=== PATIENT | female | born 1945 | race Caucasian/White ===

== ENCOUNTER 2017-08-16 15:59 | Emergency (ER) | payer MEDICARE ==
[2017-08-16] MEDS ORDERED: METOCLOPRAMIDE HCL INJ/PF 10 MG/2 ML SDV IV ONE (16:20)
--- NOTE | 2017-08-16 16:28 | ER Document Report ---
ED General - General Stated Complaint: ABDOMINAL PAIN Time Seen by Provider: 08/16/17 16:07 - HPI Notes: Patient is a 72-year-old female with a history of lung cancer (RUL removed), COPD (O2 dependent on 4L NC), AAA (9cm- per family on 1st CT), GERD who presents the ED complaining of right lower quadrant pain and epigastric versus right upper quadrant pain. 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 Certified Maintenance Welder states that there is no acute pulmonary condition at this time. Patient states that she has had this pain for months, but began getting worse over the last couple days. Patient states that she has been constipated, but did have a bowel movement today. She is urinating normally. Patient is not sure if food improves or worsens her symptoms. Patient has had nausea without vomiting patient states that the pain does not radiate. Pain is described as a sharp pain. Certified Maintenance Welder wanted her evaluated because of the risk of a rupturing AAA. Patient admits allergy to PCN's. Patient is a continued smoker. Denies any headache, fever, neck pain, URI, sore throat, chest pain, palpitations, syncope, cough, acute shortness of breath, wheeze, dyspnea, melena, hematochezia , vomiting/diarrhea, urinary retention, dysuria, hematuria, back pain, loss of control of bowel or bladder, numbness/tingling, saddle anesthesia, muscle paralysis/weakness, or rash. Family also states that they had a repeat CT which showed vasculature to be no more than 3cm. - Related Data Allergies/Adverse Reactions: Penicillins Allergy (Verified 08/16/17 17:39) Past Medical History - Social History Smoking Status: Current Every Day Smoker Family History: Reviewed & Not Pertinent Review of Systems - Review of Systems Notes: REVIEW OF SYSTEMS: CONSTITUTIONAL : Denies fever, chills, or sweats. Denies recent illness. EENT: Denies eye, ear, throat, or mouth pain or symptoms. Denies nasal or sinus congestion or discharge. Denies throat, tongue, or mouth swelling or difficulty swallowing. CARDIOVASCULAR: Denies chest pain. Denies palpitations or racing or irregular heart beat. Denies ankle edema. RESPIRATORY: see hpi. No acute resp symptoms. Denies acute cough, cold, or chest congestion. Denies acute shortness of breath, difficulty breathing, or wheezing. GASTROINTESTINAL: see hpi. GENITOURINARY: Denies difficulty urinating, painful urination, burning, frequency, blood in urine, or discharge. MUSCULOSKELETAL: Denies back or neck pain or stiffness. Denies joint pain or swelling. SKIN: Denies rash, lesions or sores. NEUROLOGICAL: Denies confusion or altered mental status. Denies passing out or loss of consciousness. Denies dizziness or lightheadedness. Denies headache. Denies weakness or paralysis or loss of use of either side. Denies problems with gait or speech. Denies sensory loss, numbness, or tingling. Denies seizures. ALL OTHER SYSTEMS REVIEWED AND NEGATIVE. Dictation was performed using [employer] voice recognition software Physical Exam - Vital signs Vitals: Resp 26 H 08/16/17 16:06 - Notes Notes: PHYSICAL EXAMINATION: GENERAL: Well-appearing, well-nourished and in no acute distress. A&Ox4. HEAD: Atraumatic, normocephalic. EYES: Pupils equal round and reactive to light, extraocular movements intact, sclera anicteric, conjunctiva are normal. ENT: Nares patent and without discharge. oropharynx clear without exudates. No tonsilar hypertrophy or erythema. Moist mucous membranes. NECK: Normal range of motion, supple without lymphadenopathy LUNGS: Breath sounds clear to auscultation bilaterally and equal. No wheezes rales or rhonchi. No retractions. Pt cannot speak in 4-5 word sentences, states that is normal for her. On 4L NC currently and is at 98%. HEART: Regular rate and rhythm without murmurs, rubs, gallops. ABDOMEN: Soft, nondistended abdomen. No guarding, no rebound. No masses appreciated. Normal bowel sounds present. No CVA tenderness bilaterally. + tenderness to the epigastrum/RUQ and RLQ. No obvious pulsatile mass noted. Musculoskeletal: LE's b/l: FROM to passive/active. Strength 5+/5. Extremities: No cyanosis, clubbing, or edema b/l. Peripheral pulses 2+. Capillary refill less than 3 seconds. NEUROLOGICAL: Cranial nerves grossly intact. Normal speech. Normal sensory, motor exams PSYCH: Normal mood, normal affect. SKIN: Warm, Dry, normal turgor, no rashes or lesions noted. Course - Re-evaluation Re-evalutation: 08/16/17 18:59 Patient is an afebrile, well-hydrated, 72-year-old female who presents to the ED with abdominal pain, suspect gastritis versus possible ulceration. Vitals are stable. PE is otherwise unremarkable. CBC, CMP, lipase, urinalysis, CT scan of the abdomen/pelvis with IV contrast, CXR were unremarkable for any acute pathology. GI cocktail resolved patient's pain in her epigastrium. Patient states that she is feeling much better. Patient is tolerating p.o. without any difficulties. Patient and family state they ready to go home. Low suspicion/risk for acute appendicitis, bowel obstruction, acute cholecystitis, acute cholangitis, perforated diverticulitis, incarcerated hernia, pancreatitis , perforated ulcer, peritonitis, sepsis, pelvic inflammatory disease, ectopic , tubo-ovarian abscess, ovarian torsion, or other systemic emergent condition at this time. Patient is aware that her condition can change from initial presentation and she needs to monitor symptoms closely and seek medical attention if any acute changes. I will send her home with a prescription for Carafate to add to her lansoprazole. Conservative measures otherwise for symptoms. Recheck with your PCM in 3-5 days. Consider consult with a metal numerical tool programmer. Return to the ED with any worsening/concerning symptoms otherwise as reviewed in discharge. Patient is in agreement. - Vital Signs Vital signs: Temp Pulse Resp BP Pulse Ox 97.8 F 13 104/64 94 08/16/17 16:25 08/16/17 17:03 08/16/17 16:15 08/16/17 16:15 - Laboratory Result Diagrams: 08/16/17 16:25 08/16/17 16:15 Laboratory results interpreted by me: 08/16/17 08/16/17 08/16/17 16:15 16:25 17:30 WBC 10.9 H RDW 15.2 H Direct Bilirubin 0.5 H Total Protein 6.1 L Urine Blood SMALL H Discharge - Discharge Clinical Impression: Gastritis Qualifiers: Gastritis type: unspecified gastritis Chronicity: acute Gastritis bleeding: without bleeding Qualified Code(s): K29.00 - Acute gastritis without bleeding Unspecified abdominal pain Qualifiers: Abdominal location: upper abdomen, unspecified Qualified Code(s): R10.10 - Upper abdominal pain, unspecified Condition: Stable Disposition: HOME, SELF-CARE Instructions: Abdominal Pain ([facility]), Gastritis ([facility]), Low-Fat Diet ([facility]) Additional Instructions: Maintain adequate fluid and food intake [place] diet ([employer] Bananas, rice, apples, toast, etc Zofran as needed Take carafate as directed tylenol if needed Monitor for any worsening symptoms Make sure you are staying hydrated enough to urinate and have normal BM's Recheck with your PCM in 3-5 days Schedule an appointment with Dr. Goldberg for further evaluation and management and possible endoscopy. Return to the ED with any worsening symptoms and/or development of fever, headache, chest pain, palpitations, syncope, shortness of breath, trouble breathing, abdominal pain, n/v/d, blood in stool/urine, weakness, or other worsening symptoms that are concerning to you. Prescriptions: Ondansetron [Zofran Odt 4 mg Tablet] 1 - 2 tab PO Q4H PRN #15 tab.rapdis PRN Reason: For Nausea/Vomiting Sucralfate [Carafate] 1 gm PO QID PRN #420 ml PRN Reason: Referrals: ALEX GOLDBERG MD [ACTIVE STAFF] - Follow up in 3-5 days
[2017-08-16 16:44] LABS: ABSOLUTE BASOPHILS # (AUTO) 0.1 10^3/uL (0.0-0.2); ABSOLUTE EOSINOPHILS # (AUTO) 0.5 10^3/uL (0.0-0.6); ABSOLUTE LYMPHOCYTES (AUTO) 2.9 10^3/uL (0.5-4.7); ABSOLUTE MONOCYTES (AUTO) 0.9 10^3/uL (0.1-1.4); ABSOLUTE NEUT (AUTO) 6.5 10^3/uL (1.7-8.2); BASOPHILS % (AUTO) 1.1 % (0-2); EOSINOPHILS % (AUTO) 4.5 % (0-6); HEMATOCRIT 37.5 % (36.0-47.0); HEMOGLOBIN 12.4 g/dL (12.0-15.5); LYMPHOCYTES % (AUTO) 26.6 % (13-45); MEAN CORPUSCULAR HEMOGLOBIN 31.7 pg (27.0-33.4); MEAN CORPUSCULAR HGB CONC 33.2 g/dL (32.0-36.0); MEAN CORPUSCULAR VOLUME 95 fl (80-97); PLATELET COUNT 288 10^3/uL (150-450); RED BLOOD COUNT 3.93 10^6/uL (3.72-5.28); RED CELL DISTRIBUTION WIDTH 15.2 % (11.5-14.0); SEGMENTED NEUTROPHILS % (AUTO) 59.8 % (42-78); TOTAL CELLS COUNTED % (AUTO) 100 %; WHITE BLOOD COUNT 10.9 10^3/uL (4.0-10.5)
[2017-08-16 16:47] LABS: ALANINE AMINOTRANSFERASE 28 U/L (9-52); ALBUMIN 3.7 g/dL (3.5-5.0); ALKALINE PHOSPHATASE 72 U/L (38-126); ANION GAP 12 (5-19); ASPARTATE AMINO TRANSFERASE 20 U/L (14-36); BILIRUBIN,DIRECT 0.5 mg/dL (0.0-0.4); BILIRUBIN,TOTAL 0.5 mg/dL (0.2-1.3); BLOOD UREA NITROGEN 7 mg/dL (7-20); CALCIUM 10.2 mg/dL (8.4-10.2); CARBON DIOXIDE 24 mmol/L (22-30); CHLORIDE 104 mmol/L (98-107); GLUCOSE 76 mg/dL (75-110); LIPASE 92.7 U/L (23-300); SODIUM 139.6 mmol/L (137-145); TOTAL PROTEIN 6.1 g/dL (6.3-8.2)
--- NOTE | 2017-08-16 17:16 | RADIOLOGY REPORT (SQ) ---
EXAM DESCRIPTION: CHEST PA/LAT COMPLETED DATE/TIME: 08/16/2017 5:05 pm REASON FOR STUDY: epigastric pain COMPARISON: None. EXAM PARAMETERS: NUMBER OF VIEWS: two views TECHNIQUE: Digital Frontal and Lateral radiographic views of the chest acquired. RADIATION DOSE: NA LIMITATIONS: none FINDINGS: LUNGS AND PLEURA: COPD with chronic interstitial changes. Linear increased density in the left base possibly atelectasis or scarring. Component of pneumonia in the left base cannot be exclu ded. Volume loss on the right with linear scarring in the base. Superiorly there is suggestion of c hronic cavitary changes with pleural thickening. Findings on the right may be postsurgical MEDIASTINUM AND HILAR STRUCTURES: No masses or contour abnormalities. HEART AND VASCULAR STRUCTURES: Heart normal size. No evidence for failure. BONES: No acute findings. HARDWARE: None in the chest. OTHER: No other significant finding. IMPRESSION: 1. Chronic appearing changes on the right with associated volume loss which may be post surgical. 2. COPD and chronic interstitial changes on the left. 3. Increased density in the left base which may only represent atelectasis or scarring. Component o f pneumonia cannot be excluded. TECHNICAL DOCUMENTATION: JOB ID: [id number] [employer]- All Rights Reserved
[2017-08-16 17:51] LABS: APPEARANCE,URINE CLEAR; BILIRUBIN,URINE NEGATIVE (NEGATIVE); COLOR,URINE STRAW; GLUCOSE, URINE NEGATIVE (NEGATIVE); KETONES,URINE NEGATIVE (NEGATIVE); LEUKOCYTE ESTERASE,URINE NEGATIVE (NEGATIVE); NITRITE,URINE NEGATIVE (NEGATIVE); PROTEIN,URINE NEGATIVE (NEGATIVE); URINE SPECIFIC GRAVITY 1.003; UROBILINOGEN,URINE NEGATIVE mg/dL (<2.0)
--- NOTE | 2017-08-16 18:08 | RADIOLOGY REPORT (SQ) ---
EXAM DESCRIPTION: CT ABD/PELVIS WITH IV ONLY COMPLETED DATE/TIME: 08/16/2017 5:51 pm REASON FOR STUDY: RLQ pain and upper abdominal pain COMPARISON: None. TECHNIQUE: CT scan of the abdomen and pelvis performed using helical scanning technique with dynamic intravenous contrast injection. No oral contrast. Images reviewed with lung, soft tissue, and bone windows. Reconstructed coronal and sagittal MPR images reviewed. Delayed images for evaluation of the urinary system also acquired. All images stored on PACS. All CT scanners at this facility use dose modulation, iterative reconstruction, and/or weight based d osing when appropriate to reduce radiation dose to as low as reasonably achievable (ALARA). [facility]: Dose Right [facility]: CareDose [facility]: Dose Right [facility]: Teradose 4D [facility]: [employer] CONTRAST TYPE AND DOSE: contrast/concentration: Isovue 370.00 mg/ml; Total Contrast Delivered: 52.0 ml; Total Saline Delivered: 40.0 ml RENAL FUNCTION: BUN 7 creatinine 0.64. RADIATION DOSE: CT Rad equipment meets quality standard of care and radiation dose reduction techniq ues were employed. CTDIvol: 4.9 - 5.6 mGy. DLP: 536 mGy-cm.. LIMITATIONS: None. FINDINGS: LOWER CHEST: Emphysematous changes with apparent chronic scarring and volume loss on the r ight. LIVER: Normal size. 1 cm cyst in the left lobe. No masses. No dilated ducts. SPLEEN: Normal size. No focal lesions. PANCREAS: No masses. No significant calcifications. No adjacent inflammation or peripancreatic fluid collections. Pancreatic duct not dilated. GALLBLADDER: No identified stones by CT criteria. No inflammatory changes to suggest cholecystitis. ADRENAL GLANDS: No significant masses or asymmetry. RIGHT KIDNEY AND URETER: 3 cm cortical cyst with small calcification. No solid masses. No signific ant calcifications. No hydronephrosis or hydroureter. LEFT KIDNEY AND URETER: Subcentimeter cortical cyst. No solid masses. No significant calcification s. No hydronephrosis or hydroureter. AORTA AND VESSELS: Upper limits of normal in size, measuring just under 3 cm in maximum diameter. No dissection. Renal arteries, SMA, celiac without stenosis. RETROPERITONEUM: No retroperitoneal adenopathy, hemorrhage or masses. BOWEL AND PERITONEAL CAVITY: Scattered diverticuli. No masses or inflammatory changes. No free fluid or peritoneal masses. APPENDIX: Normal. PELVIS: No mass. No free fluid. Normal bladder. ABDOMINAL WALL: No masses. No hernias. BONES: No significant or acute findings. Left hip prosthesis. Old left pelvic fracture. Degenerati ve changes in the spine. OTHER: No other significant finding. IMPRESSION: SEVERAL CHRONIC FINDINGS ABOVE. CYSTS IN THE LIVER AND KIDNEYS. COLONIC DIVERTICULO SIS WITH NO CT FINDINGS OF ACUTE DIVERTICULITIS. OTHERWISE NO SIGNIFICANT OR ACUTE FINDING IN THE AB DOMEN OR PELVIS ON CT SCAN WITH IV CONTRAST. TECHNICAL DOCUMENTATION: JOB ID: [id number] Quality ID # [id number]: Final reports with documentation of one or more dose reduction techniques (e.g., Au tomated exposure control, adjustment of the mA and/or kV according to patient size, use of iterative reconstruction technique) 2010 [employer]- All Rights Reserved
[2017-08-16 18:11] VITALS: BP 104/64
[2017-08-16] MEDS ORDERED: LIDOCAINE 2% VISCOUS SOLN 20 ML UDCUP PO ONE (18:12)
[2017-08-16] MEDS ORDERED: METOCLOPRAMIDE HCL ORAL SOLN 10 MG/10 ML UDCUP PO ONE (18:12)
[2017-08-16] MEDS ORDERED: MAG HYDROX/AL HYDROX/SIMETH SUSP 30 ML UDCUP PO ONE (18:12)
--- NOTE | 2017-08-17 08:02 | EKG REPORT ---
SEVERITY:- NORMAL ECG - SINUS RHYTHM : Confirmed by: Bert Diez MD 17-Aug-2017 08:01:39
== END 2017-08-16 19:13 | disposition home or self-care (01) ==
LOC: ER 15:59
DX: K29.00 Acute gastritis without bleeding (principal); R10.10 Upper abdominal pain, unspecified; Z85.118 Personal history of other malignant neoplasm of bronchus and lung; F17.200 Nicotine dependence, unspecified, uncomplicated
CPT/HCPCS: 93005; 99285; 96374; 36415; 83690; 85025; 80053; 81001; 71046; 74177; 93010; J3490; J2765; A9270

== ENCOUNTER 2017-08-20 21:03 | Emergency (ER) | payer MEDICARE ==
--- NOTE | 2017-08-20 22:10 | RADIOLOGY REPORT (SQ) ---
EXAM DESCRIPTION: ELBOW RIGHT OVER 2 VIEWS COMPLETED DATE/TIME: 08/20/2017 9:55 pm REASON FOR STUDY: injury/ swelling COMPARISON: None. NUMBER OF VIEWS: Four views. TECHNIQUE: AP, lateral, and both oblique radiographic images acquired of the right elbow. LIMITATIONS: None. FINDINGS: MINERALIZATION: Normal. BONES: Supracondylar distal humerus fracture with 3 mm posterior displacement and mild angulation and impaction. No joint dislocation. JOINT: Moderate effusion. SOFT TISSUES: No soft tissue swelling. No foreign body. OTHER: No other significant finding. IMPRESSION: Supracondylar distal humerus fracture with 3 mm posterior displacement and mild angulati on and impaction. No joint dislocation. TECHNICAL DOCUMENTATION: JOB ID: [id number] [place]-72 2010 [employer]- All Rights Reserved
--- NOTE | 2017-08-20 22:12 | ER Document Report ---
ED Medical Screen (RME) - General Chief Complaint: Arm Injury Stated Complaint: FALL,ARM PAIN Time Seen by Provider: 08/20/17 22:10 Mode of Arrival: Wheelchair Information source: Patient Notes: 72-year-old female presents to ED for complaint of pain to the right arm and elbow. She states tonight she stood up became very lightheaded and fell. She then could not get up. She states sometimes occasionally she gets lightheaded but she does not usually fall from this. She does have a history of COPD and lung cancer. Her right arm was x-rayed and the elbow is broken. O2 sat 98% lungs clear respirations unlabored. I have greeted and performed a rapid initial assessment of this patient. A comprehensive ED assessment and evaluation of the patient, analysis of test results and completion of medical decision making process will be conducted by an additional ED providers. TRAVEL OUTSIDE OF THE [place] IN LAST 30 DAYS: No - Related Data Allergies/Adverse Reactions: Penicillins Allergy (Verified 08/16/17 17:39) Past Medical History Pulmonary Medical History: Reports: Hx COPD Renal/ Medical History: Denies: Hx Peritoneal Dialysis
[2017-08-20] MEDS ORDERED: OXYCODONE-ACETAMINOPHEN 5-325 MG TABLET PO ONE (22:13)
--- NOTE | 2017-08-20 22:39 | EKG REPORT ---
SEVERITY:- NORMAL ECG - SINUS RHYTHM : Confirmed by: Ramez Cabello 20-Aug-2017 22:38:34
--- NOTE | 2017-08-20 23:11 | RADIOLOGY REPORT (SQ) ---
EXAM DESCRIPTION: CHEST PA/LAT COMPLETED DATE/TIME: 08/20/2017 10:53 pm REASON FOR STUDY: syncope COMPARISON: 08/16/2017 EXAM PARAMETERS: NUMBER OF VIEWS: two views TECHNIQUE: Digital Frontal and Lateral radiographic views of the chest acquired. RADIATION DOSE: NA LIMITATIONS: none FINDINGS: LUNGS AND PLEURA: Similar chronic scarring and architectural distortion in the right lung. Mild basilar fibrotic changes are present. No acute opacities, masses or pneumothorax. No pleural effusion. MEDIASTINUM AND HILAR STRUCTURES: Stable. HEART AND VASCULAR STRUCTURES: Stable. BONES: No acute findings. HARDWARE: None in the chest. OTHER: No other significant finding. IMPRESSION: No acute findings. TECHNICAL DOCUMENTATION: JOB ID: [id number] [place]-72 2010 [employer]- All Rights Reserved
[2017-08-21] MEDS ORDERED: FENTANYL CITRATE INJ/PF 100 MCG/2 ML AMPUL IV ONE (01:35)
[2017-08-21] MEDS ORDERED: FENTANYL CITRATE INJ/PF 100 MCG/2 ML AMPUL ONE (01:38)
--- NOTE | 2017-08-21 01:56 | ER Document Report ---
ED General - General Chief Complaint: Arm Injury Stated Complaint: FALL,ARM PAIN Time Seen by Provider: 08/20/17 22:10 Mode of Arrival: Wheelchair Notes: Patient is a 72-year-old female who presents after having a near syncopal episode and landing on her right upper extremity prior to arrival. Patient states she went from a sitting to standing position, became lightheaded and either passed out or almost passed out striking the ground with her right upper extremity. She denies any trauma to any other location. She does note a dull, constant throbbing pain to her right upper extremity just above the level of the elbow. She is right-hand dominant. Nothing improves the pain, moving arm worsens the pain. No history of similar injuries to this area in the past. She notes that she has had frequent near syncopal or syncopal episodes secondary to orthostasis in the past. She has not seen her general doctor regarding today's concerns. She denies any associated weakness, numbness, or altered sensation of the right upper extremity. She denies any concerns to any other area of her body other than her right upper extremity. She denies chest pain, shortness of breath, or abdominal pain. TRAVEL OUTSIDE OF THE [place] IN LAST 30 DAYS: No - Related Data Allergies/Adverse Reactions: Penicillins Allergy (Verified 08/16/17 17:39) Past Medical History - General Information source: Patient - Social History Smoking Status: Former Smoker Frequency of alcohol use: None Drug Abuse: None Lives with: Alone Family History: Reviewed & Not Pertinent Pulmonary Medical History: Reports: Hx COPD Renal/ Medical History: Denies: Hx Peritoneal Dialysis Review of Systems - Review of Systems Notes: Constitutional: Negative for fever. HENT: Negative for sore throat. Eyes: Negative for visual changes. Cardiovascular: Negative for chest pain. Respiratory: Negative for shortness of breath. Gastrointestinal: Negative for abdominal pain, vomiting or diarrhea. Genitourinary: Negative for dysuria. Musculoskeletal: Positive for right upper extremity injury Skin: Negative for rash. Neurological: Negative for headaches, weakness or numbness. 10 point ROS negative except as marked above and in HPI. Physical Exam - Vital signs Vitals: Temp Pulse Resp BP Pulse Ox 97 F L 85 18 134/74 H 98 08/20/17 22:03 08/20/17 22:03 08/20/17 22:03 08/20/17 22:03 08/20/17 22:03 Interpretation: Normal Notes: PHYSICAL EXAMINATION: GENERAL: Well-appearing, well-nourished and in no acute distress. HEAD: Atraumatic, normocephalic. EYES: Pupils equal round and reactive to light, extraocular movements intact, sclera anicteric, conjunctiva are normal. ENT: nares patent, oropharynx clear without exudates. Moist mucous membranes. NECK: Normal range of motion, supple without lymphadenopathy LUNGS: Breath sounds clear to auscultation bilaterally and equal. No wheezes rales or rhonchi. HEART: Regular rate and rhythm without murmurs, 2+ radial pulses bilaterally, capillary refill is less than 1 second in all digits of the right hand. ABDOMEN: Soft, nontender, normoactive bowel sounds. No guarding, no rebound. No masses appreciated. EXTREMITIES: There is swelling and ecchymosis of the right upper extremity just above the level of the elbow without obvious deformity. RMU motor and sensory distribution is intact in the right upper extremity. NEUROLOGICAL: No focal neurological deficits. Moves all extremities spontaneously and on command. PSYCH: Normal mood, normal affect. SKIN: Warm, Dry, normal turgor, no rashes or lesions noted. Course - Re-evaluation Re-evalutation: 08/21/17 01:55 Patient presents after becoming acutely lightheaded when going from sitting to standing position and having near syncope landing on the ground. She states is very similar to similar episodes she has had in the past and that she has frequent orthostatic hypotension. However she states that tonight she did land on her right upper extremity and unfortunately has sustained a supracondylar fracture. X-ray read does note 3 mm of posterior displacement and angulation. X-ray itself is overall unimpressive. I did discuss with orthopedic surgery it operations specialist as based on my review of the x-ray I am uncertain of what exactly I would reduce under procedural sedation. He is agreeable to avoiding reduction at this time based on the characterization of the fracture and instead is recommended a long arm posterior splint which will be placed in the emergency department. Pain control is also been provided. RMU motor and sensory distribution is intact. 2+ radial ulnar pulses. Cap refill is less than 2 seconds in all digits right hand. Patient did not sustain any head or neck trauma. She denies any pain to any other location other than her proximal right upper extremity. I have instructed her to follow-up with orthopedic surgery within the next 1 week. At this time will discharge with return precautions and follow-up recommendations. Verbal discharge instructions given a the bedside and opportunity for questions given. Medication warnings reviewed. Patient is in agreement with this plan and has verbalized understanding of return precautions and the need for primary care follow-up in the next 24-72 hours. - Vital Signs Vital signs: Temp Pulse Resp BP Pulse Ox 97 F L 85 18 134/74 H 98 08/20/17 22:03 08/20/17 22:03 08/20/17 22:03 08/20/17 22:03 08/20/17 22:03 - Laboratory Result Diagrams: 08/21/17 01:45 08/21/17 01:45 Laboratory results interpreted by me: 08/21/17 08/21/17 01:45 01:45 WBC 12.6 H RDW 15.2 H Absolute Neutrophils 8.4 H Direct Bilirubin 0.5 H AST 54 H - Diagnostic Test Radiology reviewed: Image reviewed, Reports reviewed - EKG Interpretation by Me Additional EKG results interpreted by me: 08/21/17 03:04 Sinus rhythm. Rate 82. No ST elevations or depressions. QTC is 444. Procedures - Immobilization Right Elbow Pre-Proc Neuro Vasc Exam: Normal Immobilizer type: Long arm posterior Performed by: Provider assisted Alignment checked and good: Yes Discharge - Discharge Clinical Impression: Right supracondylar humerus fracture Qualifiers: Encounter type: initial encounter Fracture type: closed Qualified Code(s): S42.411A - Displaced simple supracondylar fracture without intercondylar fracture of right humerus, initial encounter for closed fracture Syncope Qualifiers: Syncope type: unspecified Qualified Code(s): R55 - Syncope and collapse Condition: Stable Disposition: HOME, SELF-CARE Additional Instructions: You must wear the splint until you follow-up with orthopedic surgery. You have broken your humerus just above the level of your elbow. You were also seen today after an episode of passing out. Your EKG here is normal. At this time, we do not feel that your episode of passing out was from any life-threatening cause. Please drink plenty of fluids over the next several days. Return to emergency department if you have any further episodes of syncope, headache, weakness, numbness, chest pain, or shortness of breath. Follow-up with orthopedic surgery within the next 1 week. Return sooner to the emergency department if you develop discoloration of your hand, weakness or numbness of the right upper extremity, worsening of your pain, or any other symptoms that are worrisome to you. For your pain: Take acetaminophen 1000 mg every 6 hours as needed for pain. If this does not control your pain you may take 15 mg of oral morphine every 4 hours as needed. Please be very careful about using the oral morphine and only use this for severe pain. Prescriptions: Morphine Sulfate [Morphine Ir 15 mg Tablet] 15 mg PO Q4HP PRN #12 tablet PRN Reason: Referrals: EARNEST DE LEÓN PA-C [Primary Care Provider] - Follow up as needed ALEJANDRA COTA DO [ACTIVE STAFF] - Follow up in 1 week
[2017-08-21 02:01] LABS: ABSOLUTE BASOPHILS # (AUTO) 0.2 10^3/uL (0.0-0.2); ABSOLUTE EOSINOPHILS # (AUTO) 0.4 10^3/uL (0.0-0.6); ABSOLUTE LYMPHOCYTES (AUTO) 2.7 10^3/uL (0.5-4.7); ABSOLUTE NEUT (AUTO) 8.4 10^3/uL (1.7-8.2); BASOPHILS % (AUTO) 1.2 % (0-2); HEMATOCRIT 36.5 % (36.0-47.0); HEMOGLOBIN 12.1 g/dL (12.0-15.5); LYMPHOCYTES % (AUTO) 21.7 % (13-45); MEAN CORPUSCULAR HEMOGLOBIN 31.2 pg (27.0-33.4); MEAN CORPUSCULAR VOLUME 94 fl (80-97); MONOCYTES % (AUTO) 7.6 % (3-13); PLATELET COUNT 295 10^3/uL (150-450); RED BLOOD COUNT 3.87 10^6/uL (3.72-5.28); RED CELL DISTRIBUTION WIDTH 15.2 % (11.5-14.0); SEGMENTED NEUTROPHILS % (AUTO) 66.5 % (42-78); TOTAL CELLS COUNTED % (AUTO) 100 %; WHITE BLOOD COUNT 12.6 10^3/uL (4.0-10.5)
[2017-08-21] MEDS ORDERED: HYDROCODONE/ACETAMINOPHEN 5-325 MG (6 TAB/ER DISP) PO PRN (02:06)
[2017-08-21 02:34] LABS: ALANINE AMINOTRANSFERASE 24 U/L (9-52); ALBUMIN 4.1 g/dL (3.5-5.0); ALKALINE PHOSPHATASE 82 U/L (38-126); ANION GAP 9 (5-19); ASPARTATE AMINO TRANSFERASE 54 U/L (14-36); BILIRUBIN,DIRECT 0.5 mg/dL (0.0-0.4); BILIRUBIN,TOTAL 0.7 mg/dL (0.2-1.3); BLOOD UREA NITROGEN 9 mg/dL (7-20); CALCIUM 9.4 mg/dL (8.4-10.2); CARBON DIOXIDE 29 mmol/L (22-30); CHLORIDE 101 mmol/L (98-107); GLUCOSE 83 mg/dL (75-110); POTASSIUM 4.7 mmol/L (3.6-5.0); TOTAL PROTEIN 6.9 g/dL (6.3-8.2)
[2017-08-21 03:11] VITALS: BP 127/75
== END 2017-08-21 03:10 | disposition home or self-care (01) ==
LOC: ER 21:03
PROC: 2W38X1Z Immobilization of Right Upper Extremity using Splint (ICD-10-PCS; principal; 2017-08-20)
DX: S42.411A Displaced simple supracondylar fracture without intercondylar fracture of right humerus, initial encounter for closed fracture (principal); R55 Syncope and collapse; W18.39XA Other fall on same level, initial encounter; J44.9 Chronic obstructive pulmonary disease, unspecified; Z88.0 Allergy status to penicillin; Z87.891 Personal history of nicotine dependence
CPT/HCPCS: 93005; 99284; 36415; 85025; 80053; 84484; 71046; 73080; 93010; 29105; J3010; A9270 ×2

== ENCOUNTER → 2017-08-31 | Outpatient (CLI) | payer MEDICARE ==
--- NOTE | 2017-08-31 10:56 | RADIOLOGY REPORT (SQ) ---
EXAM DESCRIPTION: CT RT UPPER EXTREMITY WITHOUT COMPLETED DATE/TIME: 08/31/2017 10:08 am REASON FOR STUDY: DISPL SIMPLE SUPRCNDL FX W/O INTRCNDL FX R HUMERUS, INIT (S42.411A) S42.411A DISP L SIMPLE SUPRCNDL FX W/O INTRCNDL FX R HUMERUS, COMPARISON: None. TECHNIQUE: Axial imaging performed through the right elbow with reformatted coronal and sagittal troy ging windowed for bone and soft tissues. Images saved to PACS. 3D IMAGING: Were 3D images as MIP, SSD, or volume rendering performed at the work station? Yes. All CT scanners at this facility use dose modulation, iterative reconstruction, and/or weight based d osing when appropriate to reduce radiation dose to as low as reasonably achievable (ALARA). [facility]: Dose Right [facility]: CareDose [facility]: Dose Right [facility]: Teradose 4D [facility]: Smart Technologies LIMITATIONS: None. RADIATION DOSE: CT Rad equipment meets quality standard of care and radiation dose reduction techniq ues were employed. CTDIvol: 5.7 mGy. DLP: 124 mGy-cm. mGy. FINDINGS: Supracondylar fracture of the distal humerus with mild angulation and impaction. Radial h ead and capitellum are intact. No other fracture identified. IMPRESSION: Supracondylar fracture distal humerus. TECHNICAL DOCUMENTATION: JOB ID: [id number] Quality ID # [id number]: Final reports with documentation of one or more dose reduction techniques (e.g., Au tomated exposure control, adjustment of the mA and/or kV according to patient size, use of iterative reconstruction technique) 2010 [employer]- All Rights Reserved
== END ==
LOC: RAD 09:36
PROVIDERS: ATTEND Orthopaedic Surgery
DX: S42.411A Displaced simple supracondylar fracture without intercondylar fracture of right humerus, initial encounter for closed fracture (principal); X58.XXXA Exposure to other specified factors, initial encounter; Y93.9 Activity, unspecified; Y92.9 Unspecified place or not applicable; Y99.9 Unspecified external cause status

== ENCOUNTER → 2017-09-09 | Outpatient (CLI) | payer MEDICARE ==
--- NOTE | 2017-09-10 18:21 | RADIOLOGY REPORT (SQ) ---
EXAM DESCRIPTION: PET CT SKULL/THIGH COMPLETED DATE/TIME: 09/09/2017 6:28 pm REASON FOR STUDY: LUNG CANCER J98.59 OTHER DISEASES OF MEDIASTINUM, NOT ELSEWHERE CLASSIFI Z85.118 PERSONAL HISTORY OF MALIGNANT NEOPLASM OF BRONCHUS A COMPARISON: CT chest [facility] 05/02/2017 CT abdomen pelvis 08/16/2017 RADIONUCLIDE AND DOSE: 11.2 mCi F18 FDG The route of agent administration: Intravenous FASTING BLOOD SUGAR: 76 mg/dl CONTRAST TYPE AND DOSE: No CT contrast given. TECHNIQUE: Blood glucose level was verified. Above dose of FDG was injected intravenously. 2-D seg mented attenuation correction images were obtained from the base of the skull to the midthighs. Nonc ontrast CT images were obtained for attenuation correction and fusion with emission images. CT image s were performed without oral or intravenous contrast and are not sensitive for parenchymal lesions. A series of overlapping emission PET images were obtained. Images reviewed and manipulated at [facility] work station by the radiologist. Images stored on PACS. LIMITATIONS: None. FINDINGS: HEAD AND NECK: No areas of abnormal metabolic activity in the soft tissues of the head and neck. CHEST: Patient is post right upper lobectomy in 2011 for lung cancer. There are post therapeutic miguel nges in the right hemithorax including right upper lobectomy with volume loss and bandlike scarring i n the periphery of the remaining lung possibly from post radiation change. In the medial right upper lobe axial image 74, a 1.1 x 0.6 cm spiculated nodule is present with SUV o f 3 worrisome for malignancy. The left lung is hyperinflated and hyperlucent from obstructive disease. In the medial aspect of the left upper lobe, dorsal to the sternum, a 2.5 x 1.4 cm mass is present on axial image 90 with SUV of 6.6 worrisome for malignancy (was 2.1 x 1.5 cm in size on 05/02/2017). ABDOMEN AND PELVIS: No areas of abnormal metabolic activity in the abdomen or pelvis. Expected physi ologic activity is present in the genitourinary system and bowel. PROXIMAL LOWER EXTREMITIES: No areas of abnormal metabolic activity in the soft tissues of the lower extremities. BONES: No abnormal metabolic activity in the visualized skeleton. ADDITIONAL CT FINDINGS: Calcified carotid arteries and coronary arteries. Infrarenal abdominal aorta 3 cm in greatest diameter. Left total hip replacement. Complex 2.7 cm cyst right upper pole kidney with calcification in the wall. Right lung parenchymal volume loss post lumpectomy. Ectasia of the thoracic the esophagus in the upper chest OTHER: Liver background activity 2.0 SUV. Blood pool background activity 1.3 SUV IMPRESSION: 1.1 cm hypermetabolic nodule in the medial aspect of the right lung, worrisome for malig prachi 2.5 x 1.4 cm hypermetabolic nodule in the medial left upper lobe worrisome for malignancy TECHNICAL DOCUMENTATION: JOB ID: [id number] [employer]- All Rights Reserved Reading location - IP/workstation name: [email or web address]
== END ==
LOC: RAD 15:32
PROVIDERS: ATTEND Internal Medicine Critical Care Medicine
DX: R91.1 Solitary pulmonary nodule (principal); R91.8 Other nonspecific abnormal finding of lung field; J98.59 Other diseases of mediastinum, not elsewhere classified; Z85.118 Personal history of other malignant neoplasm of bronchus and lung; J44.9 Chronic obstructive pulmonary disease, unspecified; F11.90 Opioid use, unspecified, uncomplicated
CPT/HCPCS: 78815; A9552

== ENCOUNTER → 2017-12-09 | Outpatient (CLI) | payer MEDICARE ==
--- NOTE | 2017-12-11 08:12 | RADIOLOGY REPORT (SQ) ---
EXAM DESCRIPTION: PET CT SKULL/THIGH COMPLETED DATE/TIME: 12/09/2017 7:25 pm REASON FOR STUDY: PERSONAL HISTORY OF OTHER MALIGNANT NEOPLASM Z85.118 PERSONAL HISTORY OF MALIGNAN T NEOPLASM OF BRONCHUS A COMPARISON: CT abdomen pelvis 08/16/2017 PET-CT 09/09/2017 RADIONUCLIDE AND DOSE: 12.7 mCi F18 FDG The route of agent administration: Intravenous FASTING BLOOD SUGAR: 88 mg/dl CONTRAST TYPE AND DOSE: No CT contrast given. TECHNIQUE: Blood glucose level was verified. Above dose of FDG was injected intravenously. 2-D seg mented attenuation correction images were obtained from the base of the skull to the midthighs. Nonc ontrast CT images were obtained for attenuation correction and fusion with emission images. CT image s were performed without oral or intravenous contrast and are not sensitive for parenchymal lesions. A series of overlapping emission PET images were obtained. Images reviewed and manipulated at [facility] work station by the radiologist. Images stored on PACS. LIMITATIONS: None. FINDINGS: HEAD AND NECK: No areas of abnormal metabolic activity in the soft tissues of the head and neck. CHEST: Post right upper lobectomy for non-small cell lung carcinoma in 2011. There is right upper ch est volume loss scarring. Along the medial right upper lobe, a 1.1 x 0.8 cm nodule is present with SUV 2.5 on axial image 60 (w as 1.1 X 0.6 cm with SUV 3 on 09/09/2017) Along the medial aspect left upper lobe, a 2.5 x 1.4 cm nodule is present with SUV 4.9 (was 2.5 x 1.4 cm with SUV 6.6 on 09/09/2017). ABDOMEN AND PELVIS: No areas of abnormal metabolic activity in the abdomen or pelvis. Expected physi ologic activity is present in the genitourinary system and bowel. PROXIMAL LOWER EXTREMITIES: No areas of abnormal metabolic activity in the soft tissues of the lower extremities. BONES: No abnormal metabolic activity in the visualized skeleton. ADDITIONAL CT FINDINGS: Obstructive lung disease, calcified coronary arteries and carotid bifurcation s, unruptured infrarenal abdominal aortic aneurysm 3 cm in size. Left total hip replacement. 2.7 cm complex cyst right upper pole kidney. OTHER: Liver background activity SUV 1.5, blood pool background activity 1.2 SUV. IMPRESSION: Persistent metabolically active nodules in the medial right upper lobe and medial left u pper lobe worrisome for malignancy. TECHNICAL DOCUMENTATION: JOB ID: [id number] [employer]- All Rights Reserved Reading location - IP/workstation name: [email or web address]
== END ==
LOC: RAD 15:47
PROVIDERS: ATTEND Internal Medicine Medical Oncology
DX: R91.8 Other nonspecific abnormal finding of lung field (principal); Z85.118 Personal history of other malignant neoplasm of bronchus and lung; J44.9 Chronic obstructive pulmonary disease, unspecified; I71.4 Abdominal aortic aneurysm, without rupture; N28.1 Cyst of kidney, acquired
CPT/HCPCS: 78815; A9552

== ENCOUNTER → 2018-05-08 | Outpatient (CLI) | payer MEDICARE ==
--- NOTE | 2018-05-08 13:46 | RADIOLOGY REPORT (SQ) ---
EXAM DESCRIPTION: KNEE LEFT 3 VIEWS COMPLETED DATE/TIME: 05/08/2018 1:32 pm REASON FOR STUDY: RECURRENT DISLOCATION, UNSPECIFIED KNEE M24.469 RECURRENT DISLOCATION, UNSPECIFIE D KNEE Z85.118 PERSONAL HISTORY OF MALIGNANT NEOPLASM OF BRONCHUS A COMPARISON: None. NUMBER OF VIEWS: Three views. TECHNIQUE: AP, lateral, and sunrise patella radiographic images acquired of the left knee. LIMITATIONS: None. FINDINGS: MINERALIZATION: Osteopenia. BONES: No acute fracture or dislocation. No worrisome bone lesions. JOINT: No effusion. SOFT TISSUES: No soft tissue swelling. No radio-opaque foreign body. OTHER: No other significant finding. IMPRESSION: NO RADIOGRAPHIC EVIDENCE OF ACUTE INJURY. TECHNICAL DOCUMENTATION: JOB ID: [id number] [employer]- All Rights Reserved Reading location - IP/workstation name: [email or web address]
--- NOTE | 2018-05-08 13:52 | RADIOLOGY REPORT (SQ) ---
EXAM DESCRIPTION: CHEST PA/LATERAL COMPLETED DATE/TIME: 05/08/2018 1:31 pm REASON FOR STUDY: PERSONAL HISTORY OF MALIGNANT NEOPLASM OF BRONCHUS AND LUNG M24.469 RECURRENT DIS LOCATION, UNSPECIFIED KNEE Z85.118 PERSONAL HISTORY OF MALIGNANT NEOPLASM OF BRONCHUS A COMPARISON: 08/20/2017 NUMBER OF VIEWS: Two view TECHNIQUE: Frontal and lateral radiographic images of the chest acquired. LIMITATIONS: None. FINDINGS: LUNGS AND PLEURA: Subsegmental airspace disease in the left hand lobe. There is a backgro und of COPD and chronic changes status post right upper lobectomy. No significant effusion. MEDIASTINUM AND HILAR STRUCTURES: Stable heart size and mediastinal structures. HEART AND VASCULAR STRUCTURES: Stable appearance. BONES: No acute findings. HARDWARE: None in the chest. OTHER: No other significant finding. IMPRESSION: Left lower lobe airspace disease. In the appropriate clinical setting this is consisten t with pneumonia. TECHNICAL DOCUMENTATION: JOB ID: [id number] [employer]- All Rights Reserved Reading location - IP/workstation name: [email or web address]
== END ==
LOC: OD 12:44
PROVIDERS: ATTEND Internal Medicine Medical Oncology
DX: M24.462 Recurrent dislocation, left knee (principal); Z85.118 Personal history of other malignant neoplasm of bronchus and lung
CPT/HCPCS: 71046

== ENCOUNTER → 2018-05-19 | Outpatient (CLI) | payer MEDICARE ==
--- NOTE | 2018-05-20 09:50 | RADIOLOGY REPORT (SQ) ---
EXAM DESCRIPTION: PET CT SKULL/THIGH COMPLETED DATE/TIME: 05/19/2018 9:05 pm REASON FOR STUDY: LUNG CANCER Z85.118 PERSONAL HISTORY OF MALIGNANT NEOPLASM OF BRONCHUS A COMPARISON: 12/09/2017 and 09/09/2017. RADIONUCLIDE AND DOSE: 10 mCi F18 FDG The route of agent administration: Intravenous FASTING BLOOD SUGAR: 79 mg/dl CONTRAST TYPE AND DOSE: No CT contrast given. TECHNIQUE: Blood glucose level was verified. Above dose of FDG was injected intravenously. 2-D seg mented attenuation correction images were obtained from the base of the skull to the midthighs. Nonc ontrast CT images were obtained for attenuation correction and fusion with emission images. CT image s were performed without oral or intravenous contrast and are not sensitive for parenchymal lesions. A series of overlapping emission PET images were obtained. Images [facility] by the radiologist. Images stored on PACS. LIMITATIONS: None. FINDINGS: HEAD AND NECK: No areas of abnormal metabolic activity in the soft tissues of the head and neck. CHEST: Emphysematous changes with scarring. Surgical changes in the right lung with volume loss. 1. 1 cm nodule in the medial right upper lobe (axial image 61) with mean SUV 1.14. Prior SUV 3. 1.5 x 1.7 cm nodule in the medial left upper lobe (axial image 74) with mean SUV 1.94. Prior measurement 1 .4 x 2.5 cm and prior SUV 6.6. Adjacent metallic radiotherapy markers. New pulmonary nodules in the lung bases. Nodule in the right lung base (axial image 101) measures 1.1 x 1.5 cm with mean SUV 4.6 2. Several spiculated nodules in the left lung base (axial images 102-106). The more anterior nodul e measures 1.0 x 1.6 cm with mean SUV 5.88. The larger nodule in the mid lateral left lung base rios ures 2.0 x 2.5 cm with mean SUV 6.29. The more posterior nodule measures 0.8 x 1.0 cm with mean SUV 5.35. Nodule in the medial left lower lobe (axial image 108) measures 9.5 mm with mean SUV 3.25. ABDOMEN AND PELVIS: No areas of abnormal metabolic activity in the abdomen or pelvis. Expected physi ologic activity is present in the genitourinary system and bowel. PROXIMAL LOWER EXTREMITIES: No areas of abnormal metabolic activity in the soft tissues of the lower extremities. BONES: No abnormal metabolic activity in the visualized skeleton. ADDITIONAL CT FINDINGS: Stable 3.0 cm infrarenal abdominal aortic aneurysm. Stable complex cyst in t he right kidney with focal calcification. OTHER: No other significant findings. Background blood pool activity mean SUV 1.67. Background live r activity mean SUV 2.25. IMPRESSION: 1. PREVIOUSLY SEEN NODULES IN THE RIGHT UPPER LOBE AND LEFT UPPER LOBE HAVE IMPROVED FOLLOWING THERAP Y. HOWEVER, THERE ARE NOW SEVERAL NEW NODULES IN THE RIGHT AND LEFT LOWER LOBES WITH ABNORMAL ACTIVI TY CONSISTENT WITH PROGRESSIVE METASTATIC INVOLVEMENT IN THE CHEST. 2. NO EVIDENCE OF DISTANT METASTASES. NO ABNORMAL ACTIVITY IN THE HEAD, NECK, ABDOMEN, OR PELVIS. S TABLE CHRONIC CT FINDINGS ABOVE. TECHNICAL DOCUMENTATION: JOB ID: [id number] [email or web address]- All Rights Reserved Reading location - IP/workstation name: [email or web address]
== END ==
LOC: RAD 18:45
PROVIDERS: ATTEND Internal Medicine Medical Oncology
DX: R91.8 Other nonspecific abnormal finding of lung field (principal); Z85.118 Personal history of other malignant neoplasm of bronchus and lung
CPT/HCPCS: 78815; A9552

== ENCOUNTER → 2018-09-24 | Outpatient (CLI) | payer MEDICARE ==
--- NOTE | 2018-09-25 08:38 | RADIOLOGY REPORT (SQ) ---
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 RADIONUCLIDE AND DOSE: 10 mCi F18 FDG The route of agent administration: Intravenous FASTING BLOOD SUGAR: 127 mg/dl CONTRAST TYPE AND DOSE: No CT contrast given. TECHNIQUE: Blood glucose level was verified. Above dose of FDG was injected intravenously. 2-D seg mented attenuation correction images were obtained from the base of the skull to the midthighs. Nonc ontrast CT images were obtained for attenuation correction and fusion with emission images. CT image s were performed without oral or intravenous contrast and are not sensitive for parenchymal lesions. A series of overlapping emission PET images were obtained. [facility] by the radiologist. Images stored on PACS. LIMITATIONS: None. FINDINGS: HEAD AND NECK: No areas of abnormal metabolic activity in the soft tissues of the head and neck. CHEST: Emphysematous changes with scarring. Surgical changes in the right lung with volume loss. Ra diotherapy markers in the left upper lobe. Previously evaluated pulmonary nodules as follows: 6 mm nodule in the medial right upper lobe (axial image 48). Prior measurement 1.1 cm. Mean SUV 1.1 8. Prior value 1.14. 1.1 cm nodule in the medial left upper lobe (axial image 61). Prior measurement 1.5 x 1.7 cm. Mean SUV 1.44. Prior value 1.94. 0.7 x 1.3 cm nodule in the right lung base (axial image 91). Prior measurement 1.1 x 1.5 cm. Mean S UV 1.34. Prior value 4.62. 1.5 x 1.6 cm nodule in the lateral left lung base (axial image 97). Prior measurement 2.0 x 2.5 cm. Mean SUV 3.1. Prior value 6.29. 1.2 cm nodule in the posterolateral left lung base (image 97). Prior measurement 0.8 x 1.0 cm. Mean SUV 2.43. Prior value 5.35. 1.0 cm nodule in the medial left lung base (axial image 101). Prior measurement 9.5 mm. Mean SUV 0. 44. Prior value 3.25. ABDOMEN AND PELVIS: No areas of abnormal metabolic activity in the abdomen or pelvis. Expected physi ologic activity is present in the genitourinary system and bowel. PROXIMAL LOWER EXTREMITIES: No areas of abnormal metabolic activity in the soft tissues of the lower extremities. BONES: No abnormal metabolic activity in the visualized skeleton. ADDITIONAL CT FINDINGS: Right renal cyst unchanged. Small infrarenal abdominal aortic aneurysm, curr ent measurement 2.8 cm, essentially unchanged. No additional significant findings on the noncontrast CT images. OTHER: Background blood pool activity mean SUV 1.91. Background liver activity mean SUV 2.39. No ot her significant findings. IMPRESSION: 1. MULTIPLE PULMONARY NODULES DESCRIBED ABOVE. OVERALL IMPROVEMENT WITH DECREASE IN THE SUV VALUE S AND VARIABLE DECREASE IN SIZE. NO NEW PULMONARY NODULES. 2. NO EVIDENCE OF METASTATIC INVOLVEMENT OUTSIDE OF THE CHEST. STABLE CT FINDINGS ABOVE. TECHNICAL DOCUMENTATION: JOB ID: [id number] [employer]- All Rights Reserved Reading location - IP/workstation name: [email or web address]
== END ==
LOC: RAD 18:59
PROVIDERS: ATTEND Internal Medicine Medical Oncology
DX: R91.8 Other nonspecific abnormal finding of lung field (principal); Z85.118 Personal history of other malignant neoplasm of bronchus and lung
CPT/HCPCS: 78815; A9552

== ENCOUNTER → 2018-10-21 | Outpatient (CLI) | payer MEDICARE ==
--- NOTE | 2018-10-22 08:57 | RADIOLOGY REPORT (SQ) ---
EXAM DESCRIPTION: NM MUGA REST COMPLETED DATE/TIME: 10/21/2018 4:20 pm REASON FOR STUDY: I51.9 HEART DISEASE, UNSPECIFIED R06.02 SHORTNESS OF BREATH I51.9 HEART DISEASE, UNSPECIFIED R06.02 SHORTNESS OF BREATH COMPARISON: PET-CT 09/24/2018 RADIONUCLIDE AND DOSE: 19.7 mCi technetium 99m labeled red blood cells The route of agent administration: Intravenous TECHNIQUE: Following administration of the radionuclide, gated images of the heart are obtained in t hree projections. Left ventricular functional analysis performed. LIMITATIONS: None. FINDINGS: LEFT VENTRICULAR FUNCTION: EJECTION FRACTION: 62%. END-DIASTOLIC VOLUME: 154 mL. END-SYSTOLIC VOLUME: 29 mL. WALL MOTION: No focal wall motion abnormalities. OTHER: No other significant finding. IMPRESSION: NORMAL CARDIAC MUGA STUDY. NORMAL LEFT VENTRICULAR FUNCTION of 62% TECHNICAL DOCUMENTATION: JOB ID: [id number] [employer]- All Rights Reserved Reading location - IP/workstation name: [email or web address]
== END ==
LOC: RAD 19:34
PROVIDERS: ATTEND Family Medicine
DX: I51.9 Heart disease, unspecified (principal); R06.02 Shortness of breath
CPT/HCPCS: 78472; A9560; Q9969

== ENCOUNTER → 2019-01-05 | Outpatient (CLI) | payer MEDICARE ==
--- NOTE | 2019-01-06 09:43 | RADIOLOGY REPORT (SQ) ---
EXAM DESCRIPTION: PET CT SKULL/THIGH COMPLETED DATE/TIME: 01/05/2019 10:47 pm REASON FOR STUDY: (C34.82)MALIGNANT NEOPLASM OF OVRLP SITES OF LEFT BRONCHUS AND LUNG C34.82 MALIGN ANT NEOPLASM OF OVRLP SITES OF LEFT BRONCHUS AN COMPARISON: 09/24/2018 RADIONUCLIDE AND DOSE: 11.75 mCi F18 FDG The route of agent administration: Intravenous FASTING BLOOD SUGAR: 158 mg/dl CONTRAST TYPE AND DOSE: No CT contrast given. TECHNIQUE: Blood glucose level was verified. Above dose of FDG was injected intravenously. 2-D seg mented attenuation correction images were obtained from the base of the skull to the midthighs. Nonc ontrast CT images were obtained for attenuation correction and fusion with emission images. CT image s were performed without oral or intravenous contrast and are not sensitive for parenchymal lesions. A series of overlapping emission PET images were obtained. Images reviewed and manipulated at [facility] by the radiologist. Images stored on PACS. LIMITATIONS: None. FINDINGS: HEAD AND NECK: No areas of abnormal metabolic activity in the soft tissues of the head and neck. CHEST: Pleural-based mass left lower lobe measures 6.2 x 2.3 cm and 3.2 SUV, previously 5.8 x 2.0 cm. No other hypermetabolic lesions. ABDOMEN AND PELVIS: No areas of abnormal metabolic activity in the abdomen or pelvis. Expected physi ologic activity is present in the genitourinary system and bowel. PROXIMAL LOWER EXTREMITIES: No areas of abnormal metabolic activity in the soft tissues of the lower extremities. BONES: No abnormal metabolic activity in the visualized skeleton. ADDITIONAL CT FINDINGS: Prior right upper lobectomy. Stable rind of pleural thickening and cavitary lesion in the surgical bed. Stable areas of pleural thickening along the fissure. Stable pleural th ickening adjacent to radiation seed markers in the left upper lobe. Stable 3 cm aortic aneurysm. Si gmoid diverticulosis. Stable complex cyst right kidney. Right-sided port tip in the SVC. OTHER: Blood pool 1.5 SUV. Liver background 2.2 SUV. IMPRESSION: Slight increase in size of hypermetabolic pleural-based mass left lower lobe. No other hypermetabolic lesions. TECHNICAL DOCUMENTATION: JOB ID: [id number] [employer]- All Rights Reserved Reading location - IP/workstation name: [email or web address]
== END ==
LOC: RAD 15:38
PROVIDERS: ATTEND Internal Medicine Medical Oncology
DX: C34.82 Malignant neoplasm of overlapping sites of left bronchus and lung (principal)
CPT/HCPCS: 78815; A9552

== ENCOUNTER → 2019-03-03 | Outpatient (CLI) | payer MEDICARE ==
--- NOTE | 2019-03-03 16:37 | RADIOLOGY REPORT (SQ) ---
EXAM DESCRIPTION: MRI THORACIC SPINE WITHOUT COMPLETED DATE/TIME: 03/03/2019 3:29 pm REASON FOR STUDY: C34.90 MALIGNANT NEOPLASM OF UNSP PART OF UNSP BRONCHUS OR LUNG C34.90 MALIGNANT NEOPLASM OF UNSP PART OF UNSP BRONCHUS OR L COMPARISON: None. TECHNIQUE: Sagittal and Axial imaging includes T1, T2, STIR and gradient echo sequences. LIMITATIONS: Motion artifact. FINDINGS: LOCALIZER: No worrisome findings. ALIGNMENT: Exaggerated kyphosis. VERTEBRAE: Mild compression fractures of T8 and to lesser degree T6 with preserved marrow signal. No acute fracture. BONE MARROW: Normal. No marrow replacement or reactive changes. HARDWARE: None in the spine. CORD: Normal in size and signal intensity. SOFT TISSUES: No soft tissue masses. THORACIC DISCS T1-T12: No significant spinal stenosis or exit foraminal stenosis. IMPRESSION: Chronic compression fractures. No acute findings. TECHNICAL DOCUMENTATION: JOB ID: [id number] [employer]- All Rights Reserved Reading location - IP/workstation name: [email or web address]
== END ==
LOC: WI 15:00
PROVIDERS: ATTEND Internal Medicine Hematology & Oncology
DX: C34.90 Malignant neoplasm of unspecified part of unspecified bronchus or lung (principal); M48.54XA Collapsed vertebra, not elsewhere classified, thoracic region, initial encounter for fracture
CPT/HCPCS: 72146

== ENCOUNTER 2019-05-15 14:15 | Inpatient (IN) | payer MEDICARE ==
[2019-05-15] MEDS ORDERED: FENTANYL CITRATE INJ/PF 100 MCG/2 ML AMPUL IV ONE ×2 (15:11→18:38)
--- NOTE | 2019-05-15 15:11 | RADIOLOGY REPORT (SQ) ---
EXAM DESCRIPTION: CT CERVICAL SPINE WITHOUT COMPLETED DATE/TIME: 05/15/2019 2:59 pm REASON FOR STUDY: fall COMPARISON: CT chest, 01/28/2019 TECHNIQUE: Axial images acquired through the cervical spine without intravenous contrast. Images re viewed with lung, soft tissue and bone windows. Reconstructed coronal and sagittal MPR images review ed. Images stored on PACS. All CT scanners at this facility use dose modulation, iterative reconstruction, and/or weight based d osing when appropriate to reduce radiation dose to as low as reasonably achievable (ALARA). [facility]: Dose Right [facility]: CareDose [facility]: Dose Right [facility]: Teradose 4D [facility]: Smart [employer] RADIATION DOSE: CT Rad equipment meets quality standard of care and radiation dose reduction techniq ues were employed. CTDIvol: 6.1 mGy. DLP: 136 mGy-cm. mGy. LIMITATIONS: None. FINDINGS: ALIGNMENT: Anatomic. MINERALIZATION: Normal. VERTEBRAL BODIES: No fractures or dislocation. DISCS: Focally moderate disc degenerative disease and osteophytosis of C3-C4 and C5-C6. FACETS, LATERAL MASSES, POSTERIOR ELEMENTS: No fractures. No dislocation. No acute findings. HARDWARE: None in the spine. VISUALIZED RIBS: No fractures. LUNG APICES AND SOFT TISSUES: Postoperative findings of prior right upper lobectomy, better evaluated by dedicated CT examination of the chest. OTHER: Right internal jugular port catheter. IMPRESSION: No fracture or static subluxation of the cervical spine. TECHNICAL DOCUMENTATION: JOB ID: [id number] Quality ID # [id number]: Final reports with documentation of one or more dose reduction techniques (e.g., Au tomated exposure control, adjustment of the mA and/or kV according to patient size, use of iterative reconstruction technique) 2010 [employer]- All Rights Reserved Reading location - IP/workstation name: [email or web address]
--- NOTE | 2019-05-15 15:12 | RADIOLOGY REPORT (SQ) ---
EXAM DESCRIPTION: PELVIS AP COMPLETED DATE/TIME: 05/15/2019 3:03 pm REASON FOR STUDY: Fall COMPARISON: None. NUMBER OF VIEWS: One view TECHNIQUE: AP Pelvis LIMITATIONS: None. FINDINGS: MINERALIZATION: Osteopenia. HIPS: Prior total left arthroplasty. PELVIS AND SACRUM: No acute fracture or dislocation. No worrisome bone lesions. PUBIS AND ISCHIUM: Fractures of the left superior and inferior pubic ramus. LOWER LUMBAR SPINE: Degenerative changes. SOFT TISSUES: No findings. OTHER: No other significant finding. IMPRESSION: Fractures of the left superior and inferior pubic ramus. COMMENT: Pelvic fractures are often occult on plain radiographs. If strong clinical suspicion for f racture, recommend CT or MR. TECHNICAL DOCUMENTATION: JOB ID: [id number] [employer]- All Rights Reserved Reading location - IP/workstation name: [email or web address]
--- NOTE | 2019-05-15 15:15 | RADIOLOGY REPORT (SQ) ---
EXAM DESCRIPTION: CT HEAD WITHOUT COMPLETED DATE/TIME: 05/15/2019 2:59 pm REASON FOR STUDY: fall COMPARISON: None. TECHNIQUE: Axial images acquired through the brain without intravenous contrast. Images reviewed wi th bone, brain and subdural windows. Additional sagittal and coronal reconstructions were generated. Images stored on PACS. All CT scanners at this facility use dose modulation, iterative reconstruction, and/or weight based d osing when appropriate to reduce radiation dose to as low as reasonably achievable (ALARA). [facility]: Dose Right [facility]: CareDose [facility]: Dose Right [facility]: Teradose 4D [facility]: LookStat RADIATION DOSE: CT Rad equipment meets quality standard of care and radiation dose reduction techniq ues were employed. CTDIvol: 53.2 mGy. DLP: 1044 mGy-cm. mGy. LIMITATIONS: None. FINDINGS: VENTRICLES: Normal size and contour. CEREBRUM: No masses. No hemorrhage. No midline shift. No evidence for acute infarction. Extensive areas of low density in the white matter most likely chronic small vessel ischemic changes. CEREBELLUM: No masses. No hemorrhage. No alteration of density. No evidence for acute infarction. EXTRAAXIAL SPACES: No fluid collections. No masses. ORBITS AND GLOBE: No intra- or extraconal masses. Normal contour of globe without masses. CALVARIUM: No fracture. PARANASAL SINUSES: No fluid or mucosal thickening. SOFT TISSUES: No mass or hematoma. OTHER: No other significant finding. IMPRESSION: No acute intracranial pathology. Small vessel white matter disease. EVIDENCE OF ACUTE STROKE: NO. COMMENT: Quality ID # [id number]: Final reports with documentation of one or more dose reduction techniques (e.g., Automated exposure control, adjustment of the mA and/or kV according to patient size, use of iterative reconstruction technique) TECHNICAL DOCUMENTATION: JOB ID: [id number] [employer]- All Rights Reserved Reading location - IP/workstation name: [email or web address]
--- NOTE | 2019-05-15 15:15 | ER Document Report ---
ED Fall - General Chief Complaint: Fall Stated Complaint: FALL/BODY PAIN Time Seen by Provider: 05/15/19 14:55 Notes: Patient is a 74-year-old female presents to the emergency department for right hip pain. Patient voices last evening her headboard broke. States she got tangled in her oxygen tubing and ended up on the floor. Patient voices she does have a life alert button but was unable to reach it. States she laid on the floor until home health aide came to the house today. Patient voices continued pain in her right hip. Patient is unsure of any loss of consciousness. TRAVEL OUTSIDE OF THE [place] IN LAST 30 DAYS: No - Related data Allergies/Adverse Reactions: Penicillins Allergy (Verified 08/30/17 13:58) Hives Home Medications: Vitamin b12. Vitamin C. Vitamin D3. Vitamin E. Creon. Calcium. CO2 Releasing. Furosemide. Lansoprazole. Marinol. Melatonin. Potassium Chloride Past Medical History - General Information source: Patient - Social History Smoking Status: Current Every Day Smoker Frequency of alcohol use: Heavy Drug Abuse: None Family History: Reviewed & Not Pertinent Patient has suicidal ideation: No Patient has homicidal ideation: No Pulmonary Medical History: Reports: Hx COPD Renal/ Medical History: Denies: Hx Peritoneal Dialysis Malignancy Medical History: Reports: Hx Lung Cancer Psychiatric Medical History: Reports: Hx Depression Past Surgical History: Reports: Hx Orthopedic Surgery - pelvis, R shoulder,, Hx Tonsillectomy Review of Systems - Review of Systems Constitutional: denies: Fever EENT: No symptoms reported Cardiovascular: No symptoms reported Respiratory: No symptoms reported Gastrointestinal: No symptoms reported Genitourinary: No symptoms reported Female Genitourinary: No symptoms reported Musculoskeletal: See HPI Skin: See HPI Hematologic/Lymphatic: No symptoms reported Neurological/Psychological: See HPI Physical Exam - Vital signs Vitals: Pulse Ox 97 05/15/19 18:47 - Notes Notes: GENERAL: Alert, interacts well. No acute distress. HEAD: Normocephalic, quarter size ecchymosis noted anterior forehead. Non- boggy. EYES: Pupils equal, round, and reactive to light. Extraocular movements intact. ENT: Oral mucosa moist, tongue midline. Nares patent, no nasal septal hematoma, TM's intact, no hemotympanum noted bilaterally. NECK: C-collar in place. Supple. Trachea midline. LUNGS: Clear to auscultation bilaterally, no wheezes, rales, or rhonchi. No respiratory distress. HEART: Regular rate and rhythm. No murmur ABDOMEN: Soft, non-tender. Non-distended. Bowel sounds present in all 4 quadrants. EXTREMITIES: Moves all 4 extremities spontaneously. No edema, normal radial and dorsalis pedis pulses bilaterally. No cyanosis. Patient will not straighten right lower extremity. Pain upon palpation right hip. BACK: no thoracic, lumbar midline tenderness. No saddle anesthesia, normal distal neurovascular exam. NEUROLOGICAL: Alert and oriented x3. Normal speech. cranial nerves II through XII grossly intact PSYCH: Normal affect, normal mood. SKIN: Warm, dry, normal turgor. Dime size abrasion noted left elbow, no bony tenderness noted. Course - Re-evaluation Re-evalutation: Discussed this case with josie Spencer, who would like us to try and walk the pt. Pt. is unable to walk without extreme pain. Will admit for control. Discussed this with Dr. Jackson who will admit the Pt for pain control. - Vital Signs Vital signs: Temp Pulse Resp BP Pulse Ox 99.2 F 93 18 193/97 H 97 05/15/19 21:42 05/15/19 23:28 05/15/19 23:28 05/15/19 21:42 05/15/19 23:28 - Laboratory Result Diagrams: 05/15/19 16:07 05/15/19 16:07 Laboratory results interpreted by me: 05/15/19 05/15/19 16:07 16:07 WBC 11.0 H Hct 35.6 L RDW 17.1 H Plt Count 69 L Seg Neuts % (Manual) 84 H Band Neutrophils % 2 L Lymphocytes % (Manual) 6 L Abs Neuts (Manual) 9.5 H BUN 21 H Creatinine 0.38 L Glucose 112 H Direct Bilirubin 0.5 H AST 60 H Alkaline Phosphatase 142 H Creatine Kinase 173 H Discharge - Discharge Clinical Impression: Pubic ramus fracture Qualifiers: Encounter type: initial encounter Fracture type: closed Laterality: left Qualified Code(s): S32.592A - Other specified fracture of left pubis, initial encounter for closed fracture Condition: Stable Disposition: ADMITTED INPATIENT Admitting Provider: Manuel (Hospitalist) Unit Admitted: Medical Floor
[2019-05-15 16:26] LABS: HEMATOCRIT 35.6 % (36.0-47.0); HEMOGLOBIN 12.1 g/dL (12.0-15.5); MEAN CORPUSCULAR HEMOGLOBIN 31.4 pg (27.0-33.4); MEAN CORPUSCULAR HGB CONC 33.9 g/dL (32.0-36.0); MEAN CORPUSCULAR VOLUME 93 fl (80-97); RED BLOOD COUNT 3.85 10^6/uL (3.72-5.28); RED CELL DISTRIBUTION WIDTH 17.1 % (11.5-14.0)
[2019-05-15 16:44] LABS: PLATELET COUNT 69 10^3/uL (150-450)
[2019-05-15 16:46] LABS: ABSOLUTE LYMPHOCYTES# (MANUAL) 0.7 10^3/uL (0.5-4.7); ABSOLUTE MONOCYTES # (MANUAL) 0.9 10^3/uL (0.1-1.4); ANISOCYTOSIS 1+; BAND NEUTROPHILS % (MANUAL) 2 % (3-5); BASOPHILS % (MANUAL) 0 % (0-2); EOSINOPHILS % (MANUAL) 0 % (0-6); LYMPHOCYTES % (MANUAL) 6 % (13-45); MONOCYTES % (MANUAL) 8 % (3-13); PLATELET COMMENT DECREASED; POLYCHROMASIA SLIGHT; SEGMENTED NEUTROPHILS % (MAN) 84 % (42-78); TOTAL CELLS COUNTED 100
[2019-05-15 16:47] LABS: OVALOCYTES SLIGHT
[2019-05-15 16:48] LABS: ALBUMIN 3.7 g/dL (3.5-5.0); ALKALINE PHOSPHATASE 142 U/L (38-126); ANION GAP 11 (5-19); ASPARTATE AMINO TRANSFERASE 60 U/L (14-36); BILIRUBIN,DIRECT 0.5 mg/dL (0.0-0.4); BILIRUBIN,TOTAL 1.1 mg/dL (0.2-1.3); BLOOD UREA NITROGEN 21 mg/dL (7-20); CALCIUM 8.6 mg/dL (8.4-10.2); CARBON DIOXIDE 27 mmol/L (22-30); CHLORIDE 100 mmol/L (98-107); CREATINE KINASE 173 U/L (30-135); GLUCOSE 112 mg/dL (75-110); POTASSIUM 3.9 mmol/L (3.6-5.0); TOTAL PROTEIN 6.7 g/dL (6.3-8.2)
[2019-05-15 17:00] LABS: INTERNATIONAL RATION (INR) 0.97; PROTHROMBIN TIME 12.9 SEC (11.4-15.4)
[2019-05-15 17:01] LABS: PARTIAL THROMBOPLASTIN TIME 31.7 SEC (23.5-35.8)
[2019-05-15] MEDS ORDERED: NALBUPHINE HCL INJ 10 MG/1 ML AMPULE IV PRN ×2 (21:11→21:24)
[2019-05-15] MEDS ORDERED: MAGNESIUM HYDROXIDE SUSP 30 ML UDCUP PO PRN (21:11)
[2019-05-15] MEDS ORDERED: MAG HYDROX/AL HYDROX/SIMETH SUSP 30 ML UDCUP PO PRN (21:11)
[2019-05-15] MEDS ORDERED: NICOTINE 21 MG/24 HR PATCH.TD24 TD PRN (21:11)
[2019-05-15] MEDS: ONDANSETRON HCL INJ/PF 4 MG/2 ML SDV IV PRN (21:40)
[2019-05-15] MEDS: NALBUPHINE HCL INJ 10 MG/1 ML AMPULE IV PRN (21:41)
[2019-05-15] MEDS: HEPARIN SOD (PORCINE) 5,000 UNIT/ML 1 ML VIAL SUBCUT SCH (21:42)
[2019-05-15] MEDS: FAMOTIDINE 20 MG TABLET PO SCH (21:43)
[2019-05-15] MEDS: RINGERS SOLUTION,LACTATED 1,000 ML IV PRN (21:43)
[2019-05-15] MEDS: LEVALBUTEROL HCL NEB 1.25 MG/3 ML AMPUL NEB SCH (23:25)
[2019-05-15] MEDS: IPRATROPIUM BROMIDE 0.02% NEB 0.5 MG/2.5 ML AMPUL NEB SCH (23:26)
[2019-05-16] MEDS: NALBUPHINE HCL INJ 10 MG/1 ML AMPULE IV PRN ×2 (00:33→09:38)
--- NOTE | 2019-05-16 03:47 | PDOC H&P ---
History of Present Illness Admission Date/PCP: 05/15/19 18:56 DORA FORBSE MD Patient complains of: Fall History of Present Illness: RUDDY CAMPBELL is a 74 year old female who presented to the emergency room with a history of a fall which occurred sometime between last evening and when h er home health aide arrived at her house today. Patient admits that she got up from bed and became entangled in her oxygen tubing resulting in her tripping and falling to the floor just out of reach of her life alert button. She laid on the floor with pain in her left pelvis throughout the night and today until her home health aide arrived. The pain in her left pelvis area is severe and is worsened by any attempts at movement of the left hip, or any weight or pressure on the area. Pain does not radiate and is constantly present. She reports a prior similar symptoms with a right hip fracture in the past. She has not identified any other aggravating or ameliorating factors for her pelvic pain. In the emergency room she was found to have acute fractures of the left superior and inferior pubic rami. Orthopedics (Dr. Marquez) was consulted by the emergency room physician and requested the patient be admitted for pain control by the hospitalist service agreeing to see the patient in consult. Past Medical History Cardiac Medical History: Denies: Atrial Fibrillation, Coronary Artery Disease, Hypertension Pulmonary Medical History: Reports: Chronic Obstructive Pulmonary Disease (COPD) Denies: Asthma EENT Medical History: Denies: Cataracts, Ears - Hearing aids Neurological Medical History: Denies: Hemorrhagic CVA, Ischemic CVA, Seizures Endocrine Medical History: Denies: Diabetes Mellitus Type 1, Diabetes Mellitus Type 2, Hyperthyroidism, Hypothyroidism Renal/ Medical History: Denies: Chronic Kidney Disease, Nephrolithiasis Malignancy Medical History: Reports: Lung Cancer GI Medical History: Denies: Cirrhosis, Hepatitis Musculoskeltal Medical History: Denies: Arthritis, Gout Skin Medical History: Denies: Eczema, Psoriasis Psychiatric Medical History: Reports: Depression, Tobacco Dependency Denies: Alcohol Dependency, Substance Abuse Traumatic Medical History: Reports: None Hematology: Denies: Anemia, Bleeding Tendencies Infectious Medical History: Reports: None Past Surgical History Past Surgical History: Reports: Orthopedic Surgery - Right hip replacement, R shoulder surgery, Tonsillectomy, Vascular Surgery - Port-A-Cath insertion, Other - Right upper lung lobectomy Social History Information Source: Patient Lives with: Alone Smoking Status: Current Every Day Smoker Electronic Cigarette use?: No Frequency of Alcohol Use: None Hx Recreational Drug Use: No Drugs: None Hx Prescription Drug Abuse: No - Advance Directive Resuscitation Status: Full Code Surrogate healthcare decision maker:: Shira Lakisha Family History Family History: Malignancy Parental Family History Reviewed: Yes Children Family History Reviewed: No Sibling(s) Family History Reviewed.: Yes Medication/Allergy Home Medications: Dronabinol [Marinol 2.5 mg Capsule] 2.5 mg PO BID 05/15/19 Ondansetron HCl [Zofran 8 mg Tablet] 8 mg PO Q8HP PRN 05/15/19 Paroxetine HCl [Paxil] 40 mg PO QAM 05/15/19 Simethicone [Gas Relief 80] 80 mg PO DAILYP PRN 05/15/19 Sucralfate [Carafate 1 gm Tablet] 1 gm PO QID 05/15/19 Allergies/Adverse Reactions: Penicillins Allergy (Verified 08/30/17 13:58) Hives Review of Systems Constitutional: ABSENT: chills, fever(s) Eyes: ABSENT: visual disturbances, other - Eye pain Ears: ABSENT: hearing changes, other - Ear pain Nose, Mouth, and Throat: ABSENT: mouth pain, sore throat Cardiovascular: ABSENT: chest pain, palpitations Respiratory: ABSENT: cough, dyspnea Gastrointestinal: ABSENT: abdominal pain, constipation, diarrhea, nausea, vomiting Genitourinary: ABSENT: dysuria, hematuria Musculoskeletal: ABSENT: back pain, joint swelling, muscle weakness Integumentary: ABSENT: pruritus, rash Neurological: ABSENT: confusion, convulsions, focal weakness, memory loss, synco pe Psychiatric: ABSENT: anxiety, depression Endocrine: ABSENT: cold intolerance, heat intolerance Hematologic/Lymphatic: ABSENT: easy bleeding, easy bruising Allergic/Immunologic: ABSENT: seasonal rhinorrhea Physical Exam Vital Signs: Temp Pulse Resp BP Pulse Ox 24 H 165/92 H 98 05/15/19 20:01 05/15/19 20:01 05/15/19 20:01 Intake & Output 05/13/19 05/14/19 05/15/19 23:59 23:59 23:59 Weight 38.555 kg General appearance: PRESENT: no acute distress, cooperative Head exam: PRESENT: atraumatic, normocephalic Eye exam: PRESENT: conjunctiva pink. ABSENT: conjunctival injection, scleral icterus Ear exam: PRESENT: normal external ear exam. ABSENT: bleeding, drainage Mouth exam: PRESENT: dry mucosa, neck supple Neck exam: ABSENT: thyromegaly, tracheal deviation Respiratory exam: PRESENT: prolonged expiratory phas - Mildly prolonged expiratory phase noted, symmetrical, unlabored, wheezes - Mild expiratory wheez es present Cardiovascular exam: PRESENT: RRR. ABSENT: clicks, gallop, rubs Pulses: PRESENT: normal radial pulses, normal dorsalis pedis pul Vascular exam: PRESENT: normal capillary refill. ABSENT: pallor GI/Abdominal exam: PRESENT: normal bowel sounds, soft Rectal exam: PRESENT: deferred Extremities exam: ABSENT: joint swelling, pedal edema Musculoskeletal exam: PRESENT: tenderness - Tenderness on palpation of the left pelvis.. ABSENT: deformity, dislocation Neurological exam: PRESENT: alert, oriented to person, oriented to place, oriented to time, oriented to situation, CN II-XII grossly intact. ABSENT: motor sensory deficit Psychiatric exam: PRESENT: appropriate affect, normal mood Skin exam: PRESENT: dry, intact, warm. ABSENT: jaundice, rash, urticaria Results Laboratory Results: 05/15/19 16:07 05/15/19 16:07 05/15/19 05/15/19 16:07 16:07 WBC 11.0 H RBC 3.85 Hgb 12.1 Hct 35.6 L MCV 93 MCH 31.4 MCHC 33.9 RDW 17.1 H Plt Count 69 L Seg Neutrophils % Not Reportable Sodium 137.7 Potassium 3.9 Chloride 100 Carbon Dioxide 27 Anion Gap 11 BUN 21 H Creatinine 0.38 L Est GFR ( Amer) > 60 Glucose 112 H Calcium 8.6 Total Bilirubin 1.1 AST 60 H Alkaline Phosphatase 142 H Total Protein 6.7 Albumin 3.7 05/15/19 16:07 Creatine Kinase 173 H Impressions: Cervical Spine CT 05/15/19 00:00 IMPRESSION: No fracture or static subluxation of the cervical spine. Head CT 05/15/19 00:00 IMPRESSION: No acute intracranial pathology. Small vessel white matter disease. EVIDENCE OF ACUTE STROKE: NO. Pelvis X-Ray 05/15/19 00:00 IMPRESSION: Fractures of the left superior and inferior pubic ramus. Assessment and Plan - Diagnosis (1) Pubic ramus fracture Qualifiers: Encounter type: initial encounter Fracture type: closed Laterality: left Qualified Code(s): S32.592A - Other specified fracture of left pubis, initial encounter for closed fracture Is this a current diagnosis for this admission?: Yes (2) Tobacco use disorder, severe, dependence Is this a current diagnosis for this admission?: Yes (3) COPD (chronic obstructive pulmonary disease) Qualifiers: COPD type: unspecified COPD Qualified Code(s): J44.9 - Chronic obstructive pulmonary disease, unspecified Is this a current diagnosis for this admission?: Yes (4) Personal history of malignant neoplasm of lung Is this a current diagnosis for this admission?: Yes - Plan Summary Summary: Patient will be admitted and treated with routine supportive and symptomatic cares. She will be given IV fluids initially and her pain will be treated with Nubain 3 to 5 mg IV every 3 hours as needed using a sliding pain scale. Her usual medications and oxygen will be continued as at home for ongoing treatment of her COPD. A nicotine replacement patch is available for the patient's use, i f desired. Smoking cessation has been advised and counseled briefly at the bedside. Dr. Marquez will be consulted for orthopedic care and management. inpatient services director will be consulted as patient may require [facility] facility placement post hospitalization. Physical therapy, occupational therapy and speech therapy will be consulted in anticipation of possible nursing facility placement. - Time Time Spent with patient: 25-34 minutes Smoking Cessation Education: 3 to 10 minutes Medications reviewed and adjusted accordingly: Yes Anticipated discharge: SNF - Inpatient Certification Based on my medical assessment, after consideration of the patient's comorbidities, presenting symptoms, or acuity I expect that the services needed warrant INPATIENT care.: Yes I certify that my determination is in accordance with my understanding of Medicare's requirements for reasonable and necessary INPATIENT services [42 CFR 412.3e].: Yes Medical Necessity: Need for Pain Control, Risk of Complication if Not Cared For in Hospital
[2019-05-16] MEDS ORDERED: INFLUENZA QUAD (6MOS+) 2019-20 VAC 0.5 ML SYR IM ONE (04:02)
[2019-05-16] MEDS: RINGERS SOLUTION,LACTATED 1,000 ML IV PRN ×2 (04:22→13:32)
[2019-05-16] MEDS: HEPARIN SOD (PORCINE) 5,000 UNIT/ML 1 ML VIAL SUBCUT SCH ×3 (06:04→22:02)
[2019-05-16] MEDS: LEVALBUTEROL HCL NEB 1.25 MG/3 ML AMPUL NEB SCH ×3 (07:47→20:06)
[2019-05-16] MEDS: BUDESONIDE NEB 0.5 MG/2 ML AMPUL NEB SCH ×2 (07:47→20:06)
[2019-05-16] MEDS: IPRATROPIUM BROMIDE 0.02% NEB 0.5 MG/2.5 ML AMPUL NEB SCH ×2 (07:47→20:06)
[2019-05-16 07:56] LABS: HEMATOCRIT 33.8 % (36.0-47.0); HEMOGLOBIN 11.4 g/dL (12.0-15.5); MEAN CORPUSCULAR HEMOGLOBIN 31.4 pg (27.0-33.4); MEAN CORPUSCULAR HGB CONC 33.6 g/dL (32.0-36.0); MEAN CORPUSCULAR VOLUME 94 fl (80-97); RED BLOOD COUNT 3.62 10^6/uL (3.72-5.28); RED CELL DISTRIBUTION WIDTH 17.4 % (11.5-14.0); WHITE BLOOD COUNT 12.5 10^3/uL (4.0-10.5)
[2019-05-16 08:12] LABS: ANION GAP 6 (5-19); BLOOD UREA NITROGEN 15 mg/dL (7-20); CALCIUM 8.4 mg/dL (8.4-10.2); CARBON DIOXIDE 33 mmol/L (22-30); CHLORIDE 97 mmol/L (98-107); CREATINE KINASE 88 U/L (30-135); GLUCOSE 116 mg/dL (75-110); POTASSIUM 3.8 mmol/L (3.6-5.0)
[2019-05-16 08:20] LABS: PLATELET COUNT 73 10^3/uL (150-450)
[2019-05-16] MEDS: FAMOTIDINE 20 MG TABLET PO SCH ×2 (09:37→21:59)
[2019-05-16] MEDS: DOCUSATE SODIUM 100 MG CAPSULE PO SCH ×3 (09:37→17:49)
--- NOTE | 2019-05-16 09:51 | PDOC CONSULTATION ---
Consultation Consult Date: 05/16/19 Provider Consulted: CLAU BURKS Consult reason:: Left superior and inferior pubic ramus fractures History of Present Illness Admission Date/PCP: 05/15/19 18:56 DORA FORBES MD Patient complains of: Left hip pain History of Present Illness: RUDDY CAMPBELL is a 74 year old female who sustained a fall at home several days ago. She was found by her home health aide. She presented to the emergency department at [facility] complaining of left hip pain and the inability to ambulate. Radiographic examination demonstrated fractures of the left superior and inferior pubic rami. Past Medical History Cardiac Medical History: Denies: Atrial Fibrillation, Coronary Artery Disease, Hypertension Pulmonary Medical History: Reports: Chronic Obstructive Pulmonary Disease (COPD) Denies: Asthma EENT Medical History: Denies: Cataracts, Ears - Hearing aids Neurological Medical History: Denies: Hemorrhagic CVA, Ischemic CVA, Seizures Endocrine Medical History: Denies: Diabetes Mellitus Type 1, Diabetes Mellitus Type 2, Hyperthyroidism, Hypothyroidism Renal/ Medical History: Denies: Chronic Kidney Disease, Nephrolithiasis Malignancy Medical History: Reports: Lung Cancer GI Medical History: Denies: Cirrhosis, Hepatitis Musculoskeltal Medical History: Denies: Arthritis, Gout Skin Medical History: Denies: Eczema, Psoriasis Psychiatric Medical History: Reports: Depression, Tobacco Dependency Denies: Alcohol Dependency, Substance Abuse Traumatic Medical History: Reports: None Hematology: Denies: Anemia, Bleeding Tendencies Infectious Medical History: Reports: None Past Surgical History Past Surgical History: Reports: Orthopedic Surgery - Right hip hemiarthroplasty replacement, R shoulder surgery, Tonsillectomy, Vascular Surgery - Port-A-Cath insertion, Other - Right upper lung lobectomy Social History Lives with: Alone Smoking Status: Current Every Day Smoker Electronic Cigarette use?: No Frequency of Alcohol Use: None Hx Recreational Drug Use: No Drugs: None Hx Prescription Drug Abuse: No - Advance Directive Resuscitation Status: Full Code Family History Family History: Malignancy Parental Family History Reviewed: Yes Children Family History Reviewed: No Sibling(s) Family History Reviewed.: Yes Medication/Allergy Home Medications: Dronabinol [Marinol 2.5 mg Capsule] 2.5 mg PO BID 05/15/19 Ondansetron HCl [Zofran 8 mg Tablet] 8 mg PO Q8HP PRN 05/15/19 Paroxetine HCl [Paxil] 40 mg PO QAM 05/15/19 Simethicone [Gas Relief 80] 80 mg PO DAILYP PRN 05/15/19 Sucralfate [Carafate 1 gm Tablet] 1 gm PO QID 05/15/19 Allergies/Adverse Reactions: Penicillins Allergy (Verified 08/30/17 13:58) Hives Review of Systems Respiratory: PRESENT: cough Musculoskeletal: PRESENT: as per HPI Psychiatric: PRESENT: depression Physical Exam Vital Signs: Temp Pulse Resp BP Pulse Ox 98.1 F 99 18 162/70 H 92 05/16/19 01:13 05/16/19 07:47 05/16/19 07:47 05/16/19 01:13 05/16/19 07:47 Intake & Output 05/15/19 05/16/19 05/17/19 06:59 06:59 06:59 Intake Total 1181 Balance 1181 Weight 38.55 kg General appearance: PRESENT: no acute distress, cooperative, thin Head exam: PRESENT: atraumatic Eye exam: PRESENT: EOMI, PERRLA Mouth exam: PRESENT: moist, tongue midline Neck exam: ABSENT: carotid bruit, JVD, lymphadenopathy, thyromegaly Respiratory exam: PRESENT: prolonged expiratory phas Cardiovascular exam: PRESENT: RRR. ABSENT: diastolic murmur, rubs, systolic murmur GI/Abdominal exam: PRESENT: normal bowel sounds, soft. ABSENT: distended, guarding, mass, organolmegaly, rebound, tenderness Rectal exam: PRESENT: deferred Musculoskeletal exam: PRESENT: other - There is a painless range of motion of the right hip. There is no discomfort with internal or external rotation of the left hip. There is discomfort with palpation of the left pubic region over the pubic rami. The patient is able to dorsiflex and plantarflex both feet. Sensation is intact to touch. Neurological exam: PRESENT: alert, awake, oriented to person, oriented to place, oriented to time, oriented to situation, CN II-XII grossly intact. ABSENT: motor sensory deficit Results Laboratory Results: 05/16/19 06:25 05/16/19 06:25 05/15/19 05/15/19 05/16/19 16:07 16:07 06:25 WBC 11.0 H 12.5 H RBC 3.85 3.62 L Hgb 12.1 11.4 L Hct 35.6 L 33.8 L MCV 93 94 MCH 31.4 31.4 MCHC 33.9 33.6 RDW 17.1 H 17.4 H Plt Count 69 L 73 L Seg Neutrophils % Not Reportable Sodium 137.7 Potassium 3.9 Chloride 100 Carbon Dioxide 27 Anion Gap 11 BUN 21 H Creatinine 0.38 L Est GFR ( Amer) > 60 Glucose 112 H Calcium 8.6 Magnesium Total Bilirubin 1.1 AST 60 H Alkaline Phosphatase 142 H Total Protein 6.7 Albumin 3.7 TSH 05/16/19 05/16/19 06:25 06:25 WBC RBC Hgb Hct MCV MCH MCHC RDW Plt Count Seg Neutrophils % Sodium 136.2 L Potassium 3.8 Chloride 97 L Carbon Dioxide 33 H Anion Gap 6 BUN 15 Creatinine 0.45 L Est GFR ( Amer) > 60 Glucose 116 H Calcium 8.4 Magnesium 1.7 Total Bilirubin AST Alkaline Phosphatase Total Protein Albumin TSH 0.74 05/15/19 05/16/19 16:07 06:25 Creatine Kinase 173 H 88 Impressions: Cervical Spine CT 05/15/19 00:00 IMPRESSION: No fracture or static subluxation of the cervical spine. Head CT 05/15/19 00:00 IMPRESSION: No acute intracranial pathology. Small vessel white matter disease. EVIDENCE OF ACUTE STROKE: NO. Pelvis X-Ray 05/15/19 00:00 IMPRESSION: Fractures of the left superior and inferior pubic ramus. Assessment & Plan - Diagnosis (1) Pubic ramus fracture Qualifiers: Encounter type: initial encounter Fracture type: closed Laterality: left Qualified Code(s): S32.592A - Other specified fracture of left pubis, initial encounter for closed fracture Is this a current diagnosis for this admission?: Yes - Time Time Spent: 30 to 50 Minutes Anticipated discharge: SNF - Plan Summary Plan Summary: Radiographs and clinical examination are consistent with superior and inferior pubic ramus fractures of the left hemipelvis. I have recommended mobilization as tolerated. The patient may weight-bear as tolerated with assist device. I have discussed these recommendations with the patient who understands. She may follow-up in 6 weeks with repeat radiographs. Please reconsult with additional questions or problems as needed.
[2019-05-16] MEDS ORDERED: ONDANSETRON HCL 8 MG TABLET PO PRN (10:15)
[2019-05-16] MEDS ORDERED: SIMETHICONE 80 MG TAB.CHEW PO PRN (10:15)
[2019-05-16] MEDS: ACETAMINOPHEN 325 MG TABLET PO PRN (13:35)
--- NOTE | 2019-05-16 13:35 | PDOC PROGRESS REPORT ---
Subjective Progress Note for:: 05/16/19 Subjective:: 74-year-old female past medical history of stage IV lung cancer, initially diagnosed in 2012, on chemotherapy, followed by oncologist outpatient, current smoker, severe COPD, tachycardia, brought to ED for evaluation after a fall. Patient sustained a fall after became entangled in her oxygen tubing was found on the floor by home health aide, was brought to ED where she was found to have an acute left superior and inferior rami fractures. 05/16/2019. Patient complaining of constant pelvic pain, 5/5, nonradiating, worsened with movement. Orthopedic surgery consulted however they are recommending nonsurgical management. Patient denies any fever, chills, nausea, vomiting, diarrhea, constipation or any urinary symptoms. Reason For Visit: PELVIC FRACTURE Physical Exam Vital Signs: Temp Pulse Resp BP Pulse Ox 98.1 F 99 18 162/70 H 92 05/16/19 01:13 05/16/19 07:47 05/16/19 07:47 05/16/19 01:13 05/16/19 07:47 Intake & Output 05/15/19 05/16/19 05/17/19 06:59 06:59 06:59 Intake Total 1181 Balance 1181 Weight 38.55 kg General appearance: PRESENT: mild distress, thin Head exam: PRESENT: atraumatic, normocephalic Respiratory exam: PRESENT: clear to auscultation marilyn. ABSENT: rales, rhonchi, wheezes Cardiovascular exam: PRESENT: RRR. ABSENT: diastolic murmur, rubs, systolic murmur GI/Abdominal exam: PRESENT: normal bowel sounds, soft. ABSENT: distended, guarding, mass, organolmegaly, rebound, tenderness Extremities exam: PRESENT: full ROM, tenderness - Right hip TTP.. ABSENT: calf tenderness, clubbing, pedal edema Neurological exam: PRESENT: alert - Neurovascularly intact., awake, oriented to person, oriented to place, oriented to time, oriented to situation, CN II-XII grossly intact Results Laboratory Results: 05/16/19 06:25 05/16/19 06:25 05/15/19 05/15/19 05/16/19 16:07 16:07 06:25 WBC 11.0 H 12.5 H RBC 3.85 3.62 L Hgb 12.1 11.4 L Hct 35.6 L 33.8 L MCV 93 94 MCH 31.4 31.4 MCHC 33.9 33.6 RDW 17.1 H 17.4 H Plt Count 69 L 73 L Seg Neutrophils % Not Reportable Sodium 137.7 Potassium 3.9 Chloride 100 Carbon Dioxide 27 Anion Gap 11 BUN 21 H Creatinine 0.38 L Est GFR ( Amer) > 60 Glucose 112 H Calcium 8.6 Magnesium Total Bilirubin 1.1 AST 60 H Alkaline Phosphatase 142 H Total Protein 6.7 Albumin 3.7 TSH 05/16/19 05/16/19 06:25 06:25 WBC RBC Hgb Hct MCV MCH MCHC RDW Plt Count Seg Neutrophils % Sodium 136.2 L Potassium 3.8 Chloride 97 L Carbon Dioxide 33 H Anion Gap 6 BUN 15 Creatinine 0.45 L Est GFR ( Amer) > 60 Glucose 116 H Calcium 8.4 Magnesium 1.7 Total Bilirubin AST Alkaline Phosphatase Total Protein Albumin TSH 0.74 05/15/19 05/16/19 16:07 06:25 Creatine Kinase 173 H 88 Impressions: Cervical Spine CT 05/15/19 00:00 IMPRESSION: No fracture or static subluxation of the cervical spine. Head CT 05/15/19 00:00 IMPRESSION: No acute intracranial pathology. Small vessel white matter disease. EVIDENCE OF ACUTE STROKE: NO. Pelvis X-Ray 05/15/19 00:00 IMPRESSION: Fractures of the left superior and inferior pubic ramus. Assessment and Plan - Diagnosis (1) Pubic ramus fracture Qualifiers: Encounter type: initial encounter Fracture type: closed Laterality: left Qualified Code(s): S32.592A - Other specified fracture of left pubis, initial encounter for closed fracture Is this a current diagnosis for this admission?: Yes Plan: Due to mechanical fall. Orthopedic surgery consulted. No surgical intervention planned. Recommendations mobilization and weightbearing as tolerated. Supportive measures. Follow-up as outpatient in 6 weeks with radiographs. (2) Depression Qualifiers: Depression Type: major depressive disorder Is this a current diagnosis for this admission?: Yes Plan: Denies any homicidal suicidal ideation. Restart home meds. (3) Tobacco use disorder, severe, dependence Is this a current diagnosis for this admission?: Yes Plan: Counseled on quitting. NicoDerm patch provided. (4) COPD (chronic obstructive pulmonary disease) Qualifiers: COPD type: unspecified COPD Qualified Code(s): J44.9 - Chronic obstructive pulmonary disease, unspecified Is this a current diagnosis for this admission?: Yes Plan: Not on home O2. Unfortunately still smoking. We will start on duo nebs, IV steroids, pulmonary toileting, supplemental oxygen, ICS, LMA, LABA. (5) Cachexia Is this a current diagnosis for this admission?: Yes (6) Lung malignancy Is this a current diagnosis for this admission?: Yes Plan: Stage IV lung cancer. Has established oncology follow-up as outpatient Outpatient oncology follow-up. - Plan Summary Summary: Patient will be admitted and treated with routine supportive and symptomatic cares. She will be given IV fluids initially and her pain will be treated with Nubain 3 to 5 mg IV every 3 hours as needed using a sliding pain scale. Her usual medications and oxygen will be continued as at home for ongoing treatment of her COPD. A nicotine replacement patch is available for the patient's use, if desired. Smoking cessation has been advised and counseled briefly at the bedside. Dr. Marquez will be consulted for orthopedic care and management. information services consultant will be consulted as patient may require group home facility placement post hospitalization. Physical therapy, occupational therapy and speech therapy will be consulted in anticipation of possible nursing facility placement.
[2019-05-16] MEDS ORDERED: MORPHINE SULFATE SR 15 MG TABLET PO ONE (14:00)
[2019-05-16] MEDS: METHYLPREDNISOLONE INJ 40 MG/1 ML SDV IV SCH ×2 (14:16→21:59)
[2019-05-16] MEDS: CEFTRIAXONE 1 GM/D5W RTU 1 GM/50 ML RTUPB IV SCH (14:25)
[2019-05-16] MEDS: OXYCODONE-ACETAMINOPHEN 5-325 MG TABLET PO PRN ×2 (16:17→20:40)
--- NOTE | 2019-05-16 17:19 | RADIOLOGY REPORT (SQ) ---
EXAM DESCRIPTION: CTA CHEST COMPLETED DATE/TIME: 05/16/2019 3:58 pm REASON FOR STUDY: SOB hx of lung malignancy, r/o PE COMPARISON: 01/28/2019 TECHNIQUE: CT scan of the chest performed using helical scanning technique with dynamic intravenous contrast injection. Images reviewed with lung, soft tissue and bone windows. Reconstructed coronal and sagittal MPR images reviewed. Additional 3 dimensional post-processing performed to develop Maximal Intensity Projection images (GA P). All images stored on PACS. All CT scanners at this facility use dose modulation, iterative reconstruction, and/or weight based d osing when appropriate to reduce radiation dose to as low as reasonably achievable (ALARA). [facility]: Dose Right [facility]: CareDose [facility]: Dose Right [facility]: Teradose 4D [facility]: Smart G2 Crowd CONTRAST TYPE AND DOSE: contrast/concentration: Isovue 350.00 mg/ml; Total Contrast Delivered: 36.0 ml; Total Saline Delivered: 66.0 ml Contrast bolus not adequate for evaluation of the pulmonary arteries. RENAL FUNCTION: GFR > 60. RADIATION DOSE: CT Rad equipment meets quality standard of care and radiation dose reduction techniq ues were employed. CTDIvol: 1.9 - 13.2 mGy. DLP: 144 mGy-cm. . LIMITATIONS: None. FINDINGS: LUNGS AND PLEURA: Slightly increased airspace disease in the superior segment left lower l obe. Otherwise similar parenchymal masses - nodular distortion bilaterally and right apical extraple ural gas -postsurgical changes. AORTA AND GREAT VESSELS: Stable. HEART: No pericardial effusion. No significant coronary artery calcifications. PULMONARY ARTERIES: Contrast bolus not adequate for evaluation of the pulmonary arteries. HILAR AND MEDIASTINAL STRUCTURES: Similar abnormal nodes. HARDWARE: Right chest port. UPPER ABDOMEN: No acute findings. Limited exam. THYROID AND OTHER SOFT TISSUES: No masses. No adenopathy. BONES: No acute finding. 3D MIPS: Confirm above findings. OTHER: No other significant finding. IMPRESSION: Contrast bolus not adequate for evaluation of the pulmonary arteries. Slightly increased airspace disease in the superior segment left lower lobe. Otherwise similar paren chymal masses - nodular distortion bilaterally and right apical extrapleural gas -postsurgical change s. COMMENT: Quality ID # [id number]: Final reports with documentation of one or more dose reduction techniques (e.g., Automated exposure control, adjustment of the mA and/or kV according to patient size, use of iterative reconstruction technique) TECHNICAL DOCUMENTATION: JOB ID: [id number] [place]-72 2010 [employer] All Rights Reserved Reading location - IP/workstation name: [email or web address]
[2019-05-16] MEDS: DRONABINOL 2.5 MG CAPSULE PO SCH (17:47)
[2019-05-16] MEDS: ONDANSETRON HCL INJ/PF 4 MG/2 ML SDV IV PRN (21:59)
[2019-05-16] MEDS: MORPHINE SULFATE SR 15 MG TABLET PO SCH (22:01)
[2019-05-17] MEDS: LEVALBUTEROL HCL NEB 1.25 MG/3 ML AMPUL NEB SCH ×4 (02:22→20:01)
[2019-05-17] MEDS: IPRATROPIUM BROMIDE 0.02% NEB 0.5 MG/2.5 ML AMPUL NEB SCH ×4 (02:22→20:01)
[2019-05-17] MEDS: HEPARIN SOD (PORCINE) 5,000 UNIT/ML 1 ML VIAL SUBCUT SCH ×3 (05:00→22:02)
[2019-05-17] MEDS: METHYLPREDNISOLONE INJ 40 MG/1 ML SDV IV SCH ×3 (05:09→22:03)
[2019-05-17] MEDS: OXYCODONE-ACETAMINOPHEN 5-325 MG TABLET PO PRN ×2 (05:12→13:56)
[2019-05-17 06:10] LABS: HEMATOCRIT 32.5 % (36.0-47.0); HEMOGLOBIN 10.9 g/dL (12.0-15.5); MEAN CORPUSCULAR HEMOGLOBIN 31.3 pg (27.0-33.4); MEAN CORPUSCULAR HGB CONC 33.6 g/dL (32.0-36.0); MEAN CORPUSCULAR VOLUME 93 fl (80-97); RED BLOOD COUNT 3.48 10^6/uL (3.72-5.28); RED CELL DISTRIBUTION WIDTH 17.1 % (11.5-14.0); WHITE BLOOD COUNT 18.8 10^3/uL (4.0-10.5)
[2019-05-17 06:12] LABS: PLATELET COUNT 78 10^3/uL (150-450)
[2019-05-17] MEDS: BUDESONIDE NEB 0.5 MG/2 ML AMPUL NEB SCH ×2 (07:52→20:01)
[2019-05-17] MEDS: MORPHINE SULFATE SR 15 MG TABLET PO SCH ×2 (09:34→22:02)
[2019-05-17] MEDS: CEFTRIAXONE 1 GM/D5W RTU 1 GM/50 ML RTUPB IV SCH (09:34)
[2019-05-17] MEDS: DOCUSATE SODIUM 100 MG CAPSULE PO SCH ×2 (09:34→17:09)
[2019-05-17] MEDS: DRONABINOL 2.5 MG CAPSULE PO SCH ×2 (09:34→17:09)
[2019-05-17] MEDS: PAROXETINE HCL 20 MG TABLET PO SCH (09:35)
[2019-05-17] MEDS: FAMOTIDINE 20 MG TABLET PO SCH ×2 (09:35→21:54)
[2019-05-17] MEDS ORDERED: LORAZEPAM INJ 2 MG/1 ML VIAL IV PRN (11:45)
--- NOTE | 2019-05-17 11:45 | PDOC PROGRESS REPORT ---
Subjective Progress Note for:: 05/17/19 Subjective:: 74-year-old female past medical history of stage IV lung cancer, initially diagnosed in 2012, on chemotherapy, followed by oncologist outpatient, current smoker, severe COPD, tachycardia, brought to ED for evaluation after a fall. Patient sustained a fall after became entangled in her oxygen tubing was found on the floor by home health aide, was brought to ED where she was found to have an acute left superior and inferior rami fractures. 05/16/2019. Patient complaining of constant pelvic pain, 5/5, nonradiating, worsened with movement. Orthopedic surgery consulted however they are recommending nonsurgical management. Patient denies any fever, chills, nausea, vomiting, diarrhea, constipation or any urinary symptoms. 05/17/2019. Still complaining constant pelvic pain however improving since yesterday, more awake and communicative today, does not seem to be in any apparent distress, denies any fever, chills, nausea, vomiting, diarrhea, constipation or any urinary symptoms. Reason For Visit: PELVIC FRACTURE Physical Exam Vital Signs: Temp Pulse Resp BP Pulse Ox 98.0 F 84 18 146/64 H 94 05/17/19 07:00 05/17/19 07:52 05/17/19 07:52 05/17/19 07:00 05/17/19 07:52 Intake & Output 05/16/19 05/17/19 05/18/19 06:59 06:59 05:59 Intake Total 1181 2285 Output Total 1825 Balance 1181 460 Weight 38.55 kg 40.1 kg General appearance: PRESENT: no acute distress, thin Respiratory exam: PRESENT: clear to auscultation marilyn. ABSENT: rales, rhonchi, wheezes Cardiovascular exam: PRESENT: RRR. ABSENT: diastolic murmur, rubs, systolic murmur GI/Abdominal exam: PRESENT: normal bowel sounds, soft. ABSENT: distended, guarding, mass, organolmegaly, rebound, tenderness Musculoskeletal exam: PRESENT: tenderness - Tenderness over left hip and left hip. Neurovascularly intact. Results Laboratory Results: 05/17/19 05:26 05/16/19 06:25 05/17/19 05:26 WBC 18.8 H RBC 3.48 L Hgb 10.9 L Hct 32.5 L MCV 93 MCH 31.3 MCHC 33.6 RDW 17.1 H Plt Count 78 L 05/15/19 05/16/19 16:07 06:25 Creatine Kinase 173 H 88 Impressions: Cervical Spine CT 05/15/19 00:00 IMPRESSION: No fracture or static subluxation of the cervical spine. Head CT 05/15/19 00:00 IMPRESSION: No acute intracranial pathology. Small vessel white matter disease. EVIDENCE OF ACUTE STROKE: NO. Pelvis X-Ray 05/15/19 00:00 IMPRESSION: Fractures of the left superior and inferior pubic ramus. Chest/Abdomen CTA 05/16/19 00:00 IMPRESSION: Contrast bolus not adequate for evaluation of the pulmonary arteries. Slightly increased airspace disease in the superior segment left lower lobe. Otherwise similar parenchymal masses - nodular distortion bilaterally and right apical extrapleural gas -postsurgical changes. Assessment and Plan - Diagnosis (1) Pubic ramus fracture Qualifiers: Encounter type: initial encounter Fracture type: closed Laterality: left Qualified Code(s): S32.592A - Other specified fracture of left pubis, initial encounter for closed fracture Is this a current diagnosis for this admission?: Yes Plan: Due to mechanical fall. Orthopedic surgery consulted. No surgical intervention planned. Recommendations mobilization and weightbearing as tolerated. Supportive measures. Follow-up as outpatient in 6 weeks with radiographs. (2) Depression Qualifiers: Depression Type: major depressive disorder Is this a current diagnosis for this admission?: Yes Plan: Denies any homicidal suicidal ideation. Restart home meds. (3) Tobacco use disorder, severe, dependence Is this a current diagnosis for this admission?: Yes Plan: Counseled on quitting. NicoDerm patch provided. (4) COPD (chronic obstructive pulmonary disease) Qualifiers: COPD type: unspecified COPD Qualified Code(s): J44.9 - Chronic obstructive pulmonary disease, unspecified Is this a current diagnosis for this admission?: Yes Plan: Improving. SPO2 WNL on 2 L. Not on home O2. Unfortunately still smoking. CTA limited to rule out PE otherwise unchanged from previous studies. Continue duo nebs, IV steroids, empiric IV antibiotics, pulmonary toileting, supplemental oxygen, ICS, LMA, LABA. (5) Cachexia Is this a current diagnosis for this admission?: Yes Plan: Consulted dietitian. Pending recommendations. (6) Lung malignancy Is this a current diagnosis for this admission?: Yes Plan: Stage IV lung cancer. Has established oncology follow-up as outpatient As per patient she is not getting any chemotherapy anymore. Palliative care consulted. Outpatient oncology follow-up. - Plan Summary Summary: Patient will be admitted and treated with routine supportive and symptomatic cares. She will be given IV fluids initially and her pain will be treated with Nubain 3 to 5 mg IV every 3 hours as needed using a sliding pain scale. Her usual medications and oxygen will be continued as at home for ongoing treatment of her COPD. A nicotine replacement patch is available for the patient's use, if desired. Smoking cessation has been advised and counseled briefly at the bedside. Dr. Marquez will be consulted for orthopedic care and management. sales representative facility services will be consulted as patient may require senior care fac ility placement post hospitalization. Physical therapy, occupational therapy and speech therapy will be consulted in anticipation of possible nursing facility placement.
[2019-05-18] MEDS: LEVALBUTEROL HCL NEB 1.25 MG/3 ML AMPUL NEB SCH ×4 (02:15→19:56)
[2019-05-18] MEDS: IPRATROPIUM BROMIDE 0.02% NEB 0.5 MG/2.5 ML AMPUL NEB SCH ×4 (02:15→19:56)
[2019-05-18] MEDS: HEPARIN SOD (PORCINE) 5,000 UNIT/ML 1 ML VIAL SUBCUT SCH ×3 (05:38→21:02)
[2019-05-18] MEDS: METHYLPREDNISOLONE INJ 40 MG/1 ML SDV IV SCH ×3 (05:50→21:01)
[2019-05-18 06:20] LABS: HEMATOCRIT 30.1 % (36.0-47.0); HEMOGLOBIN 10.1 g/dL (12.0-15.5); MEAN CORPUSCULAR HEMOGLOBIN 31.2 pg (27.0-33.4); MEAN CORPUSCULAR HGB CONC 33.7 g/dL (32.0-36.0); MEAN CORPUSCULAR VOLUME 93 fl (80-97); RED BLOOD COUNT 3.25 10^6/uL (3.72-5.28); WHITE BLOOD COUNT 16.3 10^3/uL (4.0-10.5)
[2019-05-18 06:38] LABS: ALBUMIN 2.8 g/dL (3.5-5.0); ALKALINE PHOSPHATASE 64 U/L (38-126); ASPARTATE AMINO TRANSFERASE 36 U/L (14-36); BILIRUBIN,DIRECT 0.1 mg/dL (0.0-0.4); BILIRUBIN,TOTAL 0.4 mg/dL (0.2-1.3); BLOOD UREA NITROGEN 13 mg/dL (7-20); CALCIUM 8.3 mg/dL (8.4-10.2); CARBON DIOXIDE 36 mmol/L (22-30); CHLORIDE 95 mmol/L (98-107); GLUCOSE 133 mg/dL (75-110); TOTAL PROTEIN 5.4 g/dL (6.3-8.2)
[2019-05-18 06:49] LABS: ANION GAP 3 (5-19)
[2019-05-18] MEDS: BUDESONIDE NEB 0.5 MG/2 ML AMPUL NEB SCH ×2 (07:43→19:56)
[2019-05-18 08:07] LABS: PLATELET COUNT 87 10^3/uL (150-450)
[2019-05-18] MEDS: CEFTRIAXONE 1 GM/D5W RTU 1 GM/50 ML RTUPB IV SCH (09:56)
[2019-05-18] MEDS: DRONABINOL 2.5 MG CAPSULE PO SCH ×2 (09:57→17:45)
[2019-05-18] MEDS: PAROXETINE HCL 20 MG TABLET PO SCH (09:57)
[2019-05-18] MEDS: DOCUSATE SODIUM 100 MG CAPSULE PO SCH ×2 (09:57→17:42)
[2019-05-18] MEDS: MORPHINE SULFATE SR 15 MG TABLET PO SCH ×2 (09:57→21:01)
[2019-05-18] MEDS: FAMOTIDINE 20 MG TABLET PO SCH ×2 (09:57→21:00)
[2019-05-18] MEDS ORDERED: GUAIFENESIN/CODEINE PHOS 100-10 MG/ 5 ML UDC PO SCH (10:00)
--- NOTE | 2019-05-18 11:07 | PDOC PROGRESS REPORT ---
Subjective Progress Note for:: 05/18/19 Subjective:: 74-year-old female past medical history of stage IV lung cancer, initially diagnosed in 2012, on chemotherapy, followed by oncologist outpatient, current smoker, severe COPD, tachycardia, brought to ED for evaluation after a fall. Patient sustained a fall after became entangled in her oxygen tubing was found on the floor by home health aide, was brought to ED where she was found to have an acute left superior and inferior rami fractures. 05/16/2019. Patient complaining of constant pelvic pain, 5/5, nonradiating, worsened with movement. Orthopedic surgery consulted however they are recommending nonsurgical management. Patient denies any fever, chills, nausea, vomiting, diarrhea, constipation or any urinary symptoms. 05/17/2019. Still complaining constant pelvic pain however improving since yesterday, more awake and communicative today, does not seem to be in any apparent distress, denies any fever, chills, nausea, vomiting, diarrhea, constipation or any urinary symptoms. 05/18/2019. Moderate improvement of her hip pain compared to yesterday, does not look in any acute distress, awake and alert x3, in no apparent distress, denies any fever, chills, nausea, vomiting, diarrhea, constipation or any urinary symptoms. Patient would like to go to inpatient rehab after discharge, I have informed her that I will try and see if he will qualify for that, I have informed her that I have consulted palliative care and she is willing to discuss her care with them. Reason For Visit: PELVIC FRACTURE Physical Exam Vital Signs: Temp Pulse Resp BP Pulse Ox 98.3 F 92 19 137/64 H 95 05/18/19 08:42 05/18/19 08:42 05/18/19 08:42 05/18/19 08:42 05/18/19 08:42 Intake & Output 05/17/19 05/18/19 05/19/19 07:59 06:59 06:59 Intake Total Output Total Balance Weight General appearance: PRESENT: no acute distress, well-developed, well-nourished Respiratory exam: PRESENT: clear to auscultation marilyn. ABSENT: rales, rhonchi, wheezes Cardiovascular exam: PRESENT: RRR. ABSENT: diastolic murmur, rubs, systolic murmur GI/Abdominal exam: PRESENT: normal bowel sounds, soft. ABSENT: distended, guarding, mass, organolmegaly, rebound, tenderness Neurological exam: PRESENT: alert, awake, oriented to person, oriented to place, oriented to time, oriented to situation, CN II-XII grossly intact. ABSENT: motor sensory deficit Results Laboratory Results: 05/18/19 05:51 05/18/19 05:51 05/18/19 05/18/19 05:51 05:51 WBC 16.3 H RBC 3.25 L Hgb 10.1 L Hct 30.1 L MCV 93 MCH 31.2 MCHC 33.7 RDW 17.0 H Plt Count 87 L Sodium 133.6 L Potassium 4.0 Chloride 95 L Carbon Dioxide 36 H Anion Gap 3 L BUN 13 Creatinine 0.50 L Est GFR ( Amer) > 60 Glucose 133 H Calcium 8.3 L Magnesium 1.8 Total Bilirubin 0.4 AST 36 Alkaline Phosphatase 64 Total Protein 5.4 L Albumin 2.8 L 05/15/19 05/16/19 16:07 06:25 Creatine Kinase 173 H 88 Impressions: Cervical Spine CT 05/15/19 00:00 IMPRESSION: No fracture or static subluxation of the cervical spine. Head CT 05/15/19 00:00 IMPRESSION: No acute intracranial pathology. Small vessel white matter disease. EVIDENCE OF ACUTE STROKE: NO. Pelvis X-Ray 05/15/19 00:00 IMPRESSION: Fractures of the left superior and inferior pubic ramus. Chest/Abdomen CTA 05/16/19 00:00 IMPRESSION: Contrast bolus not adequate for evaluation of the pulmonary arteries. Slightly increased airspace disease in the superior segment left lower lobe. Otherwise similar parenchymal masses - nodular distortion bilaterally and right apical extrapleural gas -postsurgical changes. Assessment and Plan - Diagnosis (1) Pubic ramus fracture Qualifiers: Encounter type: initial encounter Fracture type: closed Laterality: left Qualified Code(s): S32.592A - Other specified fracture of left pubis, initial encounter for closed fracture Is this a current diagnosis for this admission?: Yes Plan: Due to mechanical fall. Orthopedic surgery consulted. No surgical intervention planned. Recommendations mobilization and weightbearing as tolerated. Supportive measures. Follow-up as outpatient in 6 weeks with radiographs. (2) Depression Qualifiers: Depression Type: major depressive disorder Is this a current diagnosis for this admission?: Yes Plan: Denies any homicidal suicidal ideation. Restart home meds. (3) Tobacco use disorder, severe, dependence Is this a current diagnosis for this admission?: Yes Plan: Counseled on quitting. NicoDerm patch provided. (4) COPD (chronic obstructive pulmonary disease) Qualifiers: COPD type: unspecified COPD Qualified Code(s): J44.9 - Chronic obstructive pulmonary disease, unspecified Is this a current diagnosis for this admission?: Yes Plan: Improving. SPO2 WNL on 2 L. Not on home O2. Unfortunately still smoking. CTA limited to rule out PE otherwise unchanged from previous studies. Continue duo nebs, IV steroids, empiric IV antibiotics, pulmonary toileting, supplemental oxygen, ICS, LMA, LABA. (5) Cachexia Is this a current diagnosis for this admission?: Yes Plan: Consulted dietitian. Pending recommendations. (6) Lung malignancy Is this a current diagnosis for this admission?: Yes Plan: Stage IV lung cancer. Has established oncology follow-up as outpatient As per patient she is not getting any chemotherapy anymore. Palliative care consulted. Outpatient oncology follow-up. - Plan Summary Summary: Patient will be admitted and treated with routine supportive and symptomatic cares. She will be given IV fluids initially and her pain will be treated with Nubain 3 to 5 mg IV every 3 hours as needed using a sliding pain scale. Her usual medications and oxygen will be continued as at home for ongoing treatment of her COPD. A nicotine replacement patch is available for the patient's use, if desired. Smoking cessation has been advised and counseled briefly at the bedside. Dr. Marquez will be consulted for orthopedic care and management. business services representative will be consulted as patient may require [facility] fac ility placement post hospitalization. Physical therapy, occupational therapy and speech therapy will be consulted in anticipation of possible nursing facility placement.
[2019-05-18] MEDS: OXYCODONE-ACETAMINOPHEN 5-325 MG TABLET PO PRN (14:55)
[2019-05-18] MEDS: GUAIFENESIN/CODEINE PHOS 100-10 MG/ 5 ML UDC PO SCH ×2 (14:56→21:01)
[2019-05-19] MEDS: LEVALBUTEROL HCL NEB 1.25 MG/3 ML AMPUL NEB SCH ×4 (02:09→19:58)
[2019-05-19] MEDS: IPRATROPIUM BROMIDE 0.02% NEB 0.5 MG/2.5 ML AMPUL NEB SCH ×4 (02:09→19:58)
[2019-05-19] MEDS: GUAIFENESIN/CODEINE PHOS 100-10 MG/ 5 ML UDC PO SCH ×3 (05:34→21:32)
[2019-05-19] MEDS: HEPARIN SOD (PORCINE) 5,000 UNIT/ML 1 ML VIAL SUBCUT SCH ×3 (05:34→21:33)
[2019-05-19] MEDS: METHYLPREDNISOLONE INJ 40 MG/1 ML SDV IV SCH ×3 (05:34→21:32)
[2019-05-19 06:43] LABS: HEMATOCRIT 30.7 % (36.0-47.0); HEMOGLOBIN 10.2 g/dL (12.0-15.5); MEAN CORPUSCULAR HEMOGLOBIN 31.2 pg (27.0-33.4); MEAN CORPUSCULAR HGB CONC 33.2 g/dL (32.0-36.0); MEAN CORPUSCULAR VOLUME 94 fl (80-97); PLATELET COUNT 110 10^3/uL (150-450); RED BLOOD COUNT 3.26 10^6/uL (3.72-5.28); RED CELL DISTRIBUTION WIDTH 17.1 % (11.5-14.0); WHITE BLOOD COUNT 12.7 10^3/uL (4.0-10.5)
[2019-05-19 06:54] LABS: BLOOD UREA NITROGEN 13 mg/dL (7-20); CALCIUM 8.9 mg/dL (8.4-10.2); GLUCOSE 152 mg/dL (75-110); POTASSIUM 4.5 mmol/L (3.6-5.0)
[2019-05-19 07:00] LABS: CARBON DIOXIDE 38 mmol/L (22-30); CHLORIDE 92 mmol/L (98-107)
[2019-05-19 07:01] LABS: PREALBUMIN 7.1 mg/dL (17.6-36.0)
[2019-05-19 07:02] LABS: ABSOLUTE MONOCYTES # (MANUAL) 0.5 10^3/uL (0.1-1.4); ANION GAP 3 (5-19); BAND NEUTROPHILS % (MANUAL) 8 % (3-5); BASOPHILS % (MANUAL) 0 % (0-2); EOSINOPHILS % (MANUAL) 0 % (0-6); LYMPHOCYTES % (MANUAL) 0 % (13-45); MONOCYTES % (MANUAL) 4 % (3-13); SEGMENTED NEUTROPHILS % (MAN) 88 % (42-78); TOTAL CELLS COUNTED 100
[2019-05-19 07:03] LABS: ANISOCYTOSIS 1+; HYPOCHROMASIA 1+
[2019-05-19 07:04] LABS: PLATELET COMMENT DECREASED
[2019-05-19] MEDS: BUDESONIDE NEB 0.5 MG/2 ML AMPUL NEB SCH ×2 (07:45→19:58)
[2019-05-19] MEDS: FAMOTIDINE 20 MG TABLET PO SCH ×2 (09:31→21:32)
[2019-05-19] MEDS: DOCUSATE SODIUM 100 MG CAPSULE PO SCH ×2 (09:31→17:28)
[2019-05-19] MEDS: DRONABINOL 2.5 MG CAPSULE PO SCH ×2 (09:31→17:28)
[2019-05-19] MEDS: PAROXETINE HCL 20 MG TABLET PO SCH (09:32)
[2019-05-19] MEDS: MORPHINE SULFATE SR 15 MG TABLET PO SCH ×2 (09:33→21:32)
[2019-05-19] MEDS: OXYCODONE-ACETAMINOPHEN 5-325 MG TABLET PO PRN ×2 (09:35→17:27)
[2019-05-19] MEDS: CEFTRIAXONE 1 GM/D5W RTU 1 GM/50 ML RTUPB IV SCH (09:36)
--- NOTE | 2019-05-19 09:43 | PDOC PROGRESS REPORT ---
Subjective Progress Note for:: 05/19/19 Subjective:: 74-year-old female past medical history of stage IV lung cancer, initially diagnosed in 2012, on chemotherapy, followed by oncologist outpatient, current smoker, severe COPD, tachycardia, brought to ED for evaluation after a fall. Patient sustained a fall after became entangled in her oxygen tubing was found on the floor by home health aide, was brought to ED where she was found to have an acute left superior and inferior rami fractures. 05/16/2019. Patient complaining of constant pelvic pain, 5/5, nonradiating, worsened with movement. Orthopedic surgery consulted however they are recommending nonsurgical management. Patient denies any fever, chills, nausea, vomiting, diarrhea, constipation or any urinary symptoms. 05/17/2019. Still complaining constant pelvic pain however improving since yesterday, more awake and communicative today, does not seem to be in any apparent distress, denies any fever, chills, nausea, vomiting, diarrhea, constipation or any urinary symptoms. 05/18/2019. Moderate improvement of her hip pain compared to yesterday, does not look in any acute distress, awake and alert x3, in no apparent distress, denies any fever, chills, nausea, vomiting, diarrhea, constipation or any urinary symptoms. Patient would like to go to inpatient rehab after discharge, I have informed her that I will try and see if he will qualify for that, I have informed her that I have consulted palliative care and she is willing to discuss her care with them. 05/19/2019. Patient still complaining of left hip pain, does not appear to be in acute distress, alert at x3, in no apparent respiratory distress, I have consulted palliative care and social media senior associate for possible placement. Patient would like to go to inpatient rehab. Not sure if she will qualify. Reason For Visit: PELVIC FRACTURE Physical Exam Vital Signs: Temp Pulse Resp BP Pulse Ox 98.0 F 96 18 129/64 H 93 05/18/19 23:52 05/19/19 02:09 05/19/19 02:09 05/18/19 23:52 05/19/19 02:09 Intake & Output 05/18/19 05/19/19 05/20/19 06:59 06:59 06:59 Intake Total 675 Output Total 1300 Balance -625 Weight 39.7 kg General appearance: PRESENT: thin Respiratory exam: PRESENT: clear to auscultation marilyn. ABSENT: rales, rhonchi, wheezes Cardiovascular exam: PRESENT: RRR. ABSENT: diastolic murmur, rubs, systolic murmur Extremities exam: PRESENT: full ROM, tenderness - Left lower extremity pain, limited range of motion. Neurovascularly intact.. ABSENT: calf tenderness, clubbing, pedal edema Neurological exam: PRESENT: alert, awake, oriented to person, oriented to place, oriented to time, oriented to situation, CN II-XII grossly intact. ABSENT: motor sensory deficit Results Laboratory Results: 05/19/19 05:35 05/19/19 05:35 05/19/19 05/19/19 05:35 05:35 WBC 12.7 H RBC 3.26 L Hgb 10.2 L Hct 30.7 L MCV 94 MCH 31.2 MCHC 33.2 RDW 17.1 H Plt Count 110 L Seg Neutrophils % Not Reportable Sodium 133.0 L Potassium 4.5 Chloride 92 L Carbon Dioxide 38 H Anion Gap 3 L BUN 13 Creatinine 0.48 L Est GFR ( Amer) > 60 Glucose 152 H Calcium 8.9 Prealbumin 7.1 L 05/15/19 05/16/19 16:07 06:25 Creatine Kinase 173 H 88 Impressions: Cervical Spine CT 05/15/19 00:00 IMPRESSION: No fracture or static subluxation of the cervical spine. Head CT 05/15/19 00:00 IMPRESSION: No acute intracranial pathology. Small vessel white matter disease. EVIDENCE OF ACUTE STROKE: NO. Pelvis X-Ray 05/15/19 00:00 IMPRESSION: Fractures of the left superior and inferior pubic ramus. Chest/Abdomen CTA 05/16/19 00:00 IMPRESSION: Contrast bolus not adequate for evaluation of the pulmonary arteries. Slightly increased airspace disease in the superior segment left lower lobe. Otherwise similar parenchymal masses - nodular distortion bilaterally and right apical extrapleural gas -postsurgical changes. Assessment and Plan - Diagnosis (1) Pubic ramus fracture Qualifiers: Encounter type: initial encounter Fracture type: closed Laterality: left Qualified Code(s): S32.592A - Other specified fracture of left pubis, initial encounter for closed fracture Is this a current diagnosis for this admission?: Yes Plan: Due to mechanical fall. Orthopedic surgery consulted. No surgical intervention planned. Recommendations mobilization and weightbearing as tolerated. Supportive measures. Follow-up as outpatient in 6 weeks with radiographs. (2) Depression Qualifiers: Depression Type: major depressive disorder Is this a current diagnosis for this admission?: Yes Plan: Denies any homicidal suicidal ideation. Restart home meds. (3) Tobacco use disorder, severe, dependence Is this a current diagnosis for this admission?: Yes Plan: Counseled on quitting. NicoDerm patch provided. (4) COPD (chronic obstructive pulmonary disease) Qualifiers: COPD type: unspecified COPD Qualified Code(s): J44.9 - Chronic obstructive pulmonary disease, unspecified Is this a current diagnosis for this admission?: Yes Plan: Improving. SPO2 WNL on 2 L. Not on home O2. Unfortunately still smoking. CTA limited to rule out PE otherwise unchanged from previous studies. Continue duo nebs, IV steroids, empiric IV antibiotics, pulmonary toileting, supplemental oxygen, ICS, LMA, LABA. (5) Cachexia Is this a current diagnosis for this admission?: Yes Plan: Due to underlying malignancy. Take dronabinol at home. Restart home meds. Consulted dietitian. Pending recommendations. (6) Lung malignancy Is this a current diagnosis for this admission?: Yes Plan: Stage IV lung cancer. Has established oncology follow-up as outpatient As per patient she is not getting any chemotherapy anymore. Palliative care consulted. Outpatient oncology follow-up. - Plan Summary Summary: Patient will be admitted and treated with routine supportive and symptomatic cares. She will be given IV fluids initially and her pain will be treated with Nubain 3 to 5 mg IV every 3 hours as needed using a sliding pain scale. Her usual medications and oxygen will be continued as at home for ongoing treatment of her COPD. A nicotine replacement patch is available for the patient's use, if desired. Smoking cessation has been advised and counseled briefly at the bedside. Dr. Marquez will be consulted for orthopedic care and management. patient services coordinator will be consulted as patient may require [facility] facility placement post hospitalization. Physical therapy, occupational therapy and speech therapy will be consulted in anticipation of possible nursing facility placement.
[2019-05-19] MEDS ORDERED: ONDANSETRON HCL INJ/PF 4 MG/2 ML SDV IV PRN (10:00)
[2019-05-20] MEDS: LORAZEPAM 1 MG TABLET PO PRN ×2 (01:53→21:57)
[2019-05-20] MEDS: OXYCODONE-ACETAMINOPHEN 5-325 MG TABLET PO PRN ×3 (01:54→17:01)
[2019-05-20] MEDS: IPRATROPIUM BROMIDE 0.02% NEB 0.5 MG/2.5 ML AMPUL NEB SCH ×4 (02:06→19:49)
[2019-05-20] MEDS: LEVALBUTEROL HCL NEB 1.25 MG/3 ML AMPUL NEB SCH ×4 (02:06→19:49)
[2019-05-20] MEDS: GUAIFENESIN/CODEINE PHOS 100-10 MG/ 5 ML UDC PO SCH ×3 (05:31→21:42)
[2019-05-20] MEDS: HEPARIN SOD (PORCINE) 5,000 UNIT/ML 1 ML VIAL SUBCUT SCH ×3 (06:36→21:00)
[2019-05-20] MEDS: METHYLPREDNISOLONE INJ 40 MG/1 ML SDV IV SCH ×3 (06:38→21:42)
[2019-05-20] MEDS: BUDESONIDE NEB 0.5 MG/2 ML AMPUL NEB SCH ×2 (07:44→19:49)
[2019-05-20] MEDS: MORPHINE SULFATE SR 15 MG TABLET PO SCH ×2 (09:28→21:42)
[2019-05-20] MEDS: DRONABINOL 2.5 MG CAPSULE PO SCH (09:28)
[2019-05-20] MEDS: DOCUSATE SODIUM 100 MG CAPSULE PO SCH ×2 (09:28→17:24)
[2019-05-20] MEDS: PAROXETINE HCL 20 MG TABLET PO SCH (09:28)
[2019-05-20] MEDS: FAMOTIDINE 20 MG TABLET PO SCH ×2 (09:29→21:42)
[2019-05-20] MEDS: CEFTRIAXONE 1 GM/D5W RTU 1 GM/50 ML RTUPB IV SCH (09:30)
[2019-05-20] MEDS ORDERED: HYDRALAZINE HCL INJ/PF 20 MG/1 ML SDV IV PRN (15:22)
--- NOTE | 2019-05-20 15:35 | PDOC PROGRESS REPORT ---
Subjective Progress Note for:: 05/20/19 Subjective:: 74-year-old female past medical history of stage IV lung cancer, initially diagnosed in 2012, on chemotherapy, followed by oncologist outpatient, current smoker, severe COPD, tachycardia, brought to ED for evaluation after a fall. Patient sustained a fall after became entangled in her oxygen tubing was found on the floor by home health aide, was brought to ED where she was found to have an acute left superior and inferior rami fractures. 05/16/2019. Patient complaining of constant pelvic pain, 5/5, nonradiating, worsened with movement. Orthopedic surgery consulted however they are recommending nonsurgical management. Patient denies any fever, chills, nausea, vomiting, diarrhea, constipation or any urinary symptoms. 05/17/2019. Still complaining constant pelvic pain however improving since yesterday, more awake and communicative today, does not seem to be in any apparent distress, denies any fever, chills, nausea, vomiting, diarrhea, constipation or any urinary symptoms. 05/18/2019. Moderate improvement of her hip pain compared to yesterday, does not look in any acute distress, awake and alert x3, in no apparent distress, denies any fever, chills, nausea, vomiting, diarrhea, constipation or any urinary symptoms. Patient would like to go to inpatient rehab after discharge, I have informed her that I will try and see if he will qualify for that, I have informed her that I have consulted palliative care and she is willing to discuss her care with them. 05/19/2019. Patient still complaining of left hip pain, does not appear to be in acute distress, alert at x3, in no apparent respiratory distress, I have consulted palliative care and social services coordinator for possible placement. Patient would like to go to inpatient rehab. Not sure if she will qualify. 05/20/2019. No acute events overnight. Patient comfortably sleeping easily arousable, still complaining of pelvic pain, denies any fever, chills, nausea, vomiting, diarrhea, constipation. Endorsing low appetite. As per primary nurse patient noted to be hallucinating at times but when asked patient denies it. Patient is pending transfer to rehab. Reason For Visit: PELVIC FRACTURE Physical Exam Vital Signs: Temp Pulse Resp BP Pulse Ox 97.8 F 95 18 168/78 H 93 05/20/19 12:06 05/20/19 13:29 05/20/19 13:29 05/20/19 12:06 05/20/19 13:29 Intake & Output 05/19/19 05/20/19 05/21/19 06:59 06:59 06:59 Intake Total 675 290 50 Output Total 1300 750 Balance -625 -460 50 Weight 39.7 kg 39.8 kg General appearance: PRESENT: no acute distress, well-developed, well-nourished Respiratory exam: PRESENT: clear to auscultation marilyn. ABSENT: rales, rhonchi, wheezes Cardiovascular exam: PRESENT: RRR. ABSENT: diastolic murmur, rubs, systolic murmur GI/Abdominal exam: PRESENT: normal bowel sounds, soft. ABSENT: distended, guarding, mass, organolmegaly, rebound, tenderness Extremities exam: PRESENT: full ROM, tenderness - Left pelvis and left hip.. ABSENT: calf tenderness, clubbing, pedal edema Neurological exam: PRESENT: alert, awake - Sleeping. Easily arousable., oriented to person, oriented to time, CN II-XII grossly intact, motor sensory deficit Results Laboratory Results: 05/19/19 05:35 05/19/19 05:35 05/15/19 05/16/19 16:07 06:25 Creatine Kinase 173 H 88 Impressions: Cervical Spine CT 05/15/19 00:00 IMPRESSION: No fracture or static subluxation of the cervical spine. Head CT 05/15/19 00:00 IMPRESSION: No acute intracranial pathology. Small vessel white matter disease. EVIDENCE OF ACUTE STROKE: NO. Pelvis X-Ray 05/15/19 00:00 IMPRESSION: Fractures of the left superior and inferior pubic ramus. Chest/Abdomen CTA 05/16/19 00:00 IMPRESSION: Contrast bolus not adequate for evaluation of the pulmonary arteries. Slightly increased airspace disease in the superior segment left lower lobe. Otherwise similar parenchymal masses - nodular distortion bilaterally and right apical extrapleural gas -postsurgical changes. Assessment and Plan - Diagnosis (1) Pubic ramus fracture Qualifiers: Encounter type: initial encounter Fracture type: closed Laterality: left Qualified Code(s): S32.592A - Other specified fracture of left pubis, initial encounter for closed fracture Is this a current diagnosis for this admission?: Yes Plan: Due to mechanical fall. Orthopedic surgery consulted. No surgical intervention planned. Recommendations mobilization and weightbearing as tolerated. Supportive measures. Follow-up as outpatient in 6 weeks with radiographs. Continue PT OT. Pending transfer to rehab. (2) Depression Qualifiers: Depression Type: major depressive disorder Is this a current diagnosis for this admission?: Yes Plan: Denies any homicidal suicidal ideation. Restart home meds. (3) Tobacco use disorder, severe, dependence Is this a current diagnosis for this admission?: Yes Plan: Counseled on quitting. NicoDerm patch provided. (4) COPD (chronic obstructive pulmonary disease) Qualifiers: COPD type: COPD with acute exacerbation Qualified Code(s): J44.1 - Chronic obstructive pulmonary disease with (acute) exacerbation Is this a current diagnosis for this admission?: Yes Plan: Improving. SPO2 WNL on 2 L. Not on home O2. Unfortunately still smoking. CTA limited to rule out PE otherwise unchanged from previous studies. Continue duo nebs, IV steroids, empiric IV antibiotics, pulmonary toileting, supplemental oxygen, ICS, LMA, LABA. (5) Cachexia Is this a current diagnosis for this admission?: Yes Plan: Due to underlying malignancy. Take dronabinol at home. Started dronabinol however the patient noticed to hallucinate at times and become somnolent. Dietitian has been consulted. Pending recommendation. DC dronabinol. Start on Megace 800 mg p.o. daily. (6) Lung malignancy Is this a current diagnosis for this admission?: Yes Plan: Stage IV lung cancer. Has established oncology follow-up as outpatient As per patient she is not getting any chemotherapy anymore. Palliative care consulted. Pending recommendations. Outpatient oncology follow-up.
[2019-05-20] MEDS: LISINOPRIL 5 MG TABLET PO SCH (16:57)
[2019-05-20] MEDS: MEGESTROL ACETATE SUSP 400 MG/10 ML UDCUP PO SCH (17:20)
[2019-05-21] MEDS: IPRATROPIUM BROMIDE 0.02% NEB 0.5 MG/2.5 ML AMPUL NEB SCH ×4 (02:13→19:39)
[2019-05-21] MEDS: LEVALBUTEROL HCL NEB 1.25 MG/3 ML AMPUL NEB SCH ×4 (02:13→19:39)
[2019-05-21] MEDS: OXYCODONE-ACETAMINOPHEN 5-325 MG TABLET PO PRN ×3 (03:22→15:40)
[2019-05-21] MEDS: HEPARIN SOD (PORCINE) 5,000 UNIT/ML 1 ML VIAL SUBCUT SCH ×3 (05:22→22:24)
[2019-05-21] MEDS: METHYLPREDNISOLONE INJ 40 MG/1 ML SDV IV SCH ×3 (05:30→22:24)
[2019-05-21] MEDS: GUAIFENESIN/CODEINE PHOS 100-10 MG/ 5 ML UDC PO SCH ×3 (05:30→22:25)
[2019-05-21 06:04] LABS: HEMATOCRIT 30.6 % (36.0-47.0); HEMOGLOBIN 10.3 g/dL (12.0-15.5); MEAN CORPUSCULAR HEMOGLOBIN 31.7 pg (27.0-33.4); MEAN CORPUSCULAR HGB CONC 33.8 g/dL (32.0-36.0); MEAN CORPUSCULAR VOLUME 94 fl (80-97); PLATELET COUNT 153 10^3/uL (150-450); RED BLOOD COUNT 3.26 10^6/uL (3.72-5.28); RED CELL DISTRIBUTION WIDTH 17.1 % (11.5-14.0); WHITE BLOOD COUNT 10.7 10^3/uL (4.0-10.5)
[2019-05-21 06:21] LABS: ALKALINE PHOSPHATASE 75 U/L (38-126); ASPARTATE AMINO TRANSFERASE 20 U/L (14-36); BILIRUBIN,DIRECT 0.1 mg/dL (0.0-0.4); BILIRUBIN,TOTAL 0.5 mg/dL (0.2-1.3); BLOOD UREA NITROGEN 14 mg/dL (7-20); CALCIUM 8.7 mg/dL (8.4-10.2); CHLORIDE 96 mmol/L (98-107); GLUCOSE 129 mg/dL (75-110); POTASSIUM 3.6 mmol/L (3.6-5.0); TOTAL PROTEIN 5.5 g/dL (6.3-8.2)
[2019-05-21 06:32] LABS: ANION GAP 4 (5-19); CARBON DIOXIDE 38 mmol/L (22-30)
[2019-05-21 06:38] LABS: ABSOLUTE LYMPHOCYTES# (MANUAL) 0.5 10^3/uL (0.5-4.7); ABSOLUTE MONOCYTES # (MANUAL) 0.4 10^3/uL (0.1-1.4); ANISOCYTOSIS 1+; BASOPHILS % (MANUAL) 0 % (0-2); EOSINOPHILS % (MANUAL) 0 % (0-6); LYMPHOCYTES % (MANUAL) 5 % (13-45); MONOCYTES % (MANUAL) 4 % (3-13); OVALOCYTES SLIGHT; PLATELET COMMENT ADEQUATE; POIKILOCYTOSIS SLIGHT; SEGMENTED NEUTROPHILS % (MAN) 91 % (42-78); TOTAL CELLS COUNTED 100
[2019-05-21] MEDS: LORAZEPAM 1 MG TABLET PO PRN ×3 (07:47→22:40)
[2019-05-21] MEDS: PAROXETINE HCL 20 MG TABLET PO SCH (07:47)
[2019-05-21] MEDS: BUDESONIDE NEB 0.5 MG/2 ML AMPUL NEB SCH ×2 (08:59→19:39)
[2019-05-21] MEDS: MEGESTROL ACETATE SUSP 400 MG/10 ML UDCUP PO SCH (09:18)
[2019-05-21] MEDS: MORPHINE SULFATE SR 15 MG TABLET PO SCH ×2 (09:19→22:25)
[2019-05-21] MEDS: DOCUSATE SODIUM 100 MG CAPSULE PO SCH ×2 (09:20→17:15)
[2019-05-21] MEDS: LISINOPRIL 5 MG TABLET PO SCH (09:20)
[2019-05-21] MEDS: FAMOTIDINE 20 MG TABLET PO SCH ×2 (09:20→22:25)
[2019-05-21] MEDS: CEFTRIAXONE 1 GM/D5W RTU 1 GM/50 ML RTUPB IV SCH (09:21)
--- NOTE | 2019-05-21 17:20 | PDOC PROGRESS REPORT ---
Subjective Progress Note for:: 05/21/19 Subjective:: No adverse events overnight. This patient waxes [id number] between passed out in the sleep, and then waking up spontaneously saying she is in pain. She was sleeping soundly whenever I came into the room but evidently she will wake up periodically saying she is in pain and then go back to sleep. She does not seem to be eating much of anything at all. Even when she was given pills for pain earlier she acted like she did not want to swallow them. Reason For Visit: PELVIC FRACTURE Physical Exam Vital Signs: Temp Pulse Resp BP Pulse Ox 97.8 F 104 H 14 158/84 H 95 05/21/19 12:34 05/21/19 13:36 05/21/19 16:00 05/21/19 12:34 05/21/19 16:00 Intake & Output 05/20/19 05/21/19 05/22/19 06:59 06:59 06:59 Intake Total 290 50 50 Output Total 750 650 Balance -460 -600 50 Weight 39.8 kg 38.4 kg General appearance: PRESENT: no acute distress, disheveled, thin. ABSENT: cooperative Teeth exam: PRESENT: edentulous Respiratory exam: PRESENT: symmetrical, unlabored, wheezes. ABSENT: accessory muscle use, chest wall tenderness, crackles, prolonged expiratory phas, rhonchi, tachypnea Cardiovascular exam: PRESENT: RRR, +S1, +S2 Pulses: PRESENT: normal carotid pulses Vascular exam: PRESENT: normal capillary refill GI/Abdominal exam: PRESENT: hypoactive bowel sounds, soft. ABSENT: distended, guarding, rebound, tenderness Extremities exam: ABSENT: clubbing, pedal edema Musculoskeletal exam: PRESENT: other - She had evidence of diffuse muscle wasting. ABSENT: deformity Neurological exam: PRESENT: oriented to person. ABSENT: awake - Will open her eyes to verbal command but her name is called but she went right back to sleep Psychiatric exam: PRESENT: flat affect Skin exam: PRESENT: dry, warm Results Laboratory Results: 05/21/19 05:35 05/21/19 05:35 05/21/19 05/21/19 05:35 05:35 WBC 10.7 H RBC 3.26 L Hgb 10.3 L Hct 30.6 L MCV 94 MCH 31.7 MCHC 33.8 RDW 17.1 H Plt Count 153 Seg Neutrophils % Not Reportable Sodium 137.9 Potassium 3.6 Chloride 96 L Carbon Dioxide 38 H Anion Gap 4 L BUN 14 Creatinine 0.49 L Est GFR ( Amer) > 60 Glucose 129 H Calcium 8.7 Total Bilirubin 0.5 AST 20 Alkaline Phosphatase 75 Total Protein 5.5 L Albumin 3.0 L 05/16/19 14:25 Blood Blood Culture - Final NO GROWTH IN 5 DAYS 05/16/19 14:17 Blood Blood Culture - Final NO GROWTH IN 5 DAYS 05/15/19 05/16/19 16:07 06:25 Creatine Kinase 173 H 88 Impressions: Cervical Spine CT 05/15/19 00:00 IMPRESSION: No fracture or static subluxation of the cervical spine. Head CT 05/15/19 00:00 IMPRESSION: No acute intracranial pathology. Small vessel white matter disease. EVIDENCE OF ACUTE STROKE: NO. Pelvis X-Ray 05/15/19 00:00 IMPRESSION: Fractures of the left superior and inferior pubic ramus. Chest/Abdomen CTA 05/16/19 00:00 IMPRESSION: Contrast bolus not adequate for evaluation of the pulmonary arteries. Slightly increased airspace disease in the superior segment left lower lobe. Otherwise similar parenchymal masses - nodular distortion bilaterally and right apical extrapleural gas -postsurgical changes. Assessment and Plan - Diagnosis (1) Lung malignancy Is this a current diagnosis for this admission?: Yes Plan: Stage IV lung cancer. Has established oncology follow-up as outpatient As per patient she is not getting any chemotherapy anymore. Palliative care consulted. Pending recommendations. Outpatient oncology follow-up. (2) Pubic ramus fracture Qualifiers: Encounter type: initial encounter Fracture type: closed Laterality: left Qualified Code(s): S32.592A - Other specified fracture of left pubis, initial encounter for closed fracture Is this a current diagnosis for this admission?: Yes Plan: Due to mechanical fall. Orthopedic surgery consulted. No surgical intervention planned. Recommendations mobilization and weightbearing as tolerated. Supportive measures. Follow-up as outpatient in 6 weeks with radiographs. Continue PT OT. Pending transfer to rehab. Not sure how good of a rehab candidate she is. Family is insisting on it. (3) Acute hypoxemic respiratory failure Is this a current diagnosis for this admission?: Yes Plan: Continues on BiPAP while asleep and supplemental O2 while awake, I suspect that this is probably more chronic in nature (4) COPD (chronic obstructive pulmonary disease) Qualifiers: COPD type: COPD with acute exacerbation Qualified Code(s): J44.1 - Chronic obstructive pulmonary disease with (acute) exacerbation Is this a current diagnosis for this admission?: Yes Plan: Continue steroids, bronchodilators, antibiotics, and oxygen support - Plan Summary Summary: Patient will be admitted and treated with routine supportive and symptomatic cares. She will be given IV fluids initially and her pain will be treated with Nubain 3 to 5 mg IV every 3 hours as needed using a sliding pain scale. Her usual medications and oxygen will be continued as at home for ongoing treatment of her COPD. A nicotine replacement patch is available for the patient's use, if desired. Smoking cessation has been advised and counseled briefly at the bedside. Dr. Marquez will be consulted for orthopedic care and management. director of student financial services will be consulted as patient may require [facility] facility placement post hospitalization. Physical therapy, occupational therapy and speech therapy will be consulted in anticipation of possible nursing facility placement. - Time Time Spent with patient: 15-24 minutes
--- NOTE | 2019-05-21 19:15 | RADIOLOGY REPORT (SQ) ---
EXAM DESCRIPTION: CHEST SINGLE VIEW COMPLETED DATE/TIME: 05/21/2019 6:58 pm REASON FOR STUDY: BIPAP dependent, wet cough COMPARISON: 01/27/2019 EXAM PARAMETERS: NUMBER OF VIEWS: One view. TECHNIQUE: Single frontal radiographic view of the chest acquired. RADIATION DOSE: NA LIMITATIONS: None. FINDINGS: LUNGS AND PLEURA: Reduced volume in the right lung. There is persistent area of opacifica tion the left base that is is less well-defined than on the earlier study. Pleural thickening in the right upper hemithorax with considerable opacification in the right upper lobe. MEDIASTINUM AND HILAR STRUCTURES: No masses. Contour normal. HEART AND VASCULAR STRUCTURES: Heart normal in size. Normal vasculature. BONES: No acute findings. HARDWARE: Injection port on the right. Surgical clips. OTHER: No other significant finding. IMPRESSION: Chronic pleural and parenchymal changes bilaterally. There is increased opacification i n the right upper lobe compared to the earlier study. Cannot exclude an acute pneumonia. TECHNICAL DOCUMENTATION: JOB ID: [id number] [employer]- All Rights Reserved Reading location - IP/workstation name: [email or web address]
[2019-05-22] MEDS: IPRATROPIUM BROMIDE 0.02% NEB 0.5 MG/2.5 ML AMPUL NEB SCH ×4 (02:13→20:18)
[2019-05-22] MEDS: LEVALBUTEROL HCL NEB 1.25 MG/3 ML AMPUL NEB SCH ×4 (02:13→20:18)
[2019-05-22] MEDS: OXYCODONE-ACETAMINOPHEN 5-325 MG TABLET PO PRN ×2 (02:39→18:33)
[2019-05-22] MEDS: METHYLPREDNISOLONE INJ 40 MG/1 ML SDV IV SCH ×3 (05:21→22:37)
[2019-05-22] MEDS: GUAIFENESIN/CODEINE PHOS 100-10 MG/ 5 ML UDC PO SCH ×3 (05:21→22:37)
[2019-05-22] MEDS: HEPARIN SOD (PORCINE) 5,000 UNIT/ML 1 ML VIAL SUBCUT SCH ×3 (05:21→22:38)
[2019-05-22] MEDS: BUDESONIDE NEB 0.5 MG/2 ML AMPUL NEB SCH ×2 (08:21→20:18)
[2019-05-22] MEDS: PAROXETINE HCL 20 MG TABLET PO SCH (08:59)
[2019-05-22] MEDS: MEGESTROL ACETATE SUSP 400 MG/10 ML UDCUP PO SCH (08:59)
[2019-05-22] MEDS: CEFTRIAXONE 1 GM/D5W RTU 1 GM/50 ML RTUPB IV SCH (08:59)
[2019-05-22] MEDS: METRONIDAZOLE 500 MG/NS RTU 500 MG/100 ML RTUPB IV SCH ×3 (08:59→22:00)
[2019-05-22] MEDS: LISINOPRIL 5 MG TABLET PO SCH (09:00)
[2019-05-22] MEDS: MORPHINE SULFATE SR 15 MG TABLET PO SCH ×2 (09:00→22:38)
[2019-05-22] MEDS: FAMOTIDINE 20 MG TABLET PO SCH ×2 (09:00→22:37)
[2019-05-22] MEDS: DOCUSATE SODIUM 100 MG CAPSULE PO SCH ×2 (09:00→17:54)
[2019-05-22 10:06] LABS: ARTERIAL BLOOD BASE EXCESS 11.2 mmol/L; ARTERIAL BLOOD H2CO3 1.43 mmol/L (1.05-1.35); ARTERIAL BLOOD HCO3 35.9 mmol/L (20-24); ARTERIAL BLOOD O2 SATURATION 89.7 % (94-98); ARTERIAL BLOOD PCO2 47.5 mmHg (35-45); ARTERIAL BLOOD PO2 52.9 mmHg (80-100); ARTERIAL BLOOD TOTAL CO2 37.3 mmol/L (21-25)
[2019-05-22 10:07] LABS: ARTERIAL BLOOD FIO2 28%
--- NOTE | 2019-05-22 16:19 | PDOC PROGRESS REPORT ---
Subjective Progress Note for:: 05/22/19 Subjective:: No adverse events overnight. She was asleep again today when I came into the room and would open her eyes to verbal command but otherwise looked comfortable. Her daughter was in the room and I had a chance to talk to her today. She has a copy of the patient's medical power of disability attorney paperwork from [place] which names the daughter I spoke with as the MPOA. She said that she and her sister would like to talk someone from hospice. Reason For Visit: PELVIC FRACTURE Physical Exam Vital Signs: Temp Pulse Resp BP Pulse Ox 97.9 F 98 18 142/99 H 95 05/22/19 11:36 05/22/19 13:47 05/22/19 13:47 05/22/19 11:36 05/22/19 13:47 Intake & Output 05/21/19 05/22/19 05/23/19 06:59 06:59 06:59 Intake Total 50 170 260 Output Total 650 425 200 Balance -600 -255 60 Weight 38.4 kg 37.7 kg General appearance: PRESENT: no acute distress, disheveled, thin. ABSENT: cooperative Teeth exam: PRESENT: edentulous Respiratory exam: PRESENT: symmetrical, unlabored, wheezes. ABSENT: accessory muscle use, chest wall tenderness, crackles, prolonged expiratory phas, rhonchi, tachypnea Cardiovascular exam: PRESENT: RRR, +S1, +S2 Pulses: PRESENT: normal carotid pulses Vascular exam: PRESENT: normal capillary refill GI/Abdominal exam: PRESENT: hypoactive bowel sounds, soft. ABSENT: distended, guarding, rebound, tenderness Extremities exam: ABSENT: clubbing, pedal edema Musculoskeletal exam: PRESENT: other - She had evidence of diffuse muscle wasting. ABSENT: deformity Neurological exam: PRESENT: oriented to person. ABSENT: awake - Will open her eyes to verbal command but her name is called but she went right back to sleep Psychiatric exam: PRESENT: flat affect Skin exam: PRESENT: dry, warm Results Laboratory Results: 05/21/19 05:35 05/21/19 05:35 05/22/19 09:30 Carbonic Acid 1.43 H HCO3/H2CO3 Ratio 25:1 ABG pH 7.50 H ABG pCO2 47.5 H ABG pO2 52.9 L ABG HCO3 35.9 H ABG O2 Saturation 89.7 L ABG Base Excess 11.2 FiO2 28% 05/16/19 14:25 Blood Blood Culture - Final NO GROWTH IN 5 DAYS 05/16/19 14:17 Blood Blood Culture - Final NO GROWTH IN 5 DAYS 05/15/19 05/16/19 16:07 06:25 Creatine Kinase 173 H 88 Impressions: Cervical Spine CT 05/15/19 00:00 IMPRESSION: No fracture or static subluxation of the cervical spine. Head CT 05/15/19 00:00 IMPRESSION: No acute intracranial pathology. Small vessel white matter disease. EVIDENCE OF ACUTE STROKE: NO. Pelvis X-Ray 05/15/19 00:00 IMPRESSION: Fractures of the left superior and inferior pubic ramus. Chest/Abdomen CTA 05/16/19 00:00 IMPRESSION: Contrast bolus not adequate for evaluation of the pulmonary arteries. Slightly increased airspace disease in the superior segment left lower lobe. Otherwise similar parenchymal masses - nodular distortion bilaterally and right apical extrapleural gas -postsurgical changes. Chest X-Ray 05/21/19 00:00 IMPRESSION: Chronic pleural and parenchymal changes bilaterally. There is increased opacification in the right upper lobe compared to the earlier study. Cannot exclude an acute pneumonia. Assessment and Plan - Diagnosis (1) Lung malignancy Is this a current diagnosis for this admission?: Yes Plan: Stage IV lung cancer. Has established oncology follow-up as outpatient As per patient she is not getting any chemotherapy anymore. Hospice consulted. Pending recommendations. Outpatient oncology follow-up. (2) Pubic ramus fracture Qualifiers: Encounter type: initial encounter Fracture type: closed Laterality: left Qualified Code(s): S32.592A - Other specified fracture of left pubis, initial encounter for closed fracture Is this a current diagnosis for this admission?: Yes Plan: Due to mechanical fall. Orthopedic surgery consulted. No surgical intervention planned. Recommendations mobilization and weightbearing as tolerated. Supportive measures. Follow-up as outpatient in 6 weeks with radiographs. Cannot participate with PT. Family has now decided against rehab and want to talk to someone from hospice. She is not eating enough to help the fracture heal. (3) Acute hypoxemic respiratory failure Is this a current diagnosis for this admission?: Yes Plan: Continues on BiPAP while asleep and supplemental O2 while awake, I suspect that this is probably more chronic in nature (4) COPD (chronic obstructive pulmonary disease) Qualifiers: COPD type: COPD with acute exacerbation Qualified Code(s): J44.1 - Chronic obstructive pulmonary disease with (acute) exacerbation Is this a current diagnosis for this admission?: Yes Plan: Continue steroids, bronchodilators, antibiotics, and oxygen support - Plan Summary Summary: Patient will be admitted and treated with routine supportive and symptomatic cares. She will be given IV fluids initially and her pain will be treated with Nubain 3 to 5 mg IV every 3 hours as needed using a sliding pain scale. Her usu al medications and oxygen will be continued as at home for ongoing treatment of her COPD. A nicotine replacement patch is available for the patient's use, if desired. Smoking cessation has been advised and counseled briefly at the bedside. Dr. Marquez will be consulted for orthopedic care and management. animal services officer will be consulted as patient may require residential facility placement post hospitalization. Physical therapy, occupational therapy and speech therapy will be consulted in anticipation of possible nursing facility placement. - Time Time Spent with patient: 25-34 minutes
[2019-05-23] MEDS: OXYCODONE-ACETAMINOPHEN 5-325 MG TABLET PO PRN ×3 (01:31→21:36)
[2019-05-23] MEDS: IPRATROPIUM BROMIDE 0.02% NEB 0.5 MG/2.5 ML AMPUL NEB SCH ×4 (02:36→19:38)
[2019-05-23] MEDS: LEVALBUTEROL HCL NEB 1.25 MG/3 ML AMPUL NEB SCH ×4 (02:36→19:38)
[2019-05-23] MEDS: METRONIDAZOLE 500 MG/NS RTU 500 MG/100 ML RTUPB IV SCH ×4 (02:47→20:31)
[2019-05-23] MEDS: GUAIFENESIN/CODEINE PHOS 100-10 MG/ 5 ML UDC PO SCH ×3 (05:33→21:35)
[2019-05-23] MEDS: METHYLPREDNISOLONE INJ 40 MG/1 ML SDV IV SCH ×2 (05:33→13:11)
[2019-05-23] MEDS: HEPARIN SOD (PORCINE) 5,000 UNIT/ML 1 ML VIAL SUBCUT SCH ×3 (05:34→21:37)
[2019-05-23] MEDS: BUDESONIDE NEB 0.5 MG/2 ML AMPUL NEB SCH ×2 (07:54→19:38)
[2019-05-23] MEDS: PAROXETINE HCL 20 MG TABLET PO SCH (08:34)
[2019-05-23] MEDS: LORAZEPAM 1 MG TABLET PO PRN (08:45)
[2019-05-23] MEDS: FAMOTIDINE 20 MG TABLET PO SCH ×2 (09:22→21:38)
[2019-05-23] MEDS: MEGESTROL ACETATE SUSP 400 MG/10 ML UDCUP PO SCH (09:22)
[2019-05-23] MEDS: LISINOPRIL 5 MG TABLET PO SCH (09:22)
[2019-05-23] MEDS: MORPHINE SULFATE SR 15 MG TABLET PO SCH (09:24)
[2019-05-23] MEDS: DOCUSATE SODIUM 100 MG CAPSULE PO SCH ×2 (09:28→17:53)
[2019-05-23] MEDS: CEFTRIAXONE 1 GM/D5W RTU 1 GM/50 ML RTUPB IV SCH (10:16)
--- NOTE | 2019-05-23 13:13 | PDOC PROGRESS REPORT ---
Subjective Progress Note for:: 05/23/19 Subjective:: 74-year-old female past medical history of stage IV lung cancer, initially diagnosed in 2012, on chemotherapy, followed by oncologist outpatient, current smoker, severe COPD, tachycardia, brought to ED for evaluation after a fall. Patient sustained a fall after became entangled in her oxygen tubing was found on the floor by home health aide, was brought to ED where she was found to have an acute left superior and inferior rami fractures. 05/16/2019. Patient complaining of constant pelvic pain, 5/5, nonradiating, worsened with movement. Orthopedic surgery consulted however they are recommending nonsurgical management. Patient denies any fever, chills, nausea, vomiting, diarrhea, constipation or any urinary symptoms. 05/17/2019. Still complaining constant pelvic pain however improving since yesterday, more awake and communicative today, does not seem to be in any apparent distress, denies any fever, chills, nausea, vomiting, diarrhea, constipation or any urinary symptoms. 05/18/2019. Moderate improvement of her hip pain compared to yesterday, does not look in any acute distress, awake and alert x3, in no apparent distress, denies any fever, chills, nausea, vomiting, diarrhea, constipation or any urinary symptoms. Patient would like to go to inpatient rehab after discharge, I have informed her that I will try and see if he will qualify for that, I have informed her that I have consulted palliative care and she is willing to discuss her care with them. 05/19/2019. Patient still complaining of left hip pain, does not appear to be in acute distress, alert at x3, in no apparent respiratory distress, I have consulted palliative care and psychologist social for possible placement. Patient would like to go to inpatient rehab. Not sure if she will qualify. 05/20/2019. No acute events overnight. Patient comfortably sleeping easily arousable, still complaining of pelvic pain, denies any fever, chills, nausea, vomiting, diarrhea, constipation. Endorsing low appetite. As per primary nurse patient noted to be hallucinating at times but when asked patient denies it. Patient is pending transfer to rehab. 05/23/2019. No acute events overnight. Patient sleeping however easily arousable, stating that he is hurting in the left pelvis, denies any fever, chills, nausea, vomiting, diarrhea, endorses low appetite. Family were present at the bedside stated that she was able to eat a little bit. 2 over daughters 1 of home is the POA are in the room and they are discussing disposition. They are thinking about patient to be transitioned to home hospice. Reason For Visit: PELVIC FRACTURE Physical Exam Vital Signs: Temp Pulse Resp BP Pulse Ox 97.5 F 91 18 138/60 H 96 05/23/19 00:35 05/23/19 07:54 05/23/19 07:54 05/23/19 00:35 05/23/19 07:54 Intake & Output 05/22/19 05/23/19 05/24/19 06:59 06:59 06:59 Intake Total 170 660 150 Output Total 425 1350 Balance -255 -690 150 Weight 37.7 kg 36.2 kg General appearance: PRESENT: no acute distress, thin Respiratory exam: PRESENT: clear to auscultation marilyn. ABSENT: rales, rhonchi, wheezes Cardiovascular exam: PRESENT: RRR. ABSENT: diastolic murmur, rubs, systolic murmur GI/Abdominal exam: PRESENT: normal bowel sounds, soft. ABSENT: distended, gua rding, mass, organolmegaly, rebound, tenderness Extremities exam: PRESENT: tenderness - Left pelvic area. Neurological exam: PRESENT: alert, awake, oriented to person, oriented to place, CN II-XII grossly intact. ABSENT: motor sensory deficit Results Laboratory Results: 05/21/19 05:35 05/21/19 05:35 05/15/19 05/16/19 16:07 06:25 Creatine Kinase 173 H 88 Impressions: Cervical Spine CT 05/15/19 00:00 IMPRESSION: No fracture or static subluxation of the cervical spine. Head CT 05/15/19 00:00 IMPRESSION: No acute intracranial pathology. Small vessel white matter disease. EVIDENCE OF ACUTE STROKE: NO. Pelvis X-Ray 05/15/19 00:00 IMPRESSION: Fractures of the left superior and inferior pubic ramus. Chest/Abdomen CTA 05/16/19 00:00 IMPRESSION: Contrast bolus not adequate for evaluation of the pulmonary arteries. Slightly increased airspace disease in the superior segment left lower lobe. Otherwise similar parenchymal masses - nodular distortion bilaterally and right apical extrapleural gas -postsurgical changes. Chest X-Ray 05/21/19 00:00 IMPRESSION: Chronic pleural and parenchymal changes bilaterally. There is increased opacification in the right upper lobe compared to the earlier study. Cannot exclude an acute pneumonia. Assessment and Plan - Diagnosis (1) Pubic ramus fracture Qualifiers: Encounter type: initial encounter Fracture type: closed Laterality: left Qualified Code(s): S32.592A - Other specified fracture of left pubis, initial encounter for closed fracture Is this a current diagnosis for this admission?: Yes Plan: Due to mechanical fall. Orthopedic surgery consulted. No surgical intervention planned. Recommendations mobilization and weightbearing as tolerated. Supportive measures. Follow-up as outpatient in 6 weeks with radiographs. Continue PT OT. Pending transfer to rehab. (2) Depression Qualifiers: Depression Type: major depressive disorder Is this a current diagnosis for this admission?: Yes Plan: Denies any homicidal suicidal ideation. Continue Paxil. Will start on mirtazapine to help stimulate appetite as well as treat underlying depression. (3) Tobacco use disorder, severe, dependence Is this a current diagnosis for this admission?: Yes Plan: Counseled on quitting. NicoDerm patch provided. (4) COPD (chronic obstructive pulmonary disease) Qualifiers: COPD type: COPD with acute exacerbation Qualified Code(s): J44.1 - Chronic obstructive pulmonary disease with (acute) exacerbation Is this a current diagnosis for this admission?: Yes Plan: Improving. SPO2 WNL on 2 L. Not on home O2. Unfortunately still smoking. CTA limited to rule out PE otherwise unchanged from previous studies. Continue duo nebs, IV steroids, empiric IV antibiotics, pulmonary toileting, supplemental oxygen, ICS, LMA, LABA. (5) Cachexia Is this a current diagnosis for this admission?: Yes Plan: Due to underlying malignancy. Take dronabinol at home. Started dronabinol however the patient noticed to hallucinate at times and become somnolent. Dietitian has been consulted. Pending recommendation. DC dronabinol. Start on Megace 800 mg p.o. daily. (6) Lung malignancy Is this a current diagnosis for this admission?: Yes Plan: Stage IV lung cancer. Has established oncology follow-up as outpatient As per patient she is not getting any chemotherapy anymore. Palliative care consulted. Pending recommendations. Outpatient oncology follow-up.
[2019-05-23] MEDS: MIRTAZAPINE 15 MG TABLET PO SCH (21:38)
[2019-05-24] MEDS: LEVALBUTEROL HCL NEB 1.25 MG/3 ML AMPUL NEB SCH ×4 (01:48→19:46)
[2019-05-24] MEDS: IPRATROPIUM BROMIDE 0.02% NEB 0.5 MG/2.5 ML AMPUL NEB SCH ×4 (01:48→19:46)
[2019-05-24] MEDS: METRONIDAZOLE 500 MG/NS RTU 500 MG/100 ML RTUPB IV SCH ×2 (02:49→08:49)
[2019-05-24] MEDS: GUAIFENESIN/CODEINE PHOS 100-10 MG/ 5 ML UDC PO SCH ×3 (05:47→22:14)
[2019-05-24] MEDS: OXYCODONE-ACETAMINOPHEN 5-325 MG TABLET PO PRN (05:48)
[2019-05-24] MEDS: LORAZEPAM 1 MG TABLET PO PRN ×2 (06:01→08:57)
[2019-05-24] MEDS: HEPARIN SOD (PORCINE) 5,000 UNIT/ML 1 ML VIAL SUBCUT SCH ×3 (06:13→22:14)
[2019-05-24] MEDS: PAROXETINE HCL 20 MG TABLET PO SCH (08:49)
[2019-05-24] MEDS: BUDESONIDE NEB 0.5 MG/2 ML AMPUL NEB SCH ×2 (08:59→19:46)
[2019-05-24] MEDS: LEVALBUTEROL HCL NEB 0.63 MG/3 ML AMPUL NEB PRN ×2 (09:44→17:58)
[2019-05-24] MEDS ORDERED: LORAZEPAM 1 MG TABLET PO ONE (09:55)
[2019-05-24] MEDS ORDERED: ACETYLCYSTEINE 10% NEB 400 MG/4 ML VIAL NEB ONE (10:00)
[2019-05-24] MEDS: FAMOTIDINE 20 MG TABLET PO SCH ×2 (10:21→22:13)
[2019-05-24] MEDS: LISINOPRIL 5 MG TABLET PO SCH (10:22)
[2019-05-24] MEDS: DOCUSATE SODIUM 100 MG CAPSULE PO SCH ×2 (10:22→17:51)
[2019-05-24] MEDS: MEGESTROL ACETATE SUSP 400 MG/10 ML UDCUP PO SCH (10:22)
--- NOTE | 2019-05-24 11:49 | PDOC PROGRESS REPORT ---
Subjective Progress Note for:: 05/24/19 Subjective:: 74-year-old female past medical history of stage IV lung cancer, initially diagnosed in 2012, on chemotherapy, followed by oncologist outpatient, current smoker, severe COPD, tachycardia, brought to ED for evaluation after a fall. Patient sustained a fall after became entangled in her oxygen tubing was found on the floor by home health aide, was brought to ED where she was found to have an acute left superior and inferior rami fractures. 05/16/2019. Patient complaining of constant pelvic pain, 5/5, nonradiating, worsened with movement. Orthopedic surgery consulted however they are recommending nonsurgical management. Patient denies any fever, chills, nausea, vomiting, diarrhea, constipation or any urinary symptoms. 05/17/2019. Still complaining constant pelvic pain however improving since yesterday, more awake and communicative today, does not seem to be in any apparent distress, denies any fever, chills, nausea, vomiting, diarrhea, constipation or any urinary symptoms. 05/18/2019. Moderate improvement of her hip pain compared to yesterday, does not look in any acute distress, awake and alert x3, in no apparent distress, denies any fever, chills, nausea, vomiting, diarrhea, constipation or any urinary symptoms. Patient would like to go to inpatient rehab after discharge, I have informed her that I will try and see if he will qualify for that, I have informed her that I have consulted palliative care and she is willing to discuss her care with them. 05/19/2019. Patient still complaining of left hip pain, does not appear to be in acute distress, alert at x3, in no apparent respiratory distress, I have consulted palliative care and social media job titles for possible placement. Patient would like to go to inpatient rehab. Not sure if she will qualify. 05/20/2019. No acute events overnight. Patient comfortably sleeping easily arousable, still complaining of pelvic pain, denies any fever, chills, nausea, vomiting, diarrhea, constipation. Endorsing low appetite. As per primary nurse patient noted to be hallucinating at times but when asked patient denies it. Patient is pending transfer to rehab. 05/23/2019. No acute events overnight. Patient sleeping however easily arousable, stating that he is hurting in the left pelvis, denies any fever, chills, nausea, vomiting, diarrhea, endorses low appetite. Family were present at the bedside stated that she was able to eat a little bit. 2 over daughters 1 of home is the POA are in the room and they are discussing disposition. They are thinking about patient to be transitioned to home hospice. 06/03/2019. 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 Patient family in room. They have decided to take patient on home hospice. Patient denies any fever, chills, nausea, chest pain, diarrhea, constipation or any urinary symptoms. Reason For Visit: PELVIC FRACTURE Physical Exam Vital Signs: Temp Pulse Resp BP Pulse Ox 97.5 F 90 18 161/68 H 94 05/24/19 08:35 05/24/19 09:44 05/24/19 09:44 05/24/19 08:35 05/24/19 09:44 Intake & Output 05/23/19 05/24/19 05/25/19 06:59 06:59 06:59 Intake Total 660 500 Output Total 1350 1200 Balance -690 -700 Weight 36.2 kg 86.5 kg General appearance: PRESENT: mild distress Head exam: PRESENT: atraumatic, normocephalic Respiratory exam: PRESENT: crackles. ABSENT: rales, rhonchi, wheezes Cardiovascular exam: PRESENT: RRR. ABSENT: diastolic murmur, rubs, systolic murmur GI/Abdominal exam: PRESENT: normal bowel sounds, soft. ABSENT: distended, guarding, mass, organolmegaly, rebound, tenderness Neurological exam: PRESENT: alert, awake, oriented to person, oriented to place, oriented to time, CN II-XII grossly intact. ABSENT: motor sensory deficit Results Laboratory Results: 05/21/19 05:35 05/21/19 05:35 05/15/19 05/16/19 16:07 06:25 Creatine Kinase 173 H 88 Impressions: Cervical Spine CT 05/15/19 00:00 IMPRESSION: No fracture or static subluxation of the cervical spine. Head CT 05/15/19 00:00 IMPRESSION: No acute intracranial pathology. Small vessel white matter disease. EVIDENCE OF ACUTE STROKE: NO. Pelvis X-Ray 05/15/19 00:00 IMPRESSION: Fractures of the left superior and inferior pubic ramus. Chest/Abdomen CTA 05/16/19 00:00 IMPRESSION: Contrast bolus not adequate for evaluation of the pulmonary arteries. Slightly increased airspace disease in the superior segment left lower lobe. Otherwise similar parenchymal masses - nodular distortion bilaterally and right apical extrapleural gas -postsurgical changes. Chest X-Ray 05/21/19 00:00 IMPRESSION: Chronic pleural and parenchymal changes bilaterally. There is increased opacification in the right upper lobe compared to the earlier study. Cannot exclude an acute pneumonia. Assessment and Plan - Diagnosis (1) Pubic ramus fracture Qualifiers: Encounter type: initial encounter Fracture type: closed Laterality: left Qualified Code(s): S32.592A - Other specified fracture of left pubis, initial encounter for closed fracture Is this a current diagnosis for this admission?: Yes Plan: Due to mechanical fall. Orthopedic surgery consulted. No surgical intervention planned. Recommendations mobilization and weightbearing as tolerated. Supportive measures. Follow-up as outpatient in 6 weeks with radiographs. Continue PT OT. Transfer to home hospice. (2) Depression Qualifiers: Depression Type: major depressive disorder Is this a current diagnosis for this admission?: Yes Plan: Denies any homicidal suicidal ideation. Continue Paxil and mirtazapine. (3) Tobacco use disorder, severe, dependence Is this a current diagnosis for this admission?: Yes Plan: Counseled on quitting. NicoDerm patch provided. (4) COPD (chronic obstructive pulmonary disease) Qualifiers: COPD type: COPD with acute exacerbation Qualified Code(s): J44.1 - Chronic obstructive pulmonary disease with (acute) exacerbation Is this a current diagnosis for this admission?: Yes Plan: Improving. SPO2 WNL on 2 L. Not on home O2. Unfortunately still smoking. CTA limited to rule out PE otherwise unchanged from previous studies. Continue duo nebs, IV steroids,pulmonary toileting, supplemental oxygen, ICS, LMA, LABA. (5) Cachexia Is this a current diagnosis for this admission?: Yes Plan: Due to underlying malignancy. Take dronabinol at home. Started dronabinol however the patient noticed to hallucinate at times and become somnolent. Dietitian has been consulted. Pending recommendation. DC dronabinol. Start on Megace 800 mg p.o. daily. (6) Lung malignancy Is this a current diagnosis for this admission?: Yes Plan: Stage IV lung cancer. Has established oncology follow-up as outpatient As per patient she is not getting any chemotherapy anymore. Palliative care consulted. Pending recommendations. Outpatient oncology follow-up. Pending transfer to home hospice.
[2019-05-24] MEDS: LORAZEPAM INJ 2 MG/1 ML VIAL IV PRN (17:52)
[2019-05-24 17:57] LABS: HEMATOCRIT 32.7 % (36.0-47.0); HEMOGLOBIN 10.9 g/dL (12.0-15.5); MEAN CORPUSCULAR HEMOGLOBIN 31.1 pg (27.0-33.4); MEAN CORPUSCULAR HGB CONC 33.3 g/dL (32.0-36.0); MEAN CORPUSCULAR VOLUME 93 fl (80-97); PLATELET COUNT 156 10^3/uL (150-450); RED CELL DISTRIBUTION WIDTH 17.1 % (11.5-14.0); WHITE BLOOD COUNT 10.2 10^3/uL (4.0-10.5)
[2019-05-24 18:15] LABS: BLOOD UREA NITROGEN 9 mg/dL (7-20); CALCIUM 8.8 mg/dL (8.4-10.2); GLUCOSE 91 mg/dL (75-110); POTASSIUM 3.4 mmol/L (3.6-5.0)
[2019-05-24 18:17] LABS: ABSOLUTE LYMPHOCYTES# (MANUAL) 0.4 10^3/uL (0.5-4.7); ABSOLUTE MONOCYTES # (MANUAL) 0.6 10^3/uL (0.1-1.4); BASOPHILS % (MANUAL) 0 % (0-2); EOSINOPHILS % (MANUAL) 1 % (0-6); LYMPHOCYTES % (MANUAL) 4 % (13-45); METAMYELOCYTES % (MANUAL) 1 % (0-1); MONOCYTES % (MANUAL) 6 % (3-13); SEGMENTED NEUTROPHILS % (MAN) 88 % (42-78); TOTAL CELLS COUNTED 100
[2019-05-24 18:18] LABS: ANISOCYTOSIS 1+
[2019-05-24 18:19] LABS: PLATELET COMMENT ADEQUATE
[2019-05-24 18:20] LABS: CARBON DIOXIDE 32 mmol/L (22-30); CHLORIDE 105 mmol/L (98-107)
[2019-05-24 18:22] LABS: ANION GAP 4 (5-19)
[2019-05-24] MEDS: MIRTAZAPINE 15 MG TABLET PO SCH (22:13)
[2019-05-25] MEDS: IPRATROPIUM BROMIDE 0.02% NEB 0.5 MG/2.5 ML AMPUL NEB SCH ×4 (01:57→19:44)
[2019-05-25] MEDS: LEVALBUTEROL HCL NEB 1.25 MG/3 ML AMPUL NEB SCH ×4 (01:57→19:44)
[2019-05-25] MEDS: HEPARIN SOD (PORCINE) 5,000 UNIT/ML 1 ML VIAL SUBCUT SCH ×3 (05:54→21:20)
[2019-05-25] MEDS: GUAIFENESIN/CODEINE PHOS 100-10 MG/ 5 ML UDC PO SCH ×4 (05:55→21:19)
[2019-05-25 06:38] LABS: HEMATOCRIT 32.6 % (36.0-47.0); MEAN CORPUSCULAR HEMOGLOBIN 31.1 pg (27.0-33.4); MEAN CORPUSCULAR HGB CONC 33.7 g/dL (32.0-36.0); MEAN CORPUSCULAR VOLUME 92 fl (80-97); PLATELET COUNT 124 10^3/uL (150-450); RED BLOOD COUNT 3.54 10^6/uL (3.72-5.28); RED CELL DISTRIBUTION WIDTH 17.4 % (11.5-14.0); WHITE BLOOD COUNT 10.3 10^3/uL (4.0-10.5)
[2019-05-25 06:42] LABS: ANION GAP 5 (5-19); BLOOD UREA NITROGEN 9 mg/dL (7-20); CALCIUM 8.6 mg/dL (8.4-10.2); CARBON DIOXIDE 32 mmol/L (22-30); CHLORIDE 105 mmol/L (98-107); GLUCOSE 86 mg/dL (75-110); POTASSIUM 3.4 mmol/L (3.6-5.0)
[2019-05-25 07:17] LABS: ABSOLUTE LYMPHOCYTES# (MANUAL) 0.2 10^3/uL (0.5-4.7); ABSOLUTE MONOCYTES # (MANUAL) 0.1 10^3/uL (0.1-1.4); BASOPHILS % (MANUAL) 0 % (0-2); EOSINOPHILS % (MANUAL) 0 % (0-6); LYMPHOCYTES % (MANUAL) 2 % (13-45); MONOCYTES % (MANUAL) 1 % (3-13); SEGMENTED NEUTROPHILS % (MAN) 97 % (42-78); TOTAL CELLS COUNTED 100
[2019-05-25 07:18] LABS: ANISOCYTOSIS 1+; PLATELET COMMENT DECREASED
[2019-05-25] MEDS: BUDESONIDE NEB 0.5 MG/2 ML AMPUL NEB SCH ×2 (08:12→19:44)
[2019-05-25] MEDS: PAROXETINE HCL 20 MG TABLET PO SCH (08:18)
[2019-05-25] MEDS: DOCUSATE SODIUM 100 MG CAPSULE PO SCH ×2 (09:49→17:03)
[2019-05-25] MEDS: LISINOPRIL 5 MG TABLET PO SCH (09:54)
[2019-05-25] MEDS: FAMOTIDINE 20 MG TABLET PO SCH ×2 (09:54→21:20)
[2019-05-25] MEDS: MEGESTROL ACETATE SUSP 400 MG/10 ML UDCUP PO SCH (09:55)
[2019-05-25] MEDS: OXYCODONE-ACETAMINOPHEN 5-325 MG TABLET PO PRN ×2 (13:52→20:02)
--- NOTE | 2019-05-25 15:18 | PDOC PROGRESS REPORT ---
Subjective Progress Note for:: 05/25/19 Subjective:: No adverse events overnight. She sleeps a lot, and when she wakes up she is often encephalopathic and sometimes hallucinates. Intake has been minimal. Reason For Visit: PELVIC FRACTURE Physical Exam Vital Signs: Temp Pulse Resp BP Pulse Ox 97.3 F 116 H 20 123/61 90 L 05/25/19 10:39 05/25/19 14:00 05/25/19 14:00 05/25/19 10:39 05/25/19 14:00 Intake & Output 05/24/19 05/25/19 05/26/19 06:59 06:59 06:59 Intake Total 500 100 Output Total 1200 1575 Balance -700 -1475 Weight 86.5 kg General appearance: PRESENT: no acute distress, disheveled, thin. ABSENT: cooperative Teeth exam: PRESENT: edentulous Respiratory exam: PRESENT: symmetrical, unlabored, wheezes. ABSENT: accessory muscle use, chest wall tenderness, crackles, prolonged expiratory phas, rhonchi, tachypnea Cardiovascular exam: PRESENT: RRR, +S1, +S2 Pulses: PRESENT: normal carotid pulses Vascular exam: PRESENT: normal capillary refill GI/Abdominal exam: PRESENT: hypoactive bowel sounds, soft. ABSENT: distended, guarding, rebound, tenderness Extremities exam: ABSENT: clubbing, pedal edema Musculoskeletal exam: PRESENT: other - She had evidence of diffuse muscle wasting. ABSENT: deformity Neurological exam: PRESENT: oriented to person. ABSENT: awake - Will open her eyes to verbal command but her name is called but she went right back to sleep Psychiatric exam: PRESENT: flat affect Skin exam: PRESENT: dry, warm Results Laboratory Results: 05/25/19 06:10 05/25/19 06:10 05/24/19 05/24/19 05/25/19 17:45 17:45 06:10 WBC 10.2 10.3 RBC 3.50 L 3.54 L Hgb 10.9 L 11.0 L Hct 32.7 L 32.6 L MCV 93 92 MCH 31.1 31.1 MCHC 33.3 33.7 RDW 17.1 H 17.4 H Plt Count 156 124 L Seg Neutrophils % Not Reportable Not Reportable Sodium 141.4 Potassium 3.4 L Chloride 105 Carbon Dioxide 32 H Anion Gap 4 L BUN 9 Creatinine 0.40 L Est GFR ( Amer) > 60 Glucose 91 Calcium 8.8 Magnesium 1.6 05/25/19 06:10 WBC RBC Hgb Hct MCV MCH MCHC RDW Plt Count Seg Neutrophils % Sodium 141.6 Potassium 3.4 L Chloride 105 Carbon Dioxide 32 H Anion Gap 5 BUN 9 Creatinine 0.37 L Est GFR ( Amer) > 60 Glucose 86 Calcium 8.6 Magnesium 05/15/19 05/16/19 16:07 06:25 Creatine Kinase 173 H 88 Impressions: Cervical Spine CT 05/15/19 00:00 IMPRESSION: No fracture or static subluxation of the cervical spine. Head CT 05/15/19 00:00 IMPRESSION: No acute intracranial pathology. Small vessel white matter disease. EVIDENCE OF ACUTE STROKE: NO. Pelvis X-Ray 05/15/19 00:00 IMPRESSION: Fractures of the left superior and inferior pubic ramus. Chest/Abdomen CTA 05/16/19 00:00 IMPRESSION: Contrast bolus not adequate for evaluation of the pulmonary arteries. Slightly increased airspace disease in the superior segment left lower lobe. Otherwise similar parenchymal masses - nodular distortion bilaterally and right apical extrapleural gas -postsurgical changes. Chest X-Ray 05/21/19 00:00 IMPRESSION: Chronic pleural and parenchymal changes bilaterally. There is in creased opacification in the right upper lobe compared to the earlier study. Cannot exclude an acute pneumonia. Assessment and Plan - Diagnosis (1) Lung malignancy Is this a current diagnosis for this admission?: Yes Plan: Stage IV lung cancer. Has established oncology follow-up as outpatient As per patient she is not getting any chemotherapy anymore. Pending transfer to home hospice. (2) Pubic ramus fracture Qualifiers: Encounter type: initial encounter Fracture type: closed Laterality: left Qualified Code(s): S32.592A - Other specified fracture of left pubis, initial encounter for closed fracture Is this a current diagnosis for this admission?: Yes Plan: Due to mechanical fall. Orthopedic surgery consulted. No surgical intervention planned. Recommendations mobilization and weightbearing as tolerated. Supportive measures. Follow-up as outpatient in 6 weeks with radiographs. Continue PT OT. Transfer to home hospice. (3) Acute hypoxemic respiratory failure Is this a current diagnosis for this admission?: Yes Plan: Continues on BiPAP while asleep and supplemental O2 while awake, I suspect that this is probably more chronic in nature (4) COPD (chronic obstructive pulmonary disease) Qualifiers: COPD type: COPD with acute exacerbation Qualified Code(s): J44.1 - Chronic obstructive pulmonary disease with (acute) exacerbation Is this a current diagnosis for this admission?: Yes Plan: Improving. SPO2 WNL on 2 L. Not on home O2. Unfortunately still smoking. CTA limited to rule out PE otherwise unchanged from previous studies. Continue duo nebs, IV steroids,pulmonary toileting, supplemental oxygen, ICS, LMA, LABA. - Time Time Spent with patient: 15-24 minutes
[2019-05-25 17:17] LABS: APPEARANCE,URINE CLOUDY; BILIRUBIN,URINE NEGATIVE (NEGATIVE); COLOR,URINE YELLOW; GLUCOSE, URINE NEGATIVE (NEGATIVE); KETONES,URINE TRACE mg/dL (NEGATIVE); LEUKOCYTE ESTERASE,URINE NEGATIVE (NEGATIVE); NITRITE,URINE POSITIVE (NEGATIVE); PROTEIN,URINE NEGATIVE (NEGATIVE); URINE SPECIFIC GRAVITY 1.014; UROBILINOGEN,URINE NEGATIVE mg/dL (<2.0)
[2019-05-25] MEDS: ACETAMINOPHEN 325 MG TABLET PO PRN (18:18)
[2019-05-25] MEDS: MIRTAZAPINE 15 MG TABLET PO SCH (21:19)
[2019-05-25] MEDS: LORAZEPAM INJ 2 MG/1 ML VIAL IV PRN (21:20)
[2019-05-26] MEDS: LEVALBUTEROL HCL NEB 1.25 MG/3 ML AMPUL NEB SCH ×2 (02:25→08:09)
[2019-05-26] MEDS: IPRATROPIUM BROMIDE 0.02% NEB 0.5 MG/2.5 ML AMPUL NEB SCH ×2 (02:25→08:09)
[2019-05-26] MEDS: LORAZEPAM INJ 2 MG/1 ML VIAL IV PRN ×4 (06:15→21:46)
[2019-05-26] MEDS: HEPARIN SOD (PORCINE) 5,000 UNIT/ML 1 ML VIAL SUBCUT SCH (06:41)
[2019-05-26] MEDS: GUAIFENESIN/CODEINE PHOS 100-10 MG/ 5 ML UDC PO SCH ×3 (06:42→21:51)
[2019-05-26] MEDS: PAROXETINE HCL 20 MG TABLET PO SCH (07:23)
[2019-05-26] MEDS: OXYCODONE-ACETAMINOPHEN 5-325 MG TABLET PO PRN (07:23)
[2019-05-26] MEDS: BUDESONIDE NEB 0.5 MG/2 ML AMPUL NEB SCH (08:09)
[2019-05-26] MEDS ORDERED: HYDROCODONE/ACETAMINOPHEN 5-325 MG TABLET PO PRN (09:31)
[2019-05-26] MEDS: FAMOTIDINE 20 MG TABLET PO SCH (09:34)
[2019-05-26] MEDS: DOCUSATE SODIUM 100 MG CAPSULE PO SCH (09:34)
[2019-05-26] MEDS: MEGESTROL ACETATE SUSP 400 MG/10 ML UDCUP PO SCH (09:34)
[2019-05-26] MEDS: LISINOPRIL 5 MG TABLET PO SCH (09:35)
[2019-05-26] MEDS: MORPHINE SULFATE 10 MG/ML INJ IV PRN ×2 (11:38→22:57)
--- NOTE | 2019-05-26 14:55 | PDOC PROGRESS REPORT ---
Subjective Progress Note for:: 05/26/19 Subjective:: She got some Ativan this morning and her breathing slowed and we had to put her back on BiPAP for a little while. We are able to transition her off BiPAP after couple of hours. Her family all came in to see her and decided to make her comfort measures only today. Reason For Visit: PELVIC FRACTURE Physical Exam Vital Signs: Temp Pulse Resp BP Pulse Ox 98.0 F 142 H 44 H 145/70 H 100 05/25/19 20:32 05/26/19 08:10 05/26/19 08:10 05/25/19 20:32 05/26/19 08:10 Intake & Output 05/25/19 05/26/19 05/27/19 06:59 06:59 06:59 Intake Total 100 222 Output Total 1575 1200 Balance -1475 -978 General appearance: PRESENT: no acute distress, disheveled, thin. ABSENT: cooperative Teeth exam: PRESENT: edentulous Respiratory exam: PRESENT: symmetrical, unlabored, wheezes. ABSENT: accessory muscle use, chest wall tenderness, crackles, prolonged expiratory phas, rhonchi, tachypnea Cardiovascular exam: PRESENT: RRR, +S1, +S2 Pulses: PRESENT: normal carotid pulses Vascular exam: PRESENT: normal capillary refill GI/Abdominal exam: PRESENT: hypoactive bowel sounds, soft. ABSENT: distended, guarding, rebound, tenderness Extremities exam: ABSENT: clubbing, pedal edema Musculoskeletal exam: PRESENT: other - She had evidence of diffuse muscle wasting. ABSENT: deformity Neurological exam: PRESENT: oriented to person. ABSENT: awake - Will open her eyes to verbal command but her name is called but she went right back to sleep Psychiatric exam: PRESENT: flat affect Skin exam: PRESENT: dry, warm Results Laboratory Results: 05/25/19 06:10 05/25/19 06:10 05/25/19 16:00 Urine Color YELLOW Urine Appearance CLOUDY Urine pH 8.0 Ur Specific [place] 1.014 Urine Protein NEGATIVE Urine Glucose (UA) NEGATIVE Urine Ketones TRACE H Urine Blood SMALL H Urine Nitrite POSITIVE H Ur Leukocyte Esterase NEGATIVE Urine WBC (Auto) 7 Urine RBC (Auto) 76 05/15/19 05/16/19 16:07 06:25 Creatine Kinase 173 H 88 Impressions: Cervical Spine CT 05/15/19 00:00 IMPRESSION: No fracture or static subluxation of the cervical spine. Head CT 05/15/19 00:00 IMPRESSION: No acute intracranial pathology. Small vessel white matter disease. EVIDENCE OF ACUTE STROKE: NO. Pelvis X-Ray 05/15/19 00:00 IMPRESSION: Fractures of the left superior and inferior pubic ramus. Chest/Abdomen CTA 05/16/19 00:00 IMPRESSION: Contrast bolus not adequate for evaluation of the pulmonary arteries. Slightly increased airspace disease in the superior segment left lower lobe. Otherwise similar parenchymal masses - nodular distortion bilaterally and right apical extrapleural gas -postsurgical changes. Chest X-Ray 05/21/19 00:00 IMPRESSION: Chronic pleural and parenchymal changes bilaterally. There is increased opacification in the right upper lobe compared to the earlier study. Cannot exclude an acute pneumonia. Assessment and Plan - Diagnosis (1) Lung malignancy Is this a current diagnosis for this admission?: Yes Plan: Comfort measures (2) Pubic ramus fracture Qualifiers: Encounter type: initial encounter Fracture type: closed Laterality: left Qualified Code(s): S32.592A - Other specified fracture of left pubis, initial encounter for closed fracture Is this a current diagnosis for this admission?: Yes Plan: Continue with pain control, not a rehab candidate, now on comfort measures (3) Acute hypoxemic respiratory failure Is this a current diagnosis for this admission?: Yes Plan: Oxygen support as needed for comfort (4) COPD (chronic obstructive pulmonary disease) Qualifiers: COPD type: COPD with acute exacerbation Qualified Code(s): J44.1 - Chronic obstructive pulmonary disease with (acute) exacerbation Is this a current diagnosis for this admission?: Yes Plan: Not acutely exacerbated at this time, will continue with PRN breathing treatments for comfort - Time Time Spent with patient: 25-34 minutes
[2019-05-26 15:12] VITALS: BP 129/91
[2019-05-26] MEDS: MIRTAZAPINE 15 MG TABLET PO SCH (21:52)
[2019-05-27] MEDS: GUAIFENESIN/CODEINE PHOS 100-10 MG/ 5 ML UDC PO SCH ×2 (06:03→13:59)
[2019-05-27] MEDS: LORAZEPAM INJ 2 MG/1 ML VIAL IV PRN ×3 (07:29→19:08)
[2019-05-27] MEDS: PAROXETINE HCL 20 MG TABLET PO SCH (09:03)
[2019-05-27] MEDS: MORPHINE SULFATE 10 MG/ML INJ IV PRN ×2 (11:32→16:06)
--- NOTE | 2019-05-27 12:33 | PDOC PROGRESS REPORT ---
Subjective Progress Note for:: 05/27/19 Subjective:: 74-year-old female past medical history of stage IV lung cancer, initially diagnosed in 2012, on chemotherapy, followed by oncologist outpatient, current smoker, severe COPD, tachycardia, brought to ED for evaluation after a fall. Patient sustained a fall after became entangled in her oxygen tubing was found on the floor by home health aide, was brought to ED where she was found to have an acute left superior and inferior rami fractures. 05/16/2019. Patient complaining of constant pelvic pain, 5/5, nonradiating, worsened with movement. Orthopedic surgery consulted however they are recommending nonsurgical management. Patient denies any fever, chills, nausea, vomiting, diarrhea, constipation or any urinary symptoms. 05/17/2019. Still complaining constant pelvic pain however improving since yesterday, more awake and communicative today, does not seem to be in any apparent distress, denies any fever, chills, nausea, vomiting, diarrhea, constipation or any urinary symptoms. 05/18/2019. Moderate improvement of her hip pain compared to yesterday, does not look in any acute distress, awake and alert x3, in no apparent distress, denies any fever, chills, nausea, vomiting, diarrhea, constipation or any urinary symptoms. Patient would like to go to inpatient rehab after discharge, I have informed her that I will try and see if he will qualify for that, I have informed her that I have consulted palliative care and she is willing to discuss her care with them. 05/19/2019. Patient still complaining of left hip pain, does not appear to be in acute distress, alert at x3, in no apparent respiratory distress, I have consulted palliative care and manager social services for possible placement. Patient would like to go to inpatient rehab. Not sure if she will qualify. 05/20/2019. No acute events overnight. Patient comfortably sleeping easily arousable, still complaining of pelvic pain, denies any fever, chills, nausea, vomiting, diarrhea, constipation. Endorsing low appetite. As per primary nurse patient noted to be hallucinating at times but when asked patient denies it. Patient is pending transfer to rehab. 05/23/2019. No acute events overnight. Patient sleeping however easily arousable, stating that he is hurting in the left pelvis, denies any fever, chills, nausea, vomiting, diarrhea, endorses low appetite. Family were present at the bedside stated that she was able to eat a little bit. 2 over daughters 1 of home is the POA are in the room and they are discussing disposition. They are thinking about patient to be transitioned to home hospice. 05/24/2019. 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 Patient family in room. They have decided to take patient on home hospice. Patient denies any fever, chills, nausea, chest pain, diarrhea, constipation or any urinary symptoms. 05/27/2019. Both daughters present in the room. Patient comfortably sleeping, easily arousable, only oriented to person. BIOLOGICAL SCIENCE TECHNICIAN as of 05/26/2019. Discussed plan of care with both daughters they agree with BIOLOGICAL SCIENCE TECHNICIAN and on her to be sent home on home hospice. They would like to continue Ativan and morphine as needed and would like to hold scheduled meds. Reason For Visit: PELVIC FRACTURE Physical Exam Vital Signs: Temp Pulse Resp BP Pulse Ox 98.0 F 142 H 44 H 129/91 H 100 05/25/19 20:32 05/26/19 08:10 05/26/19 08:10 05/26/19 06:21 05/26/19 08:10 Intake & Output 05/26/19 05/27/19 05/28/19 06:59 06:59 06:59 Intake Total 222 0 Output Total 1200 Balance -978 0 General appearance: PRESENT: no acute distress, well-developed, well-nourished Respiratory exam: PRESENT: clear to auscultation marilyn. ABSENT: rales, rhonchi, wheezes Cardiovascular exam: PRESENT: RRR. ABSENT: diastolic murmur, rubs, systolic murmur GI/Abdominal exam: PRESENT: normal bowel sounds, soft. ABSENT: distended, guarding, mass, organolmegaly, rebound, tenderness Neurological exam: PRESENT: alert - Sleeping but easily arousable., oriented to person. ABSENT: motor sensory deficit Results Laboratory Results: 05/25/19 06:10 05/25/19 06:10 05/15/19 05/16/19 16:07 06:25 Creatine Kinase 173 H 88 Impressions: Cervical Spine CT 05/15/19 00:00 IMPRESSION: No fracture or static subluxation of the cervical spine. Head CT 05/15/19 00:00 IMPRESSION: No acute intracranial pathology. Small vessel white matter disease. EVIDENCE OF ACUTE STROKE: NO. Pelvis X-Ray 05/15/19 00:00 IMPRESSION: Fractures of the left superior and inferior pubic ramus. Chest/Abdomen CTA 05/16/19 00:00 IMPRESSION: Contrast bolus not adequate for evaluation of the pulmonary arteries. Slightly increased airspace disease in the superior segment left lower lobe. Otherwise similar parenchymal masses - nodular distortion bilaterally and right apical extrapleural gas -postsurgical changes. Chest X-Ray 05/21/19 00:00 IMPRESSION: Chronic pleural and parenchymal changes bilaterally. There is increased opacification in the right upper lobe compared to the earlier study. Cannot exclude an acute pneumonia. Assessment and Plan - Diagnosis (1) Comfort measures only status Is this a current diagnosis for this admission?: Yes Plan: Comfort measures status as of 05/26/2019. Both daughters , one of whom is the POA agree on BIOLOGICAL SCIENCE TECHNICIAN. (2) Pubic ramus fracture Qualifiers: Encounter type: initial encounter Fracture type: closed Laterality: left Qualified Code(s): S32.592A - Other specified fracture of left pubis, initial encounter for closed fracture Is this a current diagnosis for this admission?: Yes Plan: Continue with pain control, not a rehab candidate, now on comfort measures (3) Depression Qualifiers: Depression Type: major depressive disorder Is this a current diagnosis for this admission?: Yes Plan: As per family hold scheduled meds except for PRN Ativan and morphine. (4) Tobacco use disorder, severe, dependence Is this a current diagnosis for this admission?: Yes Plan: BIOLOGICAL SCIENCE TECHNICIAN as of 05/26/2019. Received counseling on quitting on admission. NicoDerm patch provided. (5) COPD (chronic obstructive pulmonary disease) Qualifiers: COPD type: COPD with acute exacerbation Qualified Code(s): J44.1 - Chronic obstructive pulmonary disease with (acute) exacerbation Is this a current diagnosis for this admission?: Yes Plan: Not acutely exacerbated at this time, will continue with PRN breathing treatments for comfort (6) Lung malignancy Is this a current diagnosis for this admission?: Yes Plan: Comfort measures
--- NOTE | 2019-05-27 12:38 | ADVANCED CARE ---
- Diagnosis (1) Comfort measures only status Diagnosis Current: Yes (2) Pubic ramus fracture Diagnosis Current: Yes (3) Depression Diagnosis Current: Yes (4) Tobacco use disorder, severe, dependence Diagnosis Current: Yes (5) COPD (chronic obstructive pulmonary disease) Diagnosis Current: Yes (6) Lung malignancy Diagnosis Current: Yes Resuscitation Status: Comfort Measures Only Discussion: Patient comfort measure of 05/26/2019. Patient sleeping comfortably, easily a rousable however only oriented to self. Both daughters present at the bedside, re-discussed prognosis and plan of care with both. Both agree on ENGRAVER [employer]AMES and waiting to be transferred to home hospice. Time Spent: 15 minutes
--- NOTE | 2019-05-28 13:37 | PDOC DISCHARGE SUMMARY ---
Impression - Admit/DC Date/PCP Admission Date/Primary Care Provider: 05/15/19 18:56 DORA FORBES MD Discharge Date: 05/28/19 - Discharge Diagnosis (1) Comfort measures only status Is this a current diagnosis for this admission?: Yes (2) Pubic ramus fracture Is this a current diagnosis for this admission?: Yes (3) Depression Is this a current diagnosis for this admission?: Yes (4) Tobacco use disorder, severe, dependence Is this a current diagnosis for this admission?: Yes (5) COPD (chronic obstructive pulmonary disease) Is this a current diagnosis for this admission?: Yes (6) Lung malignancy Is this a current diagnosis for this admission?: Yes - Additional Information Resuscitation Status: Comfort Measures Only Referrals: [facility] [Outside] Home Medications: Dronabinol [Marinol 2.5 mg Capsule] 2.5 mg PO BID 05/15/19 Ondansetron HCl [Zofran 8 mg Tablet] 8 mg PO Q8HP PRN 05/15/19 Paroxetine HCl [Paxil] 40 mg PO QAM 05/15/19 Simethicone [Gas Relief 80] 80 mg PO DAILYP PRN 05/15/19 Sucralfate [Carafate 1 gm Tablet] 1 gm PO QID 05/15/19 History of Present Illiness History of Present Illness: 74-year-old female past medical history of stage IV lung cancer, initially diagnosed in 2011, on chemotherapy, followed by oncologist outpatient, current smoker, severe COPD, tachycardia, brought to ED for evaluation after a fall. Patient sustained a fall after became entangled in her oxygen tubing was found on the floor by home health aide, was brought to ED where she was found to have an acute left superior and inferior rami fractures. Hospital Course Hospital Course: (1) Comfort measures only status Comfort measures status as of 05/26/2019. Both daughters , one of whom is the POA agree on DRY FINISHER. Patient was transferred to home hospice to 1 of her daughters home (2) Pubic ramus fracture Not a candidate for surgery. Orthopedic surgery was consulted. Supportive measures recommended. Was a started on supportive measures, with pain control. (3) Depression Initially was restarted on home meds. After being transitioned to DRY FINISHER as per family all oral p.o. meds were DC'd. (4) Tobacco use disorder, severe, dependence DRY FINISHER as of 05/26/2019. Received counseling on quitting on admission. NicoDerm patch provided. (5) COPD (chronic obstructive pulmonary disease) Not acutely exacerbated at this time, will continue with PRN breathing treatments for comfort (6) Lung malignancy Stage IV lung cancer. Status post chemoradiation. As per patient she does not want to undergo any more chemoradiation. Was transitioned to comfort measures on 05/26/2019. Comfort measures Physical Exam Vital Signs: Temp Pulse Resp BP Pulse Ox 98.0 F 142 H 44 H 129/91 H 100 05/25/19 20:32 05/26/19 08:10 05/26/19 08:10 05/26/19 06:21 05/26/19 08:10 Intake & Output 05/27/19 05/28/19 05/29/19 06:59 06:59 06:59 Intake Total 0 Balance 0 General appearance: PRESENT: no acute distress, other - Somnolent but arousable. Respiratory exam: PRESENT: clear to auscultation marilyn. ABSENT: rales, rhonchi, wheezes Cardiovascular exam: PRESENT: RRR. ABSENT: diastolic murmur, rubs, systolic murmur GI/Abdominal exam: PRESENT: normal bowel sounds, soft. ABSENT: distended, guarding, mass, organolmegaly, rebound, tenderness Neurological exam: PRESENT: other - Somnolent but arousable. On DRY FINISHER. Skin exam: PRESENT: dry, intact, warm. ABSENT: cyanosis, rash Results Laboratory Results: WBC 10.3 10^3/uL (4.0-10.5) 05/25/19 06:10 RBC 3.54 10^6/uL (3.72-5.28) L 05/25/19 06:10 Hgb 11.0 g/dL (12.0-15.5) L 05/25/19 06:10 Hct 32.6 % (36.0-47.0) L 05/25/19 06:10 MCV 92 fl (80-97) 05/25/19 06:10 MCH 31.1 pg (27.0-33.4) 05/25/19 06:10 MCHC 33.7 g/dL (32.0-36.0) 05/25/19 06:10 RDW 17.4 % (11.5-14.0) H 05/25/19 06:10 Plt Count 124 10^3/uL (150-450) L 05/25/19 06:10 Lymph % (Auto) Not Reportable 05/25/19 06:10 [place] % (Auto) Not Reportable 05/25/19 06:10 Eos % (Auto) Not Reportable 05/25/19 06:10 Baso % (Auto) Not Reportable 05/25/19 06:10 Absolute Neuts (auto) Not Reportable 05/25/19 06:10 Absolute Lymphs (auto) Not Reportable 05/25/19 06:10 Absolute Monos (auto) Not Reportable 05/25/19 06:10 Absolute Eos (auto) Not Reportable 05/25/19 06:10 Absolute Basos (auto) Not Reportable 05/25/19 06:10 Total Counted 100 05/25/19 06:10 Seg Neutrophils % Not Reportable 05/25/19 06:10 Seg Neuts % (Manual) 97 % (42-78) H 05/25/19 06:10 Band Neutrophils % 8 % (3-5) H 05/19/19 05:35 Lymphocytes % (Manual) 2 % (13-45) L 05/25/19 06:10 Monocytes % (Manual) 1 % (3-13) L 05/25/19 06:10 Eosinophils % (Manual) 0 % (0-6) 05/25/19 06:10 Basophils % (Manual) 0 % (0-2) 05/25/19 06:10 Metamyelocytes % 1 % (0-1) 05/24/19 17:45 Abs Neuts (Manual) 10.0 10^3/uL (1.7-8.2) H 05/25/19 06:10 Abs Lymphs (Manual) 0.2 10^3/uL (0.5-4.7) L 05/25/19 06:10 Abs Monocytes (Manual) 0.1 10^3/uL (0.1-1.4) 05/25/19 06:10 Absolute Eos (Manual) 0.0 10^3/uL (0.0-0.6) 05/25/19 06:10 Abs Basophils (Manual) 0.0 10^3/uL (0.0-0.2) 05/25/19 06:10 Platelet Comment DECREASED 05/25/19 06:10 Polychromasia SLIGHT 05/15/19 16:07 Hypochromasia 1+ 05/19/19 05:35 Poikilocytosis SLIGHT 05/21/19 05:35 Anisocytosis 1+ 05/25/19 06:10 Ovalocytes SLIGHT 05/21/19 05:35 PT 12.9 SEC (11.4-15.4) 05/15/19 16:30 INR 0.97 05/15/19 16:30 APTT 31.7 SEC (23.5-35.8) 05/15/19 16:30 Carbonic Acid 1.43 mmol/L (1.05-1.35) H 05/22/19 09:30 HCO3/H2CO3 Ratio 25:1 05/22/19 09:30 ABG pH 7.50 (7.35-7.45) H 05/22/19 09:30 ABG pCO2 47.5 mmHg (35-45) H 05/22/19 09:30 ABG pO2 52.9 mmHg (80-100) L 05/22/19 09:30 ABG HCO3 35.9 mmol/L (20-24) H 05/22/19 09:30 ABG Total CO2 37.3 mmol/L (21-25) H 05/22/19 09:30 ABG O2 Saturation 89.7 % (94-98) L 05/22/19 09:30 ABG Base Excess 11.2 mmol/L 05/22/19 09:30 FiO2 28% 05/22/19 09:30 Sodium 141.6 mmol/L (137-145) 05/25/19 06:10 Potassium 3.4 mmol/L (3.6-5.0) L 05/25/19 06:10 Chloride 105 mmol/L (98-107) 05/25/19 06:10 Carbon Dioxide 32 mmol/L (22-30) H 05/25/19 06:10 Anion Gap 5 (5-19) 05/25/19 06:10 BUN 9 mg/dL (7-20) 05/25/19 06:10 Creatinine 0.37 mg/dL (0.52-1.25) L 05/25/19 06:10 Est GFR ( Amer) > 60 (>60) 05/25/19 06:10 Est GFR (MDRD) Non-Af > 60 (>60) 05/25/19 06:10 Glucose 86 mg/dL (75-110) 05/25/19 06:10 Calcium 8.6 mg/dL (8.4-10.2) 05/25/19 06:10 Magnesium 1.6 mg/dL (1.6-2.3) 05/24/19 17:45 Total Bilirubin 0.5 mg/dL (0.2-1.3) 05/21/19 05:35 Direct Bilirubin 0.1 mg/dL (0.0-0.4) 05/21/19 05:35 Neonat Total Bilirubin Not Reportable 05/21/19 05:35 Neonat Direct Bilirubin Not Reportable 05/21/19 05:35 Neonat Indirect Bili Not Reportable 05/21/19 05:35 AST 20 U/L (14-36) 05/21/19 05:35 ALT 19 U/L (<35) 05/21/19 05:35 Alkaline Phosphatase 75 U/L (38-126) 05/21/19 05:35 Creatine Kinase 88 U/L (30-135) 05/16/19 06:25 Total Protein 5.5 g/dL (6.3-8.2) L 05/21/19 05:35 Albumin 3.0 g/dL (3.5-5.0) L 05/21/19 05:35 Prealbumin 7.1 mg/dL (17.6-36.0) L 05/19/19 05:35 TSH 0.74 uIU/mL (0.47-4.68) 05/16/19 06:25 Urine Color YELLOW 05/25/19 16:00 Urine Appearance CLOUDY 05/25/19 16:00 Urine pH 8.0 (5.0-9.0) 05/25/19 16:00 Ur Specific [place] 1.014 05/25/19 16:00 Urine Protein NEGATIVE mg/dL (NEGATIVE) 05/25/19 16:00 Urine Glucose (UA) NEGATIVE mg/dL (NEGATIVE) 05/25/19 16:00 Urine Ketones TRACE mg/dL (NEGATIVE) H 05/25/19 16:00 Urine Blood SMALL (NEGATIVE) H 05/25/19 16:00 Urine Nitrite POSITIVE (NEGATIVE) H 05/25/19 16:00 Urine Bilirubin NEGATIVE (NEGATIVE) 05/25/19 16:00 Urine Urobilinogen NEGATIVE mg/dL (<2.0) 05/25/19 16:00 Ur Leukocyte Esterase NEGATIVE (NEGATIVE) 05/25/19 16:00 Urine WBC (Auto) 7 /HPF 05/25/19 16:00 Urine RBC (Auto) 76 /HPF 05/25/19 16:00 U Hyaline Cast (Auto) 3 /LPF 05/25/19 16:00 Urine Bacteria (Auto) TRACE /HPF 05/25/19 16:00 Squamous Epi Cells Auto <1 /HPF 05/25/19 16:00 Urine Mucus (Auto) FEW /LPF 05/25/19 16:00 Urine Yeast (Budding) PRESENT /HPF 05/25/19 16:00 Urine Ascorbic Acid NEGATIVE (NEGATIVE) 05/25/19 16:00 Impressions: Cervical Spine CT 05/15/19 00:00 IMPRESSION: No fracture or static subluxation of the cervical spine. Head CT 05/15/19 00:00 IMPRESSION: No acute intracranial pathology. Small vessel white matter disease. EVIDENCE OF ACUTE STROKE: NO. Pelvis X-Ray 05/15/19 00:00 IMPRESSION: Fractures of the left superior and inferior pubic ramus. Chest/Abdomen CTA 05/16/19 00:00 IMPRESSION: Contrast bolus not adequate for evaluation of the pulmonary arteries. Slightly increased airspace disease in the superior segment left lower lobe. Otherwise similar parenchymal masses - nodular distortion bilaterally and right apical extrapleural gas -postsurgical changes. Chest X-Ray 05/21/19 00:00 IMPRESSION: Chronic pleural and parenchymal changes bilaterally. There is increased opacification in the right upper lobe compared to the earlier study. Cannot exclude an acute pneumonia. Plan Plan of Treatment: Transition to DRY FINISHER. Was discharged on home hospice. Stroke Is this a Stroke Patient?: No Acute Heart Failure - Is this a Heart Failure Patient?: No
== END 2019-05-27 19:30 | disposition hospice, home (50) | DRG 535 ==
LOC: ER 14:15 → EH 18:56 → 5 21:06
PROVIDERS: ADMIT Hospitalist; ATTEND Internal Medicine
DX: S32.592A Other specified fracture of left pubis, initial encounter for closed fracture (principal); J96.01 Acute respiratory failure with hypoxia; C34.90 Malignant neoplasm of unspecified part of unspecified bronchus or lung; R64 Cachexia; J44.1 Chronic obstructive pulmonary disease with (acute) exacerbation; R52 Pain, unspecified; F32.9 Major depressive disorder, single episode, unspecified; F17.210 Nicotine dependence, cigarettes, uncomplicated; W18.31XA Fall on same level due to stepping on an object, initial encounter; Y93.89 Activity, other specified; Y92.098 Other place in other non-institutional residence as the place of occurrence of the external cause; Z96.641 Presence of right artificial hip joint; Z60.2 Problems related to living alone; Z51.5 Encounter for palliative care
CPT/HCPCS: 36415; 36600; 70450; 71045; 71275; 72125; 72170; 80048; 80053; 81001; 82550; 82803; 83735; 84134; 84443; 85025; 85027; 85610; 85730; 87040; 94640; 94660; 94667; 94668; 96374; 99285; A9270-GY; J0360; J0696; J1642; J1644; J2060; J2270; J2300; J2405; J2920; J3010; J3490; J7120; J7614